=== PATIENT | male | born 1955 | race African-American/Black ===

== ENCOUNTER 2017-04-11 15:50 | Inpatient (IN) | payer MEDICARE, SELFPAY ==
[2017-04-11 16:49] LABS: #Eosinphils 0.1 thou/uL (0.0-0.7); #Lymphocytes 0.9 thou/uL (1.20-3.40); #Monocytes 0.6 thou/uL (0.11-0.59); #Neutrophils 5.4 thou/uL (1.40-6.50); %Basophils 0.4 % (0.0-1.0); %Eosinophils 0.8 % (0.0-10.0); %Monocytes 7.9 % (0.0-10.0); %Neutrophils 77.9 % (42.0-75.0); Hemoglobin 11.1 g/dL (14.0-18.0); Mean Corpuscular HGB CONC 31.6 g/dL (32.0-36.0); Mean Corpuscular Hemoglobin 31.2 pg (27.0-31.0); Mean Corpuscular Volume 98.8 fl (80.0-94.0); Mean Platelet Volume 7.2 fL (7.4-10.4); Platelet Count 226 thou/uL (130-400); RBC Distribution Width 18.4 % (11.5-14.5); Red Blood Cell (RBC) Count 3.56 mill/uL (4.70-6.10); White Blood Cell (WBC) Count 6.9 thou/uL (4.8-10.8)
--- NOTE | 2017-04-11 17:01 | RAD ---
PORTABLE AP CHEST X-RAY 04/11/17 HISTORY: Weakness for one day. Patient missed last three dialysis appointments. FINDINGS: There is a right internal jugular vein hemodialysis catheter noted in place with tip overlying the lo wer mediastinum probably in the region of the right atrium. A cardiac silhouette and bronchovascular markings are accentuated by the shallow depth of inspiration and portable technique. The cardiac silh ouette is probably enlarged. Pulmonary vasculature is at upper normal and again magnified by projecti on. No pleural effusion is appreciated. Osseous structures appear intact. Vascular calcifications see n in the thoracic aorta. IMPRESSION: 1. Tunneled right internal jugular vein hemodialysis catheter in place. The tip overlies the med iastinum and exact location is difficult to determine but overlie the right atrium. 2. Accentuation of the cardiac silhouette and bronchovascular markings due to a shallow depth of inspiration and portable technique. 3. Patchy density left lung base probably due to superimposition of structures and atelectasis d ue to depth of inspiration. Followup chest x-ray may be helpful to ensure this does not represent inf iltrate. POS: TORRIE
[2017-04-11 17:10] LABS: ALT (SGPT) 18 U/L (8-55); AST (SGOT) 24 U/L (5-34); Alkaline Phosphatase 58 U/L (40-150); Anion Gap 22 mmol/L (10-20); BUN (Urea Nitrogen) 107 mg/dL (8.4-25.7); Bilirubin, Total 0.6 mg/dL (0.2-1.2); CK (CPK) 392 U/L (30-200); Calc. Creatinine Clearance 0 mL/min (70-130); Calcium 10.3 mg/dL (7.8-10.44); Carbon Dioxide 22 mmol/L (23-31); Chloride 102 mmol/L (98-107); Estimated GFR-MDRD 3; Globulin 3.4 g/dL (2.4-3.5); Lipase 64 U/L (8-78); Magnesium 2.8 mg/dL (1.6-2.6); Protein, Total 7.4 g/dL (5.8-8.1); Sodium 138 mmol/L (136-145)
[2017-04-11 17:15] LABS: Glucose 51 mg/dL (80-115); Potassium 7.7 mmol/L (3.5-5.1)
[2017-04-11] MEDS ORDERED: Calcium Chloride 1 GM/10 ML Abboject SYRINGE ONE (17:32)
[2017-04-11] MEDS ORDERED: Insulin Regular 300 UNITS/3 ML VIAL ONE (17:32)
[2017-04-11] MEDS ORDERED: Sodium Bicarbonate 2.5 MEQ/5 ML VIAL ONE (17:32)
[2017-04-11] MEDS ORDERED: Dextrose 50% Abboject 50 ML SYRINGE ONE (17:34)
[2017-04-11] MEDS ORDERED: Sodium Bicarb 50 MEQ/50 ML Abboject 8.4% SYRINGE ONE (17:42)
[2017-04-11] MEDS ORDERED: Albuterol Sulfate 2.5 mg/3 ml Neb ONE (17:57)
[2017-04-11 18:00] LABS: CKMB 22.7 ng/mL (0-6.6)
[2017-04-11 19:08] LABS: Hep B Surf Ag Non-Reactive S/CO (NonReactive)
[2017-04-11 19:09] LABS: HBSAg Index 0.13 S/CO (0-0.99)
[2017-04-11 19:12] LABS: HBSAB Concentration 183.39 mIU/mL; Hep B Surf AB Reactive (NonReactive)
[2017-04-11] MEDS ORDERED: cloNIDine 0.1 MG TAB PO PRN (19:35)
[2017-04-11] MEDS ORDERED: Dextrose 50% Abboject 50 ML SYRINGE SLOW IVP PRN (19:36)
[2017-04-11] MEDS ORDERED: Nitroglycerin 0.4 MG TAB (25 Tab Bottle) PO PRN (19:36)
[2017-04-11] MEDS ORDERED: Dextrose 5% in Water 1,000 ML IV PRN (19:36)
[2017-04-11] MEDS ORDERED: Insulin Regular 300 UNITS/3 ML VIAL SC PRN ×2 (19:36)
[2017-04-11] MEDS ORDERED: Ondansetron ODT 4 MG TAB PO PRN (19:39)
[2017-04-11] MEDS ORDERED: Senokot 8.6 MG TAB PO PRN (19:39)
[2017-04-11] MEDS ORDERED: Ondansetron HCl/PF 4 MG/2 ML Vial IVP PRN (19:39)
[2017-04-11] MEDS ORDERED: hydrALAZINE 20 MG/ML VIAL SLOW IVP PRN (19:40)
[2017-04-11] MEDS ORDERED: Acetaminophen 325 MG TAB PO PRN (19:53)
[2017-04-11 20:01] LABS: Potassium 7.3 mmol/L (3.5-5.1)
--- NOTE | 2017-04-11 20:04 | HP ---
DATE OF ADMISSION: 04/11/2017 PRIMARY CARE PHYSICIAN: HELEN. PRIMARY CERTIFIED ADAPTED PHYSICAL EDUCATOR: Dr. Brooke. CHIEF COMPLAINT: Generalized weakness. The patient is a transfer from [facility]. HISTORY OF PRESENT ILLNESS: The patient is a 61-year-old male with diabetes mellitus, type 2; end-st age renal disease, on hemodialysis Thursday, , and Thursday; obesity and reactive airway disea se; who presented to [facility] with generalized weakness along with chills. His workup at [facility] was consistent with severe hyperkalemia with potassium of 8.6 with BUN 99, creatinine 18. 25. His chest x-ray showed possible fluid overload. He was transferred to this facility for [facility] admission per Dr. Brooke. He received calcium chloride, insulin D50, sodium bicarbonate, Kayexalate a nd nebulizer treatment in the emergency room. He is currently on noninvasive positive pressure venti lation. His potassium at this facility was 7.7. At this time, not much information is available fro m the patient due to somnolence as well as use of noninvasive positive pressure ventilation. PAST MEDICAL HISTORY: Obtained from ER record. 1. Diabetes mellitus, type 2. 2. End-stage renal disease, on hemodialysis Thursday, , and Thursday. 3. Hyperlipidemia. 4. Hypertension. 5. Obesity. 6. Reactive airway disease. 7. Restless leg syndrome. PAST SURGICAL HISTORY: 1. Dialysis access. The patient currently has a tunneled catheter. 2. Cholecystectomy. 3. Tonsillectomy. ALLERGIES: No known drug allergies. CURRENT HOME MEDICATIONS: Cannot be obtained from the patient due to current cognitive status. SOCIAL HISTORY: The patient currently lives at home. Per ER record, he is a former smoker. FAMILY HISTORY: Cannot be obtained from the patient due to current cognitive status. REVIEW OF SYSTEMS: Cannot be obtained from the patient due to the same reason. PHYSICAL EXAMINATION: VITAL SIGNS: At [facility] showed temperature 98.2, respirations of 18, pulse rate of 74, blood pressure 160/83. GENERAL: A 61-year-old male, obese, somnolent, on noninvasive positive pressure ventilation. HEENT: Head atraumatic, normocephalic. Sclerae are anicteric. NECK: Neck veins distended. No carotid bruit. LUNGS: Showed bibasilar rales with scattered rhonchi. No wheezing. Lungs were symmetrical. The abran hopper is currently on BiPAP. HEART: S1, S2 present. Regular rate and rhythm, 2/6 systolic murmur over the mitral area. No heave s or pulsation. ABDOMEN: Soft, obese, bowel sounds present. EXTREMITIES: 3+ edema in bilateral lower extremities. No calf tenderness. SKIN: Warm and dry. LYMPH NODES: No palpable lymph nodes in the neck. PERIPHERAL VASCULAR: Radial pulses palpable bilaterally. MUSCULOSKELETAL: No joint swelling or tenderness. NEUROLOGIC: The patient is somnolent. Detailed neurological examination cannot be obtained. PSYCHIATRY: As discussed above. The patient is easily arousable. LABORATORY FINDINGS: As discussed above. Chest x-ray by my review as discussed above. Hemoglobin w as 10.9 with hematocrit 34.5. Sodium was 138, potassium 8.6, bicarbonate was 18. Chloride was 100. EKG by my review showed nonspecific ST-T wave changes in the inferior lead. IMPRESSION: 1. Life-threatening hyperkalemia secondary to missed hemodialysis. The patient has missed 3 hemodia lysis sessions per ER report. 2. Metabolic acidosis secondary to the same reason. 3. End-stage renal disease, on hemodialysis Thursday, , and Thursday. 4. Generalized weakness with somnolence, probably secondary to #1. 5. Diabetes mellitus, type 2. 6. Chronic anemia secondary to renal insufficiency. 7. Elevated troponin. His troponin was 0.11 with CK-MB 22.7. 8. Acute hypoxic respiratory failure secondary to volume overload. 9. Hyperlipidemia. 10. History of reactive airway disease. PLAN: The patient will be monitored in the intermediate care unit. We will continue noninvasive pos itive pressure ventilation. Nephrology has been consulted for emergent hemodialysis. We will trend troponins. We will confirm home medications and start accordingly. Insulin sliding scale. Repeat l abs in a.m. Nitropatch for now. Plan of care was discussed with the patient. No family at the [facility].
[2017-04-11 20:12] LABS: Troponin I 0.104 ng/mL (< 0.028)
[2017-04-11] MEDS: Famotidine/PF 20 mg/2ml Vial SLOW IVP SCH (21:08)
[2017-04-11] MEDS: Heparin 5,000 UNITS/ML VIAL SC SCH (21:08)
[2017-04-11] MEDS: Docusate 100 MG CAP PO SCH (21:09)
[2017-04-12] MEDS: Nitroglycerin 2% Ointment 1 INCH/1 GM Packet TOP SCH ×5 (00:57→23:53)
[2017-04-12 04:52] LABS: #Lymphocytes 0.5 thou/uL (1.20-3.40); #Monocytes 0.5 thou/uL (0.11-0.59); #Neutrophils 2.7 thou/uL (1.40-6.50); %Basophils 0.9 % (0.0-1.0); %Eosinophils 1.2 % (0.0-10.0); Hemoglobin 9.6 g/dL (14.0-18.0); Mean Corpuscular HGB CONC 31.9 g/dL (32.0-36.0); Mean Corpuscular Hemoglobin 31.5 pg (27.0-31.0); Mean Corpuscular Volume 98.8 fl (80.0-94.0); Platelet Count 195 thou/uL (130-400); RBC Distribution Width 18.2 % (11.5-14.5); Red Blood Cell (RBC) Count 3.05 mill/uL (4.70-6.10); White Blood Cell (WBC) Count 3.8 thou/uL (4.8-10.8)
[2017-04-12 05:13] LABS: Anion Gap 14 mmol/L (10-20); BUN (Urea Nitrogen) 40 mg/dL (8.4-25.7); Calc. Creatinine Clearance 12 mL/min (70-130); Calcium 9.2 mg/dL (7.8-10.44); Carbon Dioxide 30 mmol/L (23-31); Chloride 98 mmol/L (98-107); Estimated GFR-MDRD 6; Glucose 97 mg/dL (80-115); Potassium 4.6 mmol/L (3.5-5.1); Sodium 137 mmol/L (136-145)
[2017-04-12 05:15] LABS: Troponin I 0.114 ng/mL (< 0.028)
[2017-04-12 07:12] VITALS: BMI 28.9
--- NOTE | 2017-04-12 08:14 | RAD ---
RADIOGRAPH CHEST 1 VIEW: Date: 04/12/17. Time: 5:24 a.m. HISTORY: A 61-year-old male with fluid volume overload and respiratory distress. COMPARISON: 04/11/17, 4:29 p.m. FINDINGS: Lungs are hypoinflated again, making this a limited study. There is pulmonary venous engorgement whi ch appears slightly improved, probably due to positional differences. Right IJ double lumen dialysis catheter deep in the heart. Cardiomegaly. No alexandra pulmonary alveolar edema or consolidation visua lized, although much of the lower lobes are obscured by the hypoinflation of the lungs. No pneumotho rax. Probable no significant interval change. IMPRESSION: 1. No definite interval change. 2. Right internal jugular dialysis catheter distal tip at midline, exact location uncertain. 3. Cardiomegaly and pulmonary vascular engorgement. SHRUTHI [] POS: TORRIE
[2017-04-12] MEDS: Docusate 100 MG CAP PO SCH ×2 (08:17→21:21)
[2017-04-12] MEDS: Aspirin 325 MG TAB PO SCH (08:17)
[2017-04-12] MEDS: Heparin 5,000 UNITS/ML VIAL SC SCH ×3 (08:17→21:22)
[2017-04-12] MEDS: Sevelamer Carbonate 800 MG TAB PO SCH ×2 (12:29→16:27)
--- NOTE | 2017-04-12 14:16 | PDOC.PN ---
- Subjective Encounter Start Date: 04/12/17 Encounter Start Time: 14:14 Subjective: feels much better,back to baseline -: no chest pain/SOB/chills/cough - Objective Resuscitation Status: Resuscitation Status FULL:Full Resuscitation Vital Signs & Weight: Vital Signs (12 hours) Temp Pulse Resp BP Pulse Ox 04/12/17 12:09 99.5 F 78 18 121/64 99 04/12/17 11:42 78 16 04/12/17 08:00 100 F H 81 14 96 04/12/17 07:54 94 16 04/12/17 07:42 100.0 F H 81 14 124/57 L 96 04/12/17 07:35 95 04/12/17 06:10 98.9 F 78 16 124/55 L 97 04/12/17 03:50 99.2 F 83 18 135/64 96 04/12/17 02:37 88 15 97 Weight Weight 213 lb 8 oz I&O: 04/11/17 04/12/17 04/13/17 06:59 06:59 06:59 Intake Total 360 Output Total 4000 Balance -3640 Result Diagrams: 04/12/17 04:22 04/12/17 04:22 Additional Labs: Accuchecks 04/12/17 04/12/17 04/12/17 11:45 05:42 02:29 POC Glucose 78 90 112 H 04/12/17 04/11/17 04/11/17 01:47 21:17 20:33 POC Glucose 69 L 92 67 L 04/11/17 04/11/17 18:32 17:51 POC Glucose 157 H 55 L* Radiology Reviewed by me: Yes (CXR-no PNA.mild pulm edema) Phys Exam - Physical Examination Constitutional: NAD HEENT: PERRLA, moist MMs, sclera anicteric, oral pharynx no lesions Neck: no nodes, no JVD, supple, full ROM Respiratory: no wheezing, no rales, no rhonchi, clear to auscultation bilateral Cardiovascular: RRR, no significant murmur, no rub, gallop Musculoskeletal: no edema, pulses present Neurological: non-focal, normal sensation, moves all 4 limbs Psychiatric: normal affect, A&O x 3 Skin: no rash Dx/Plan (1) Acute respiratory failure Code(s): J96.00 - ACUTE RESPIRATORY FAILURE, UNSP W HYPOXIA OR HYPERCAPNIA Status: Acute Qualifiers: Respiratory failure complication: hypoxia Qualified Code(s): J96.01 - Acute respiratory failure with hypoxia (2) Volume overload Code(s): E87.70 - FLUID OVERLOAD, UNSPECIFIED Status: Acute Comment: d/t missed HD (3) Acute kidney injury superimposed on chronic kidney disease Code(s): N17.9 - ACUTE KIDNEY FAILURE, UNSPECIFIED; N18.9 - CHRONIC KIDNEY DISEASE, UNSPECIFIED Status: Acute (4) Hyperkalemia Code(s): E87.5 - HYPERKALEMIA Status: Resolved (5) Fever Code(s): R50.9 - FEVER, UNSPECIFIED Status: Acute (6) ESRD (end stage renal disease) on dialysis Code(s): N18.6 - END STAGE RENAL DISEASE; Z99.2 - DEPENDENCE ON RENAL DIALYSIS Status: Acute (7) Troponin I above reference range Code(s): R74.8 - ABNORMAL LEVELS OF OTHER SERUM ENZYMES Status: Acute Comment: Likley chronic due to CKD or demand ischemia (8) HTN (hypertension) Code(s): I10 - ESSENTIAL (PRIMARY) HYPERTENSION Status: Chronic (9) HLD (hyperlipidemia) Code(s): E78.5 - HYPERLIPIDEMIA, UNSPECIFIED Status: Chronic (10) DM2 (diabetes mellitus, type 2) Status: Chronic (11) Anemia in chronic kidney disease Code(s): N18.9 - CHRONIC KIDNEY DISEASE, UNSPECIFIED; D63.1 - ANEMIA IN CHRONIC KIDNEY DISEASE Status: Chronic Qualifiers: Chronic kidney disease stage: on chronic dialysis Qualified Code(s): N18.6 - End stage renal disease; D63.1 - Anemia in chronic kidney disease; D63.1 - Anemia in chronic kidney disease; Z99.2 - Dependence on renal dialysis; Z99.2 - Dependence on renal dialysis; Z99.2 - Dependence on renal dialysis; Z99.2 - Dependence on renal dialysis - Plan PT/OT, out of bed/ambulate, DVT proph w/SCDs Off of [place] post HD & fluid removal.Potassium normalized.monitor -: Ok to transfer to tele. -: fever w unknown sourse.will check Blood Cx & line Cx.avoid ABx for now -: restart home meds & cont supportive care -: appreciate nephrology input. * .ECHO pending.cont ASA Review of Systems - Review of Systems Constitutional: weakness, malaise. negative: fever, chills, sweats, other ENT: negative: Ear Pain, Ear Discharge, Nose Pain, Nose Discharge, Nose Congestion, Mouth Pain, Mouth Swelling, Throat Pain, Throat Swelling, Other Respiratory: negative: Cough, Dry, Shortness of Breath, Hemoptysis, SOB with Excertion, Pleuritic Pain, Sputum, Wheezing Cardiovascular: negative: chest pain, palpitations, orthopnea, paroxysmal nocturnal dyspnea, edema, light headedness, other Gastrointestinal: negative: Nausea, Vomiting, Abdominal Pain, Diarrhea, Constipation, Melena, Hematochezia, Other Genitourinary: negative: Dysuria, Frequency, Incontinence, Hematuria, Retention , Other Musculoskeletal: negative: Neck Pain, Shoulder Pain, Arm Pain, Back Pain, Hand Pain, Leg Pain, Foot Pain, Other Skin: negative: Rash, Lesions, Diaz, Bruising, Other Neurological: negative: Weakness, Numbness, Incoordination, Change in Speech, Confusion, Seizures, Other - Medications/Allergies Allergies/Adverse Reactions: Allergies Allergy/AdvReac Type Severity Reaction Status Date / Time No Known Drug Allergies Allergy Verified 04/11/17 20:15 Medications: Current Medications Albuterol/Ipratropium (Duoneb) 3 ml NEB [id number] [facility] Last Admin: 04/12/17 11:42 Dose: 3 ml Albuterol/Ipratropium (Duoneb) 3 ml NEB [id number] PRN PRN Reason: SOB &/or Wheezing Aspirin (Aspirin) 325 mg PO DAILY [facility] Last Admin: 04/12/17 08:17 Dose: 325 mg Clonidine (Catapres) 0.1 mg PO Q4H PRN PRN Reason: Systolic BP > 180 Dextrose/Water (Dextrose 50%) 25 gm SLOW IVP PRN PRN PRN Reason: Hypoglycemia Docusate Sodium (Colace) 100 mg PO BID [facility] Last Admin: 04/12/17 08:17 Dose: Not Given Epoetin Graham (Procrit) 7,500 units SC Q7D [facility] Famotidine (Pepcid) 20 mg SLOW IVP QPM [facility] Last Admin: 04/11/17 21:08 Dose: 20 mg Glucagon (Glucagon) 1 mg IM PRN PRN PRN Reason: Hypoglycemia Heparin Sodium (Porcine) (Heparin) 5,000 units SC TID [facility] Last Admin: 04/12/17 08:17 Dose: 5,000 units Hydralazine HCl (Apresoline) 10 mg SLOW IVP Q4H PRN PRN Reason: SBP Greater Than 180 Dextrose/Water (D5w) 1,000 mls @ 0 mls/hr IV .Q0M PRN; As Directed PRN Reason: Hypoglycemia Insulin Human Regular (Humulin R) 0 units SC .MILD SLIDING SCALE PRN PRN Reason: Mild Correctional Scale Insulin Human Regular (Humulin R) 0 units SC .BEDTIME SLIDING SC PRN PRN Reason: Bedtime Correctional Scale Nitroglycerin (Nitrostat) 0.4 mg PO Q5MIN PRN PRN Reason: Chest Pain Nitroglycerin (Nitro-Bid 2% Ointment) 0.5 inch TOP Q6HR [facility] Last Admin: 04/12/17 12:27 Dose: 0.5 inch Ondansetron HCl (Zofran Odt) 4 mg PO Q6H PRN PRN Reason: Nausea/Vomiting Ondansetron HCl (Zofran) 4 mg IVP Q6H PRN PRN Reason: Nausea/Vomiting Senna (Senokot) 2 tab PO HSPRN PRN PRN Reason: Constipation Sevelamer Carbonate (Renvela) 1,600 mg PO TID-[facility] Last Admin: 04/12/17 12:29 Dose: 1,600 mg Sodium Chloride (Flush - Normal Saline) 10 ml IVF Q12HR [facility] Last Admin: 04/12/17 08:17 Dose: 10 ml Sodium Chloride (Flush - Normal Saline) 10 ml IVF PRN PRN PRN Reason: Saline Flush
--- NOTE | 2017-04-12 14:28 | CON ---
DATE OF CONSULTATION: 04/12/2017 HISTORY OF PRESENT ILLNESS: Mr. Monge is a 61-year-old black male with known history of ESRD, hyper tension, COPD, type 2 diabetes mellitus, and admitted for severe hyperkalemia. The report was he had a potassium greater than 8. He was also in CHF. Please note, this patient has missed dialysis for 1 week. This is due to transportation problems. We were consulted for emergency dialysis yesterday. He underwent 4-hour hemodialysis. We did use a 1-0 potassium bath in the first 2 hours. With emergent dialysis, his potassium is much improved from 8.6 to most recent value of 4.0. REVIEW OF SYSTEMS: Positive for generalized weakness. Positive for mild shortness of breath. No na usea, no vomiting, no syncopal episode, no diarrhea. Appetite fair. Energy level is fair. No gross hematuria, no dysuria, no urinary frequency, no medications, no melena, no hematemesis, no headache, no diplopia, no syncopal episode, no fever or chills. MEDICATIONS: Aspirin 325 mg every day, Catapres 0.1 mg q.4 hours p.r.n., Pepcid 20 mg IV p.r.n., fam otidine 20 mg IV daily, Humulin R sliding scale, Zofran p.r.n. PAST MEDICAL HISTORY: 1. History of ESRD secondary to a presumed diabetic nephropathy. 2. Longstanding hypertension. 3. Type 2 diabetes mellitus. 4. COPD. 5. Restless leg syndrome. PAST SURGICAL HISTORY: 1. Status post PD catheter placement with subsequent removal secondary to peritonitis. 2. Status post cholecystectomy. 3. Status post tonsillectomy. 4. Status post cuffed dialysis, catheter placement. ALLERGIES: None. TRAUMA: None. IMMUNIZATIONS: Up-to-date. HOSPITALIZATIONS: Please see past medical history. SOCIAL HISTORY: The patient is . 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 Status post blood transfusion. Education: Some college courses. No IV abbe g abuse. Smoked for 5 years, 1 pack a day. Alcohol rarely. Sedentary lifestyle. FAMILY HISTORY: No family history of ESRD. PHYSICAL EXAMINATION: VITAL SIGNS: Blood pressure is 124/57 with a heart rate of 81, respiratory rate 14, pulse ox 96%, te mperature 100. GENERAL EXAM: Awake, alert, comfortable, not in distress. SKIN: Adequate turgor. HEENT: He has slightly pale conjunctivae, anicteric sclerae. NECK: No neck mass, no carotid bruits, no JVD. CHEST: No deformities. LUNGS: Clear breath sounds, no wheezing, no crackles. HEART: Normal sinus rhythm. No murmur, no gallops, or rubs. ABDOMEN: Globular, soft, nontender, no masses. EXTREMITIES: Positive for edema, no deformities. NEUROLOGICAL EXTREMITIES: Moving all extremities. No tremors, no asterixis, no ataxia. LABORATORY DATA: Laboratories of 04/12/2017, white count 3.8, hemoglobin 9.6, sodium 137, potassium 4.6, chloride 98, carbon dioxide 30, BUN 40, creatinine 8.68, troponin I 0.114. Chest x-ray shows CH F. ASSESSMENT AND PLAN: 1. Hyperkalemia, resolved with emergent hemodialysis. No indication for dialysis today. 2. End-stage renal disease. We will place this patient on his regular Thursday, , and ay dialysis regimen. We would be also consulting Dr. iSngh/Dr. Beckett for PD catheter placement. 3. Congestive heart failure, clinically improved with dialysis. Continue fluid removal with dialysi s. 4. Anemia. Resume Epogen 7500 units subcutaneously every week. Overall, prognosis remains guarded.
[2017-04-12] MEDS: Epoetin (ESRD) 20,000 UNITS/ML SC SCH (16:29)
[2017-04-12] MEDS: Famotidine/PF 20 mg/2ml Vial SLOW IVP SCH (21:21)
--- NOTE | 2017-04-12 22:43 | CON ---
DATE OF CONSULTATION: 04/12/2017 SERVICE: Pulmonary Medicine. REASON FOR CONSULTATION: [facility] patient. HISTORY OF PRESENT ILLNESS: The patient is a 61-year-old -[place] male with past medical history significant for end-stage renal disease. He was in his usual state of health when he started missing dialysis, because his car broke down. He does not have the money to fix it. He called [employer] and [employer] for rides to his dialysis, but apparently they did not service him. As such, he ended up missing several dialysis sessions. He became increasingly short of breath. Apparently, he developed some confusion and he was brought to the emergency department. He has no recollection of those events. When he arrived here, he required noninvasive ventilation, and he was completely obtunded. He underwent dialysis last night and had a significant improvement in his mentation as well as shortness of breath. He has essentially returned to his usual state of health and has no specific complaints. There were no events overnight. PAST MEDICAL HISTORY: 1. End-stage renal disease, unfortunately without good access to transportation for dialysis. 2. Type 2 diabetes mellitus. 3. Hypertension. 4. Dyslipidemia. 5. Restless legs syndrome. 6. Obesity. PAST SURGICAL HISTORY: 1. Dialysis access procedures, multiple. 2. Cholecystectomy. 3. Tonsillectomy. ALLERGIES: No known drug allergies. MEDICATIONS: List of inpatient medications were reviewed. No specific updates were made. FAMILY HISTORY: Noncontributory. SOCIAL HISTORY: Negative for alcohol, tobacco, or illicit drug use. He has a [id number] history of smoking, but quit over 10 years ago. He has no exposure to chemicals, dust asbestos, or tuberculosis. REVIEW OF SYSTEMS: General, head, ears, eyes, nose, throat, cardiovascular, respiratory, GI, , musculoskeletal, neurologic, and skin is negative except as mentioned in the HPI. PHYSICAL EXAMINATION: VITAL SIGNS: Afebrile with a T-max of 100.0, pulse 78, blood pressure 121/64, respirations 18, saturation 99% on room air. GENERAL: The patient is awake, alert, in no apparent distress. LUNGS: Excellent air entry without prolonged expiratory phase, wheezing, rhonchi, or crackles. HEART: Normal rate, regular. ABDOMEN: Soft, nontender, nondistended. Bowel sounds are positive. MUSCULOSKELETAL: No cyanosis or clubbing. No pitting in the bilateral lower extremities. NEUROLOGIC: Grossly nonfocal. LABORATORY DATA: WBC 3.8, hemoglobin 9.6, platelets 195,000. Creatinine was 17.9, but is now 8.68. BUN 40, down from 107. Basic metabolic profile is, otherwise, unremarkable. Troponin 0.114. Hepatitis B surface antibody is reactive. IMAGING: Chest x-ray demonstrates findings consistent with pulmonary vascular congestion. Low lung volumes accentuate interstitial markings. There is a right-sided vascular catheter, which terminates in decent position. ASSESSMENT: 1. Acute hypoxic respiratory failure, resolved. 2. End-stage renal disease. 3. Medical noncompliance/inability to transport to and from dialysis. 4. Non-ST elevation myocardial, secondary to demand. PLAN: The patient is currently stable for transition out of the IMCU to the medical unit. I will put a case management consultation in to see if they have any tricks at getting this patient to and from dialysis. Pulmonary Critical Care will continue to follow if he remains here, though when he goes to the floor, he will have no further requirements for my service and I will sign off. 70 minutes have been devoted to this patient in various activities. I personally reviewed all imaging studies and laboratory data noted within this document. For greater than fifty percent of this time, I was interacting with the patient at the bedside or coordinating care with the care team. For the remainder of the time I was immediately available to the patient in the hospital unit. JAS
[2017-04-13] MEDS: Nitroglycerin 2% Ointment 1 INCH/1 GM Packet TOP SCH ×4 (05:07→23:52)
[2017-04-13 05:40] LABS: #Eosinphils 0.1 thou/uL (0.0-0.7); #Lymphocytes 1.2 thou/uL (1.20-3.40); #Monocytes 0.7 thou/uL (0.11-0.59); %Basophils 0.2 % (0.0-1.0); %Eosinophils 2.1 % (0.0-10.0); %Lymphocytes 20.3 % (21.0-51.0); %Monocytes 11.3 % (0.0-10.0); %Neutrophils 66.2 % (42.0-75.0); Hemoglobin 9.9 g/dL (14.0-18.0); Mean Corpuscular HGB CONC 31.5 g/dL (32.0-36.0); Mean Corpuscular Hemoglobin 30.6 pg (27.0-31.0); Mean Corpuscular Volume 97.3 fl (80.0-94.0); Mean Platelet Volume 7.1 fL (7.4-10.4); Platelet Count 212 thou/uL (130-400); RBC Distribution Width 18.2 % (11.5-14.5); Red Blood Cell (RBC) Count 3.24 mill/uL (4.70-6.10); White Blood Cell (WBC) Count 6.1 thou/uL (4.8-10.8)
[2017-04-13 05:53] LABS: Anion Gap 18 mmol/L (10-20); BUN (Urea Nitrogen) 52 mg/dL (8.4-25.7); Calc. Creatinine Clearance 10 mL/min (70-130); Calcium 9.3 mg/dL (7.8-10.44); Carbon Dioxide 25 mmol/L (23-31); Chloride 94 mmol/L (98-107); Estimated GFR-MDRD 5; Glucose 100 mg/dL (80-115); Potassium 5.2 mmol/L (3.5-5.1); Sodium 132 mmol/L (136-145)
[2017-04-13 08:52] LABS: Base Excess-Venous -6.4 mmol/L (-30.0-30.0); Bicarbonate (HCO3v) 23.8 mmol/L (1.0-85.0); CO2 Tension (PvCO2) 72.2 mmHg (41.0-51.0); pH (Venous) 7.125 (7.35-7.45); vO2 Saturation-calc 76.8 % (0.0-100.0)
[2017-04-13 08:57] LABS: Calcium, Ionized 1.18 mmol/L (1.12-1.32)
[2017-04-13] MEDS: Aspirin 325 MG TAB PO SCH (09:06)
[2017-04-13] MEDS: Docusate 100 MG CAP PO SCH ×2 (09:06→21:56)
[2017-04-13] MEDS: Heparin 5,000 UNITS/ML VIAL SC SCH (09:06)
--- NOTE | 2017-04-13 09:13 | PRG ---
DATE OF SERVICE: 04/13/2017 SUBJECTIVE: Mr. Monge is a 61-year-old black male who was admitted for severe hyperkalemia and CHF. He underwent emergent hemodialysis. Potassium was much improved as of yesterday. A surgical consu lt has been done for AV fistula placement with him and placement of a PD catheter. He has been unabl e to go to [place] due to transportation problems. He also missed dialysis for 1 week due to transpor tation problem. I feel that it would be to the best interest of the patient to resume back peritonea l dialysis. No other complaints today, he feels better. PHYSICAL EXAMINATION: VITAL SIGNS: Blood pressure is 154/80, heart rate 92, respiratory rate 18, temperature 99.2, pulse o x 94%. GENERAL: Noted to be awake, alert, comfortable, not in distress. SKIN: Adequate turgor. HEENT: He has pinkish conjunctivae, anicteric sclerae. NECK: No neck mass, no carotid bruits, no JVD. CHEST: No deformities. LUNGS: Clear breath sounds. No wheezing, no crackles. HEART: Normal sinus rhythm. No murmur, no gallops, no rubs. ABDOMEN: Globular, soft, nontender. EXTREMITIES: No edema, no deformities. MEDICATIONS: 04/13/2017 - Reviewed. LABORATORY: 04/13/2017 - White count 6.1, hemoglobin 9.9. Sodium 132, potassium 5.2, chloride 94, c arbon dioxide 25, BUN 52, creatinine 10.54, calcium 9.3. ASSESSMENT AND PLAN: 1. Severe hyperkalemia, resolved with emergent hemodialysis. 2. End-stage renal disease. We will resume back Thursday, , and Thursday hemodialysis regime n. Fluid removal only as tolerated. 3. Anemia, on Epogen - weekly dosing. 4. Congestive heart failure, clinically improved. Case discussed with Dr. Singh. The plan is to p lace a PD catheter and to place a backup AV fistula. I agree with current management. We will check base met and CBC in a.m.
[2017-04-13] MEDS: Sevelamer Carbonate 800 MG TAB PO SCH ×3 (09:55→18:41)
[2017-04-13] MEDS ORDERED: Gabapentin 300 MG CAP PO SCH (10:30)
[2017-04-13] MEDS ORDERED: CEFAZOLIN/Water 2 GM/20 ML SYRINGE SLOW IVP SCH (10:30)
[2017-04-13] MEDS ORDERED: Amlodipine 5 MG TAB PO SCH (10:30)
--- NOTE | 2017-04-13 12:00 | HP ---
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 He feels m uch better now that he has had several dialysis sessions. Dr. Rubén Brooke has asked me to see him regarding placement of peritoneal dialysis. Patient approximately 3 years ago had a hemodialysis catheter placed and the peritoneal dialysis cath eter placed. He was undergoing peritoneal dialysis, but developed an infection and had to have his p eritoneal dialysis catheter removed and for the past several months has been using a right IJ cuffed tunneled dialysis catheter placed in [place] at [facility]. Patient had a peritoneal dialysis cath eter for about two years, undergoing peritoneal dialysis. He had a place to an open incision in his upper abdomen in [place]. He has developed an incisional hernia from that. Patient has had a left Ci salazar fistula placed at the [facility] for more than two or three years ago. It never worked for roland lysis. He had a revised once at the wrist level and then a third time at the wrist level with appare ntly placement of a segmental prosthetic graft and that never worked. [facility] a right antecubital IV that upon my consultation request. Orders were submitted to avoid a ll of these above the wrist and this was immediately removed and they are making an attempt to place IVs in his hand. Ultrasound vein mapping both arms has been requested and pending. ALLERGIES: None. TOBACCO: None. ALCOHOL: Rarely. SOCIAL HISTORY: Patient lives alone, single. HOME MEDICATIONS: Hydralazine 25 b.i.d., glipizide 10 mg daily, amlodipine 10 mg daily, folic acid d aily, gabapentin 300 mg every 2 days, calcitriol 0.5 mcg daily. PAST SURGICAL HISTORY: Left wrist Juan Carlos fistula revised twice for a total of 3 operations, the last operation placing a prosthetic graft segment in the distal forearm and this fistula never worked for dialysis. Open peritoneal dialysis catheter placement in [place] with a supraumbilical midline incis ion resulting incisional hernia. Subsequent catheter removed, now on hemodialysis via right IJ michelle ter present for 3 months. Laparoscopic cholecystectomy in the past. Patient has had a chemical card iac stress test in [place]. In preparation for his renal transplant, he reports this cardiac stress test to be normal with normal cardiac function. He has not had a colonoscopy, but that is on his age nda in preparation for his renal transplant. PAST MEDICAL HISTORY: Diabetes mellitus type 2. He uses insulin occasionally. Pending his sliding scale insulin. End-stage renal disease on hemodialysis Thursday, , and Thursday in [place]. Hyperlipidemia, hypertension, obesity, reactive airway disease, restless leg syndrome. REVIEW OF SYSTEMS: Ten point otherwise noncontributory. PHYSICAL EXAMINATION: VITAL SIGNS: 6 feet, 227 pounds, 30 BMI, 92, 16, 154/80. HEENT: Unremarkable. LUNGS: Clear to auscultation. CARDIAC: Regular rate and rhythm without murmur or gallop. ABDOMEN: Soft, scars from left lower quadrant previous peritoneal dialysis catheter presence and rem oval. Incisional hernia, supraumbilical vertical scar from PD catheter placement in [place]. EXTREMITIES: Left wrist distal forearm. Palpable prosthetic graft thrombosed, no thrill, or bruit, bandage right antecubital area indicative of recent IV access, recently removed just prior to my visi t. Palpable radial pulses. LABORATORY DATA: White count 6, hemoglobin 9.9. ASSESSMENT AND PLAN: 1. End-stage renal disease in need of dialysis access. He has been on peritoneal dialysis previousl y, would like to return to that. We will plan Thursday afternoon. Laparoscopic mesh repair of incisi onal hernia, laparoscopic peritoneal dialysis catheter placement and placement of left or right arm p rimary fistula site depending on vein mapping. I have educated the patient that he should not allow anybody place an IV above his hand. He should s ave his arms for dialysis access. Even if he has a functioning fistula in one arm, he should save th e other arm and not allow IV access or blood draws in antecubital area. Understanding the fistula wi ll not last forever and that he may need to access the contralateral arm. 2. Incisional hernia. Plan repair using mesh, open versus laparoscopic repair considered. Consider ing his small defect about 3 cm, I believe that we can close this laparoscopically and place mesh and this will be less invasive to him. He should avoid lifting more than 25 to 30 pounds for [address]. 3. Diabetes mellitus. 4. Hypertension. 5. History of normal chemical cardiac stress test recently. 6. Due for colonoscopy. He is arranged as an outpatient.
--- NOTE | 2017-04-13 13:34 | ULT ---
UPPER EXTREMITY VENOUS MAPPING FOR DIALYSIS ACCESS: Date: 04/13/17 HISTORY: Patient has a right-sided subclavian central venous catheter. End-stage renal disease. COMPARISON: None. TECHNIQUE: Jacobo scale, color flow, Doppler imaging and spectral waveform analysis performed of the left and righ t upper extremity venous system. FINDINGS: RIGHT UPPER EXTREMITY BRACHIAL ARTERY: 5.3 mm RADIAL ARTERY: 2.4 mm ULNAR ARTERY: 2.4 mm CEPHALIC VEIN Proximal Humerus: 4.2 mm Clot in mid and distal humerus, antecubital fossa, and proximal forearm. Mid Forearm: 2.2 mm Distal Forearm: 2,1 mm BASILIC VEIN Proximal Humerus: 7.0 mm Mid Humerus: 6.2 mm Distal Humerus: 5.9 mm Antecubital Fossa: 6.3 mm Proximal Forearm: 2.8 mm Mid Forearm: 1.2 mm Distal Forearm: 0.7 mm There is echogenic focus in the right internal jugular vein suggesting a chronic clot. LEFT UPPER EXTREMITY BRACHIAL ARTERY: 4.6 mm RADIAL ARTERY: 2.4 mm ULNAR ARTERY: 2.6 mm CEPHALIC VEIN Proximal Humerus: 3.1 mm Mid Humerus: 2.9 mm Distal Humerus: 3.2 mm Antecubital Fossa: 3.8 mm Proximal Forearm: 1.7 mm Mid Forearm: 1.8 mm Distal Forearm: 1.6 mm BASILIC VEIN Proximal Humerus: 2.0 mm Mid Humerus: 2.4 mm Distal Humerus: 3.1 mm Antecubital Fossa: 1.5 mm Proximal Forearm: 0.6 mm Mid Forearm: 1.3 mm Distal Forearm: 0.6 mm IMPRESSION: Clot involving the right upper extremity and right internal jugular vein. Echogenic material in the r ight internal jugular vein suggests a chronic thrombus. POS: [facility]
--- NOTE | 2017-04-13 14:53 | PRG ---
DATE OF SERVICE: 04/13/2017 SERVICE: Pulmonary Medicine. INTERVAL HISTORY: The patient is doing great from cardiovascular and respiratory standpoint. He is breathing comfortably. He no longer has any confusion. He has been weaned down to room air and he h as no specific complaints. PHYSICAL EXAMINATION: VITAL SIGNS: Afebrile, pulse 94, blood pressure 162/82, respirations 16, saturation 93% on room air. GENERAL: The patient is awake, alert, no apparent distress. LUNGS: Excellent air entry. There is no prolonged expiratory phase or wheezing. HEART: Normal rate, regular. ABDOMEN: Soft, nontender, nondistended. Bowel sounds positive. MUSCULOSKELETAL: No cyanosis or clubbing. There is trace pitting in the bilateral lower extremities . NEUROLOGIC: Grossly nonfocal. LABORATORY DATA: WBC 6.1, hemoglobin 9.9, platelets 212,000. Creatinine 10.54, BUN 52 and trending upward. Potassium 5.2, sodium 132. Hepatitis B antigen is positive. Respiratory virus panel is unr emarkable. ASSESSMENT: 1. Acute hypoxic respiratory failure, resolved. 2. End-stage renal disease. 3. Medical noncompliance/inability to transport to and from dialysis. 4. Non-ST elevation myocardial infarction secondary to demand. 5. Hepatitis B. DISCUSSION AND PLAN: The patient is doing fantastic from a respiratory standpoint. He has no furthe r requirements for inpatient Pulmonary or Critical Care opinion. I will sign off at this time. Plea se call if any additional questions or concerns.
--- NOTE | 2017-04-13 20:20 | PDOC.PN ---
- Subjective Encounter Start Date: 04/13/17 Encounter Start Time: 11:30 Patient seen and examined. No new complaints. No overnight events - Objective Resuscitation Status: Resuscitation Status FULL:Full Resuscitation MAR Reviewed: Yes Vital Signs & Weight: Vital Signs (12 hours) Pulse Pulse Pulse Resp BP BP Pulse Ox 04/13/17 19:03 74 16 94 L 04/13/17 12:02 82 92 162/82 H 178/82 H 04/13/17 11:14 94 16 92 L Pulse Ox Pulse Ox 04/13/17 19:03 04/13/17 12:02 95 93 L 04/13/17 11:14 Weight Weight 227 lb 8 oz I&O: 04/12/17 04/13/17 04/14/17 06:59 06:59 06:59 Intake Total 360 Output Total 4000 0 Balance -3640 0 Result Diagrams: 04/14/17 04:24 04/14/17 14:18 Additional Labs: Accuchecks 04/13/17 04/13/17 04/12/17 18:03 11:50 21:00 POC Glucose 123 H 168 H 203 H EKG Reviewed by me: Yes (Tele SR) Phys Exam - Physical Examination Constitutional: NAD Respiratory: no wheezing, no rhonchi Cardiovascular: RRR, no rub Gastrointestinal: soft, non-tender, positive bowel sounds Musculoskeletal: edema present (improving) Dx/Plan - Plan DVT proph w/SCDs IMPRESSION: 1. Life-threatening hyperkalemia secondary to missed hemodialysis with Volume overload 2. Metabolic acidosis 3. End-stage renal disease, on hemodialysis Thursday, , and Thursday. 4. Generalized weakness with somnolence, probably secondary to #1. 5. Diabetes mellitus, type 2. 6. Chronic anemia secondary to renal insufficiency. 7. Elevated troponin due to demand ischemia/volume overload 8. Acute hypoxic respiratory failure secondary to volume overload. 9. Hyperlipidemia. 10. History of reactive airway disease. PLAN: * Dialysis per Nephro * Change diet to Renal * Resume Amlodipine * DC SQ Heparin - Patient ambulating * Cont sliding scale * Counselled on compliance with dialysis * Surg following for PD catheter/HD access Review of Systems - Review of Systems Respiratory: negative: Cough, Dry, Shortness of Breath, Hemoptysis, SOB with Excertion, Pleuritic Pain, Sputum, Wheezing Cardiovascular: negative: chest pain, palpitations, orthopnea, paroxysmal nocturnal dyspnea, edema, light headedness Gastrointestinal: negative: Nausea, Vomiting, Abdominal Pain, Diarrhea, Constipation, Melena, Hematochezia - Medications/Allergies Allergies/Adverse Reactions: Allergies Allergy/AdvReac Type Severity Reaction Status Date / Time No Known Drug Allergies Allergy Verified 04/11/17 20:15 Medications: Current Medications Albuterol/Ipratropium (Duoneb) 3 ml NEB [id number] [facility] Last Admin: 04/13/17 19:03 Dose: 3 ml Albuterol/Ipratropium (Duoneb) 3 ml NEB [id number] PRN PRN Reason: SOB &/or Wheezing Amlodipine Besylate (Norvasc) 5 mg PO DAILY [facility] Aspirin (Aspirin) 325 mg PO DAILY [facility] Last Admin: 04/13/17 09:06 Dose: 325 mg Calcitriol (Rocaltrol) 0.5 mcg PO DAILY [facility] Cefazolin Sodium (Ancef) 2 gm SLOW IVP WILLCALL [facility] Clonidine (Catapres) 0.1 mg PO Q4H PRN PRN Reason: Systolic BP > 180 Dextrose/Water (Dextrose 50%) 25 gm SLOW IVP PRN PRN PRN Reason: Hypoglycemia Docusate Sodium (Colace) 100 mg PO BID [facility] Last Admin: 04/13/17 09:06 Dose: Not Given Epoetin Graham (Procrit) 7,500 units SC Q7D [facility] Last Admin: 04/12/17 16:29 Dose: 7,500 units Gabapentin (Neurontin) 300 mg PO [facility] Glucagon (Glucagon) 1 mg IM PRN PRN PRN Reason: Hypoglycemia Hydralazine HCl (Apresoline) 10 mg SLOW IVP Q4H PRN PRN Reason: SBP Greater Than 180 Dextrose/Water (D5w) 1,000 mls @ 0 mls/hr IV .Q0M PRN; As Directed PRN Reason: Hypoglycemia Insulin Human Regular (Humulin R) 0 units SC .MILD SLIDING SCALE PRN PRN Reason: Mild Correctional Scale Insulin Human Regular (Humulin R) 0 units SC .BEDTIME SLIDING SC PRN PRN Reason: Bedtime Correctional Scale Nitroglycerin (Nitrostat) 0.4 mg PO Q5MIN PRN PRN Reason: Chest Pain Nitroglycerin (Nitro-Bid 2% Ointment) 0.5 inch TOP Q6HR [facility] Last Admin: 04/13/17 18:42 Dose: Not Given Ondansetron HCl (Zofran Odt) 4 mg PO Q6H PRN PRN Reason: Nausea/Vomiting Ondansetron HCl (Zofran) 4 mg IVP Q6H PRN PRN Reason: Nausea/Vomiting Senna (Senokot) 2 tab PO HSPRN PRN PRN Reason: Constipation Sevelamer Carbonate (Renvela) 1,600 mg PO TID-WM [facility] Last Admin: 04/13/17 18:41 Dose: 1,600 mg Sodium Chloride (Flush - Normal Saline) 10 ml IVF Q12HR [facility] Last Admin: 04/13/17 09:50 Dose: 10 ml Sodium Chloride (Flush - Normal Saline) 10 ml IVF PRN PRN PRN Reason: Saline Flush Vitamin B Complex/Vit C/Folic Acid (Nephro-Florence Tablet) 1 tab PO DAILY [facility]
[2017-04-14 04:40] LABS: #Eosinphils 0.2 thou/uL (0.0-0.7); #Lymphocytes 0.8 thou/uL (1.20-3.40); #Monocytes 0.5 thou/uL (0.11-0.59); #Neutrophils 2.7 thou/uL (1.40-6.50); %Basophils 0.9 % (0.0-1.0); %Eosinophils 5.1 % (0.0-10.0); %Lymphocytes 18.1 % (21.0-51.0); %Monocytes 11.3 % (0.0-10.0); %Neutrophils 64.7 % (42.0-75.0); Hemoglobin 9.6 g/dL (14.0-18.0); Mean Corpuscular HGB CONC 32.2 g/dL (32.0-36.0); Mean Corpuscular Hemoglobin 31.1 pg (27.0-31.0); Mean Corpuscular Volume 96.7 fl (80.0-94.0); Mean Platelet Volume 6.9 fL (7.4-10.4); Platelet Count 210 thou/uL (130-400); RBC Distribution Width 17.6 % (11.5-14.5); Red Blood Cell (RBC) Count 3.08 mill/uL (4.70-6.10); White Blood Cell (WBC) Count 4.2 thou/uL (4.8-10.8)
[2017-04-14 05:09] LABS: Anion Gap 19 mmol/L (10-20); BUN (Urea Nitrogen) 58 mg/dL (8.4-25.7); Calc. Creatinine Clearance 9 mL/min (70-130); Calcium 9.1 mg/dL (7.8-10.44); Carbon Dioxide 24 mmol/L (23-31); Chloride 93 mmol/L (98-107); Estimated GFR-MDRD 4; Glucose 96 mg/dL (80-115); Potassium 5.5 mmol/L (3.5-5.1); Sodium 130 mmol/L (136-145)
[2017-04-14] MEDS: Nitroglycerin 2% Ointment 1 INCH/1 GM Packet TOP SCH (05:52)
--- NOTE | 2017-04-14 08:45 | PRG ---
DATE OF SERVICE: 04/14/2017. SUBJECTIVE: Mr. Monge is a 61-year-old black male with ESRD and currently undergoing hemodialysis. I am at the bedside supervising his dialysis. He was admitted for CHF and severe hyperkalemia due t o a missed dialysis of 1 week. I have consulted Surgery, Dr. Singh, for placement of PD catheter as well as AV fistula. He prefers to go back to his PD regimen. Please note that in the past, his PD catheter was removed due to peritonitis that was refractory with antibiotics. No new complaints toda y, no chest pain or shortness of breath. PHYSICAL EXAMINATION: VITAL SIGNS: Blood pressure 161/84, heart rate 77, respiratory rate 14, temperature 98.2, pulse ox 9 4%. GENERAL: Noted to be awake, alert, comfortable, not in distress. SKIN: Adequate turgor. HEENT: Slightly pale conjunctivae, anicteric sclerae. NECK: No neck mass, no carotid bruits. No JVD. CHEST: No deformities. LUNGS: Clear breath sounds, no wheezing, no crackles. HEART: Normal sinus rhythm. No murmur, no gallops, no rubs. ABDOMEN: Globular, soft, nontender, no masses. EXTREMITIES: Positive for edema, but no deformities. MEDICATIONS: 04/14/2017 - Reviewed. LABORATORY: 04/14/2017 - White count 4.2, hemoglobin 9.6, hematocrit 29.8, platelet count 210,000. ASSESSMENT AND PLAN: 1. End-stage renal disease, stable. Continue current 3 times a week hemodialysis. Again, fluid rem oval as tolerated. Attempting between 3 and 4 liters of fluid removal. The patient is scheduled for PD catheter placement as well as AV fistula. AV fistula is for backup dialysis access. 2. Hyperkalemia, resolved. 3. Congestive heart failure, resolved with dialysis. Recheck base met and CBC in a.m.
[2017-04-14] MEDS ORDERED: Amlodipine 5 MG TAB PO SCH (09:00)
[2017-04-14] MEDS ORDERED: Heparin 10,000 UNITS/ 10 ML VIAL ONE ×3 (09:00→14:11)
[2017-04-14] MEDS: Sevelamer Carbonate 800 MG TAB PO SCH ×3 (09:25→19:59)
[2017-04-14] MEDS: Aspirin 81 mg Enteric Coated Tablet PO SCH (10:29)
[2017-04-14] MEDS: Folic Acid/Vit B Comp W-C PO SCH (10:30)
[2017-04-14] MEDS: Docusate 100 MG CAP PO SCH ×2 (10:30→21:32)
[2017-04-14] MEDS: Calcitriol 0.25 MCG CAP PO SCH (10:30)
[2017-04-14] MEDS: Amlodipine 5 MG TAB PO SCH ×2 (12:47→21:32)
[2017-04-14] MEDS ORDERED: Heparin 5,000 UNITS/ML VIAL ONE (13:53)
[2017-04-14] MEDS ORDERED: Bupivacaine HCl 0.5%/Epinephrine 1:200,000/PF 30 ml Vial ONE (13:53)
[2017-04-14] MEDS ORDERED: Heparin 10,000 UNITS/1 ML VIAL ONE (13:55)
[2017-04-14] MEDS ORDERED: Protamine Sulfate 50 MG/5 ML VIAL ONE (13:55)
[2017-04-14] MEDS ORDERED: Glycopyrrolate 0.2 MG/ML 5 ML SYRINGE ONE (14:01)
[2017-04-14] MEDS ORDERED: Lidocaine 1% PF 5 ML VIAL ONE (14:01)
[2017-04-14] MEDS ORDERED: Ondansetron HCl/PF 4 MG/2 ML Vial ONE ×2 (14:01→14:20)
[2017-04-14] MEDS ORDERED: PROPOFOL 200 MG/20 ML VIAL ONE (14:01)
[2017-04-14] MEDS ORDERED: Naloxone HCl 0.4 mg/ml Vial ONE ×2 (14:01→19:41)
[2017-04-14] MEDS ORDERED: Fentanyl 250 MCG/5 ML VIAL ONE (14:20)
[2017-04-14] MEDS ORDERED: Famotidine/PF 20 mg/2ml Vial ONE (14:20)
[2017-04-14] MEDS ORDERED: CEFAZOLIN/Water 2 GM/20 ML SYRINGE ONE (14:27)
[2017-04-14] MEDS ORDERED: Bupivacaine/Epinephrine 0.25% 30 ML VIAL ONE (14:28)
[2017-04-14 14:45] LABS: Anion Gap 10 mmol/L (10-20); Carbon Dioxide 31 mmol/L (23-31); Chloride 96 mmol/L (98-107); Potassium 4.3 mmol/L (3.5-5.1); Sodium 133 mmol/L (136-145)
--- NOTE | 2017-04-14 15:56 | PDOC.PN ---
- Subjective Encounter Start Date: 04/14/17 Encounter Start Time: 10:00 Patient seen and examined during dialysis. No new complaints. No overnight events - Objective Resuscitation Status: Resuscitation Status FULL:Full Resuscitation MAR Reviewed: Yes Vital Signs & Weight: Weight Weight 227 lb 8 oz I&O: 04/13/17 04/14/17 04/15/17 06:59 06:59 06:59 Output Total 0 Balance 0 Result Diagrams: 04/15/17 04:30 04/15/17 04:30 Additional Labs: Accuchecks 04/14/17 04/14/17 04/14/17 10:16 04:10 00:11 POC Glucose 91 100 157 H 04/13/17 04/13/17 20:18 18:03 POC Glucose 207 H 123 H EKG Reviewed by me: Yes (Tele SR) Phys Exam - Physical Examination Constitutional: NAD Respiratory: no wheezing, no rhonchi Cardiovascular: RRR, no rub Gastrointestinal: soft, non-tender, positive bowel sounds Musculoskeletal: no edema Neurological: moves all 4 limbs Dx/Plan - Plan DVT proph w/SCDs IMPRESSION: 1. Life-threatening hyperkalemia secondary to missed hemodialysis with Volume overload. improving 2. Metabolic acidosis. improving 3. End-stage renal disease, on hemodialysis Thursday, , and Thursday. 4. Generalized weakness with somnolence, probably secondary to #1. improving 5. Diabetes mellitus, type 2. on sliding scale 6. Chronic anemia secondary to renal insufficiency. 7. Elevated troponin due to demand ischemia (Pt did not have NSTEMI) 8. Acute hypoxic respiratory failure secondary to volume overload/Acute on Chronic diastolic heart failure 9. Hyperlipidemia. 10. History of reactive airway disease. PLAN: * PD catheter/HD access today * Dialysis per Nephro * DC NTG patch * Add Imdur * Cont current meds as below * Cont insulin sliding scale Review of Systems - Review of Systems Respiratory: negative: Cough, Dry, Shortness of Breath, Hemoptysis, SOB with Excertion, Pleuritic Pain, Sputum, Wheezing Cardiovascular: negative: chest pain, palpitations, orthopnea, paroxysmal nocturnal dyspnea, edema, light headedness Gastrointestinal: negative: Nausea, Vomiting, Abdominal Pain, Diarrhea, Constipation, Melena, Hematochezia - Medications/Allergies Allergies/Adverse Reactions: Allergies Allergy/AdvReac Type Severity Reaction Status Date / Time No Known Drug Allergies Allergy Verified 04/11/17 20:15 Medications: Current Medications Albuterol/Ipratropium (Duoneb) 3 ml NEB [id number] [facility] Last Admin: 04/14/17 13:48 Dose: Not Given Albuterol/Ipratropium (Duoneb) 3 ml NEB [id number] PRN PRN Reason: SOB &/or Wheezing Amlodipine Besylate (Norvasc) 5 mg PO BID [facility] Last Admin: 04/14/17 12:47 Dose: Not Given Aspirin (Ecotrin) 81 mg PO DAILY [facility] Last Admin: 04/14/17 10:29 Dose: Not Given Calcitriol (Rocaltrol) 0.5 mcg PO DAILY [facility] Last Admin: 04/14/17 10:30 Dose: Not Given Cefazolin Sodium (Ancef) 2 gm SLOW IVP WILLCALL [facility] Clonidine (Catapres) 0.1 mg PO Q4H PRN PRN Reason: Systolic BP > 180 Dextrose/Water (Dextrose 50%) 25 gm SLOW IVP PRN PRN PRN Reason: Hypoglycemia Docusate Sodium (Colace) 100 mg PO BID [facility] Last Admin: 04/14/17 10:30 Dose: Not Given Epoetin Graham (Procrit) 7,500 units SC Q7D [facility] Last Admin: 04/12/17 16:29 Dose: 7,500 units Gabapentin (Neurontin) 300 mg PO MWF [facility] Glucagon (Glucagon) 1 mg IM PRN PRN PRN Reason: Hypoglycemia Hydralazine HCl (Apresoline) 10 mg SLOW IVP Q4H PRN PRN Reason: SBP Greater Than 180 Dextrose/Water (D5w) 1,000 mls @ 0 mls/hr IV .Q0M PRN; As Directed PRN Reason: Hypoglycemia Insulin Human Regular (Humulin R) 0 units SC .MILD SLIDING SCALE PRN PRN Reason: Mild Correctional Scale Insulin Human Regular (Humulin R) 0 units SC .BEDTIME SLIDING SC PRN PRN Reason: Bedtime Correctional Scale Nitroglycerin (Nitrostat) 0.4 mg PO Q5MIN PRN PRN Reason: Chest Pain Ondansetron HCl (Zofran Odt) 4 mg PO Q6H PRN PRN Reason: Nausea/Vomiting Ondansetron HCl (Zofran) 4 mg IVP Q6H PRN PRN Reason: Nausea/Vomiting Senna (Senokot) 2 tab PO HSPRN PRN PRN Reason: Constipation Sevelamer Carbonate (Renvela) 1,600 mg PO TID-WM [facility] Last Admin: 04/14/17 12:47 Dose: Not Given Sodium Chloride (Flush - Normal Saline) 10 ml IVF Q12HR [facility] Last Admin: 04/14/17 10:30 Dose: Not Given Sodium Chloride (Flush - Normal Saline) 10 ml IVF PRN PRN PRN Reason: Saline Flush Vitamin B Complex/Vit C/Folic Acid (Nephro-Florence Tablet) 1 tab PO DAILY [facility] Last Admin: 04/14/17 10:30 Dose: Not Given
[2017-04-14] MEDS ORDERED: Ondansetron HCl/PF 4 MG/2 ML Vial IVP PRN (16:52)
[2017-04-14] MEDS ORDERED: Promethazine HCl 25 MG/ML VIAL SLOW IVP PRN (16:52)
[2017-04-14] MEDS ORDERED: Promethazine HCl 25 MG/ML VIAL IM PRN (16:52)
--- NOTE | 2017-04-14 18:47 | RAD ---
CHEST ONE VIEW 04/14/17 HISTORY: Central line. COMPARISON: Chest one view 04/12/17. FINDINGS: The left internal jugular central venous catheter is in place. Tip at the inferior SVC. Dialysis cath eter is similar. Lungs are hypoinflated. Mild volume overload. Marked cardiomegaly. Left basilar air space opacity. IMPRESSION: New left internal jugular central venous catheter tip at the cavoatrial junction. POS: [facility]
[2017-04-14] MEDS ORDERED: Acetaminophen 500 MG TAB PO PRN (20:46)
[2017-04-14] MEDS: traMADol HCl 50 MG TAB PO PRN (23:47)
[2017-04-15] MEDS: traMADol HCl 50 MG TAB PO PRN ×3 (02:10→20:37)
[2017-04-15 04:42] LABS: #Lymphocytes 0.4 thou/uL (1.20-3.40); #Monocytes 0.4 thou/uL (0.11-0.59); #Neutrophils 7.9 thou/uL (1.40-6.50); %Basophils 0.2 % (0.0-1.0); %Eosinophils 0.1 % (0.0-10.0); %Lymphocytes 4.8 % (21.0-51.0); %Monocytes 4.7 % (0.0-10.0); %Neutrophils 90.2 % (42.0-75.0); Hemoglobin 10.1 g/dL (14.0-18.0); Mean Corpuscular HGB CONC 31.8 g/dL (32.0-36.0); Mean Corpuscular Hemoglobin 31.4 pg (27.0-31.0); Mean Corpuscular Volume 98.5 fl (80.0-94.0); Mean Platelet Volume 6.9 fL (7.4-10.4); Platelet Count 220 thou/uL (130-400); RBC Distribution Width 17.5 % (11.5-14.5); Red Blood Cell (RBC) Count 3.23 mill/uL (4.70-6.10); White Blood Cell (WBC) Count 8.8 thou/uL (4.8-10.8)
[2017-04-15 04:53] LABS: Anion Gap 14 mmol/L (10-20); BUN (Urea Nitrogen) 24 mg/dL (8.4-25.7); Calc. Creatinine Clearance 15 mL/min (70-130); Calcium 8.8 mg/dL (7.8-10.44); Carbon Dioxide 29 mmol/L (23-31); Chloride 96 mmol/L (98-107); Estimated GFR-MDRD 8; Glucose 113 mg/dL (80-115); Potassium 6.2 mmol/L (3.5-5.1); Sodium 133 mmol/L (136-145)
--- NOTE | 2017-04-15 06:39 | OP ---
DATE OF PROCEDURE: 04/14/2017 PREOPERATIVE DIAGNOSES: New IV access. New left arm fistula, thrombosed iatrogenic right antecubita l vein, and cephalic vein secondary to nursing IV access (emergency room in [place] and left in place this hospitalization). PROCEDURE: Left IJ central line triple lumen, ultrasound used. SURGEON: Dr. Guero Singh. ANESTHESIA: General. PROCEDURE IN DETAIL: Determination of his operation, patient did not have an IV access, a small IV i n his right thumb had infiltrated and was not functional. He has a new fistula in his left arm and t here has been previous iatrogenic thrombosis antecubital vein, cephalic vein, burning bridges for fut ure dialysis access in the right upper arm as noted above. PROCEDURE: Left IJ central line triple lumen. SURGEON: Dr. Guero Singh. ANESTHESIA: General. Ultrasound guidance used. PROCEDURE IN DETAIL: At the patient's bedside in the operating room under general anesthesia, neck a nd chest were prepped with ChloraPrep, draped in routine fashion. Ultrasound guidance was used to ca nnulate the left internal jugular vein with trocar catheter and J-wire threaded. Trocar catheter rem julius. Skin incised and enlarged sharply. Seldinger technique used to place triple lumen catheter se curing it with 3-0 silk suture and Biopatch sterile dressing applied. Each port aspirated blood and flushed with saline solution. Patient tolerated the procedure well.
--- NOTE | 2017-04-15 06:57 | OP ---
DATE OF OPERATION: 04/14/2017 PREOPERATIVE DIAGNOSES: End-stage renal disease, hemodialysis catheter dependent. Thrombosed left s eminal fistula revised x3 with a segmented graft. Iatrogenic thrombosis, right antecubital vein, cep halic vein secondary to antecubital IV placed in [place] and left in place. This hospitalization terrell ires peritoneal dialysis, incisional hernia from prior peritoneal dialysis catheter placement, Muslim . PROCEDURE: Laparoscopic [address] mesh repair of supraumbilical incisional herni a, 3 cm in diameter with primary fascial closure. Laparoscopic omentopexy, laparoscopic peritoneal d ialysis catheter, double cuffed pigtail. Left arm primary AV fistula, perforating branch antecubital vein to the proximal radial artery outflow basilic and cephalic vein calibrated to 4 mm coronary dil ator without obstruction. Retrograde antecubital vein preserved. Note, basilic vein outflow left intact due to the fact the patient will be doing peritoneal dialysis and he has adequate maturation time. SURGEON: Guero Singh M.D. ANESTHESIA: General. Local 0.5% Marcaine with epinephrine 30 mL, mixed with 2% Xylocaine 10 mL, 0.2 5% Marcaine with epinephrine 30 mL. PROCEDURE IN DETAIL: The patient taken to the operating room where under general anesthesia, abdomen was clipped of hair as well as the right arm as well as the left arm and both were prepared with chl oraprep, draped in routine fashion. Bilateral subcostal far lateral incision made pneumoperitoneum t o 15 mmHg obtained with the Veress needle placing it with a 5 port laparoscope inserted. There was a n incisional hernia just above the umbilicus from the patient's previous open peritoneal dialysis cat heter placement in Muslim. A 11 mm port placed in the left lateral, far lateral mid abdominal area u nder laparoscopic visualization. The hernia sac and the incisional hernia defect was taken down with the LigaSure. Fascia approximated with 2 interrupted sutures of 0 Ethibond suture placed transabdom inal. Once this was closed by a decrease in pneumoperitoneum to 9 mmHg. Ventralight 11 cm round mes h was then placed fastening with tackers, placing it tightly. Transabdominal wall fixation sutures u sing the GraNee needle and 0 Ethibond suture used to place and sutured in four quadrants. Once this was accomplished, attention was then turned to the peritoneal dialysis catheter. A left periumbilica l incision made and an 8 mm port placed and directed caudally and the rectus sheath visualized laparo scopically staying clear of the mesh penetrating the abdominal wall dependently and placing a double cuffed pigtail peritoneal dialysis catheter in the abdominal cavity, placing the internal cuff in the rectus sheath and removing the port. The catheter was held in place with a laparoscopic grasper as a Juliet dissector was placed through a planned exit site and more dependent left lower quadrant and directed up to the counter incision, grasping the catheter and pulling it through its new tunnel bill wendie an external cuff beneath the skin exit site. Catheter pulled partly and then flushed with hepari nized saline solution 1000 units heparin per mL 10 mLs and the catheter capped. All omentopexy then undertaken with 0 Ethibond suture tacking it to the upper abdominal wall and laparoscopic visualizati on. Abdominal cavity irrigated, good hemostasis noted. Peritoneal dialysis catheter had a good lie, and the incisional hernia was well covered with mesh. Abdominal cavity irrigated and irrigant evacu ated. Good hemostasis noted. All pneumoperitoneum evacuated, all instruments removed, and all skin incisions approximated with interrupted subdermal 4-0 Monocryl and DermaGlue applied and sterile dres sing placed around the peritoneal dialysis catheter. At this point, the left upper extremity was tended to, and an incision was made longitudinally in the proximal volar forearm below the antecubital fossa, and carried down the skin and subcutaneous tissu e, identifying a large antecubital vein. It was dissected free. It was dissected free up to the cep halic vein, which was large in the upper arm. There was a bifurcation towards the medial arm towards the basilic vein and off this more medial basilic vein branch was a perforating branch was very larg e and was dissected free down to the deep fascia, dividing branch between 4-0 silk ties and clips. T he vein was divided, spatulated over a branch point and interrogated with coronary dilators, passing coronary dilators from 1.5 to 4 mm coronary dilator out the cephalic vein outflow. The cephalic vein with outflow was larger. The vein was spatulated and a proximal artery dissected free. The patient had been given 6000 units heparin intravenously. After adequate circulation time, the proximal noris ry was clamped proximally and distally vascular clamps. Longitudinal arteriotomy made sharply for a 2.5 cm anastomosis and end perforating branch antecubital vein to the side proximal artery anastomosi s created with continuous suture of 6-0 Prolene. After completing anastomosis, vascular clamps were released and there was excellent flow in the fistula interrogated by Doppler and cephalic vein outflo w. Then, decision was then at that point whether I should occlude the basilic vein outflow, but as t he patient would be do peritoneal dialysis for some time. Decision was made to leave the basilic vei n outflow intact. Good hemostasis noted. Patient given protamine 50 mg intravenous by Anesthesia. Surgicel placed about the wound. About the anastomosis, subcutaneous tissues approximately 3-0 Monoc ryl, skin with subdermal 4-0 Monocryl and DermaGlue applied. The patient tolerated the procedure lata travis
[2017-04-15] MEDS ORDERED: Vancomycin HCl 1 GM in Premix Bag 1 BAG IVPB SCH ×2 (07:45→08:00)
[2017-04-15] MEDS ORDERED: Vancomycin HCl 500 MG in Sodium Chloride 0.9% 100 ML IVPB SCH (08:00)
[2017-04-15] MEDS ORDERED: HOLD VANCOMYCIN FOR LEVEL >20 FS SCH (08:00)
[2017-04-15] MEDS ORDERED: Vancomycin HCl 750 MG in Sodium Chloride 0.9% 250 ML 250 ML IVPB SCH (08:00)
[2017-04-15] MEDS ORDERED: Vancomycin HCl 1.25 GM in Sodium Chloride 0.9% 250 ML 250 ML IVPB SCH (08:00)
[2017-04-15] MEDS: Sevelamer Carbonate 800 MG TAB PO SCH ×3 (08:04→17:51)
[2017-04-15] MEDS: Amlodipine 5 MG TAB PO SCH ×2 (08:05→20:38)
[2017-04-15] MEDS: Aspirin 81 mg Enteric Coated Tablet PO SCH (08:05)
[2017-04-15] MEDS: Docusate 100 MG CAP PO SCH ×2 (08:05→20:38)
[2017-04-15] MEDS: Folic Acid/Vit B Comp W-C PO SCH (08:05)
[2017-04-15] MEDS: Calcitriol 0.25 MCG CAP PO SCH (08:05)
[2017-04-15] MEDS: Gabapentin 300 MG CAP PO SCH (08:06)
[2017-04-15] MEDS ORDERED: Activase 2 MG VIAL CATH SCH (08:45)
--- NOTE | 2017-04-15 08:49 | PRG ---
DATE OF SERVICE: 04/15/2017 SUBJECTIVE: Mr. Mogne is a 61-year-old black male with ESRD and being followed by the [facility] for his maintenance hemodialysis. He underwent surgery yesterday. A new left arm, left central tay e lumen was placed yesterday. In addition, he had a code green yesterday. He is currently undergoin g dialysis today. Please note that with yesterday's surgery a PD catheter was said to have been plac ed and he had an AV fistula placed also. He is currently being dialyzed today - extra - due to the potassium 6.2. However, some difficulty wi th the current dialysis catheter. There is a decreased blood flow. My plan is to place at least 1 h our and to do at least a 2-hour hemodialysis using 1-0 potassium bath. We will then place him on his regular hemodialysis in a.m. PHYSICAL EXAMINATION: VITAL SIGNS: Blood pressure is 150/69, heart rate 80, respiratory rate 18, temperature 98.4, pulse o x 100%. GENERAL: Noted to be awake, alert, comfortable, not in distress. SKIN: Adequate turgor. HEENT: He has pinkish conjunctivae, anicteric sclerae. NECK: No neck mass, no carotid bruits, no JVD. CHEST: No deformities. LUNGS: Clear breath sounds. No wheezing, no crackles. HEART: Normal sinus rhythm. No murmur, no gallops or rubs. ABDOMEN: Globular, soft, nontender, no masses. EXTREMITIES: No edema, no deformities. Please note he has a PD catheter. MEDICATIONS: 04/15/2017 - Reviewed. LABORATORY: 04/15/2017 - White count 8.8, hemoglobin 10.1. Sodium 133, potassium 6.2, chloride 96, carbon dioxide 29, BUN 24, creatinine 7.34, glucose 113, calcium 8.8. ASSESSMENT AND PLAN: 1. End-stage renal disease, stable. Undergoing 2 hour hemodialysis. We will apply Activase due to the decreased blood flow with his dialysis catheter. We are using 1-0 potassium bath for his hyperka lemia: 2. Positive blood culture x1, gram positive cocci done 04/14/2017. The second culture was negative. My plan is to repeat another blood culture x2 with this patient and depending what the finding is, we will empirically treat with IV antibiotics. It is possible that 1 positive culture may have been a contaminant. Overall, I agree with current management.
[2017-04-15] MEDS ORDERED: Heparin 10,000 UNITS/ 10 ML VIAL ONE (10:00)
--- NOTE | 2017-04-15 10:02 | PQF ---
DATE: 04-15-17 ATTN: DR. NILDA MILLER Please exercise your independent, professional judgment in responding to the clarification form. Clinical indicators are provided on the bottom of this form for your review Please check appropriate box(s): HEART FAILURE: A. TYPE: [ ] Systolic / HFrEF [ ] Diastolic / HFpEF [ ] Combined Systolic / Diastolic B. ACUITY [ ] Acute [ ] Acute on Chronic [ ] Chronic [ ] Other diagnosis [ ] Unable to determine In addition, please specify: Present on Admission (POA): [ ] Yes [ ] No [ ] Unable to determine For continuity of documentation, please document condition throughout progress notes and discharge summary. Thank You. CLINICAL INDICATORS - SIGNS / SYMPTOMS / LABS ER DIAGNOSIS: HYPERKALEMIA, ELEVATED TROPONIN, FLUID OVERLOAD, RESPIRATORY FAILURE H&P: LIFE-THREATENING HYPERKALEMIA 2/2 TO MISSED HD, ACUTE HYPOXIA RESPIRATORY FAILURE 2/2 TO VOLUME OVERLOAD CONSULT NOTE DR. COLON 04-12-17: THE REPORT WAS HE HAD A POTASSIUM GREATER THAN 8. HE WAS ALSO IN CHF. CONGESTIVE HEART FAILURE, CLINICALLY IMPROVED WITH DIALYSIS. CONTINUE FLUID REMOVAL WITH DIALYSIS. PN 04-14-17: LIFE-THREATENING HYPERKALEMIA 2/2 TO MISSED HD WITH VOLUME OVERLOAD. BNP: 04-11-17: 715.5 RISKS: H&P: SEVERE HYPERKALEMIA, HYPERLIPIDEMIA, HTN, FORMER SMOKER, ESRD TREATMENTS: CARDIAC MONITORING RESPIRATORY ASSESSMENT BIPAP, O2 USE (This form is maintained as a part of the permanent medical record) 2014 [employer] All Rights Reserved [email or web address] Office: [phone] JAS
--- NOTE | 2017-04-15 10:20 | PQF ---
DATE: 04-15-17 ATTN: DR. NILDA MILLER Please exercise your independent, professional judgment in responding to the clarification form. Clinical indicators are provided on the bottom of this form for your review Please check appropriate box(s): [ ] NSTEMI [ ] AMI Type II [ ] Demand Ischemia [ ] Other diagnosis [ ] Unable to determine In addition, please specify: Present on Admission (POA): [ ] Yes [ ] No [ ] Unable to determine CLINICAL INDICATORS - SIGNS / SYMPTOMS / LABS ER DIAGNOSIS: HYPERKALEMIA, ELEVATED TROPONIN, FLUID OVERLOAD, RESPIRATORY FAILURE PN DR. STONE 04-12-17: TROPONIN I ABOVE REFERENCE RANGE LIKELY CHRONIC DUE TO CKD OR DEMAND ISCHEMIA CONSULT NOTE DR. GARCIA 04-12-17: NON-ST ELEVATION MYOCARDIAL, SECONDARY TO DEMAND. TROPONIN: 04-11-17: 0.110, 3-18: 0.104, 3-18: 0.114 RISKS: H&P: DM 2, OBESITY, SEVERE HYPERKALEMIA, HYPERLIPIDEMIA, HTN, FORMER SMOKER, ESRD TREATMENTS:RESPIRATORY ASSESSMENT: BIPAP USE, O2 USE This form is maintained as a part of the permanent medical record) 2014 [employer] All Rights Reserved [email or web address] Office: [phone] [facility] MEDICAL CENTERNicolette
[2017-04-15] MEDS ORDERED: Vancomycin HCl 1.5 GM in Sodium Chloride 0.9% 250 ML 300 ML IVPB SCH (12:00)
--- NOTE | 2017-04-15 19:12 | PRG ---
DATE OF SERVICE: 04/15/2017 SUBJECTIVE: Mr. Monge is doing well today. OBJECTIVE: ABDOMEN: Soft and nontender. LUNGS: Clear to auscultation. EXTREMITIES: He has a good thrill and bruit over his left arm fistula site. Surgical wound looks go od. GENITOURINARY: Peritoneal dialysis catheter dressing intact in the left lower quadrant abdomen. ASSESSMENT AND PLAN: The patient is doing well status post laparoscopic incisional hernia repair, pl acement of peritoneal dialysis catheter and placement of left arm fistula. We would recommend utiliz e his left arm, exercise it and use it unrestricted. Patient should leave his left lower quadrant dr grissom over his peritoneal dialysis catheter intact and see the peritoneal dialysis nurse in 4-7 days to change the dressing, flush the catheter and change the attachments. The patient can start doing peritoneal dialysis in 3-4 weeks. He should follow up in my office in 2-3 weeks. Patient can be dis charged home at that time from my standpoint. The patient has outflow in his left arm fistula cephal ic and basilic vein, outflow is intact, noting that he would be doing peritoneal dialysis and this wo uld have plenty of time to mature.
--- NOTE | 2017-04-15 20:41 | PDOC.PN ---
- Subjective Encounter Start Date: 04/15/17 Encounter Start Time: 14:30 Patient seen and examined. No new complaints. Overnight events noted - Objective Resuscitation Status: Resuscitation Status FULL:Full Resuscitation MAR Reviewed: Yes Vital Signs & Weight: Vital Signs (12 hours) Temp Pulse Resp BP BP Pulse Ox 04/15/17 20:38 83 124/59 L 04/15/17 19:48 99.0 F 83 14 98 04/15/17 19:47 99.0 F 83 14 135/64 98 04/15/17 18:19 77 16 100 04/15/17 15:13 98.2 F 79 20 116/60 100 04/15/17 14:43 77 14 Weight Weight 228 lb 4.8 oz I&O: 04/14/17 04/15/17 04/16/17 06:59 06:59 06:59 Intake Total 420 1210 Output Total 5 3000 Balance 415 -3700 Result Diagrams: 04/16/17 05:31 04/16/17 05:31 Additional Labs: Accuchecks 04/15/17 04/15/17 04/15/17 20:19 17:03 12:42 POC Glucose 130 H 112 H 109 04/15/17 04/15/17 04/14/17 04:03 00:23 21:20 POC Glucose 124 H 123 H 109 04/14/17 19:44 POC Glucose 101 EKG Reviewed by me: Yes (Tele SR) Phys Exam - Physical Examination Constitutional: NAD Respiratory: no wheezing, no rhonchi Cardiovascular: RRR, no rub Gastrointestinal: soft, non-tender, positive bowel sounds Musculoskeletal: no edema Neurological: moves all 4 limbs Dx/Plan - Plan DVT proph w/SCDs IMPRESSION: 1. Life-threatening hyperkalemia secondary to missed hemodialysis with Volume overload. improving 2. Metabolic acidosis. improving 3. End-stage renal disease, on hemodialysis Thursday, , and Thursday. 4. Generalized weakness with somnolence, probably secondary to #1. improving 5. s/p Code green 6. Chronic anemia secondary to renal insufficiency. 7. Elevated troponin due to demand ischemia (Pt did not have NSTEMI) 8. Acute hypoxic respiratory failure secondary to volume overload/Acute on Chronic diastolic heart failure 9. 1/2 Blood culture positive for CN Staph - porbably contamination. 10. History of reactive airway disease/Diabetes mellitus, type 2. on sliding scale / SASHA on CPAP/Hyperlipidemia. PLAN: * s/p PD catheter * Dialysis per Nephro * Cont Imdur * Cont current meds as below * Cont insulin sliding scale * Add CPAP * Start Vancomycin * s/p Dialysis today * Repeat Blood culture per Nephrology Review of Systems - Review of Systems Respiratory: negative: Cough, Dry, Shortness of Breath, Hemoptysis, SOB with Excertion, Pleuritic Pain, Sputum, Wheezing Cardiovascular: negative: chest pain, palpitations, orthopnea, paroxysmal nocturnal dyspnea, edema, light headedness - Medications/Allergies Allergies/Adverse Reactions: Allergies Allergy/AdvReac Type Severity Reaction Status Date / Time No Known Drug Allergies Allergy Verified 04/11/17 20:15 Medications: Current Medications Acetaminophen (Tylenol) 1,000 mg PO Q6H PRN PRN Reason: Moderate to Severe Pain (6-10) Albuterol/Ipratropium (Duoneb) 3 ml NEB V1DS-FR COUNTS INCLUDE 234 BEDS AT THE [facility] Last Admin: 04/15/17 18:19 Dose: 3 ml Albuterol/Ipratropium (Duoneb) 3 ml NEB [id number] PRN PRN Reason: SOB &/or Wheezing Amlodipine Besylate (Norvasc) 5 mg PO BID COUNTS INCLUDE 234 BEDS AT THE [facility] Last Admin: 04/15/17 20:38 Dose: 5 mg Aspirin (Ecotrin) 81 mg PO DAILY COUNTS INCLUDE 234 BEDS AT THE [facility] Last Admin: 04/15/17 08:05 Dose: Not Given Calcitriol (Rocaltrol) 0.5 mcg PO DAILY COUNTS INCLUDE 234 BEDS AT THE [facility] Last Admin: 04/15/17 08:05 Dose: Not Given Clonidine (Catapres) 0.1 mg PO Q4H PRN PRN Reason: Systolic BP > 180 Dextrose/Water (Dextrose 50%) 25 gm SLOW IVP PRN PRN PRN Reason: Hypoglycemia Docusate Sodium (Colace) 100 mg PO BID COUNTS INCLUDE 234 BEDS AT THE [facility] Last Admin: 04/15/17 20:38 Dose: 100 mg Epoetin Graham (Procrit) 7,500 units SC Q7D COUNTS INCLUDE 234 BEDS AT THE [facility] Last Admin: 04/12/17 16:29 Dose: 7,500 units Gabapentin (Neurontin) 300 mg PO MWF COUNTS INCLUDE 234 BEDS AT THE [facility] Last Admin: 04/15/17 08:06 Dose: Not Given Glucagon (Glucagon) 1 mg IM PRN PRN PRN Reason: Hypoglycemia Hydralazine HCl (Apresoline) 10 mg SLOW IVP Q4H PRN PRN Reason: SBP Greater Than 180 Dextrose/Water (D5w) 1,000 mls @ 0 mls/hr IV .Q0M PRN; As Directed PRN Reason: Hypoglycemia Vancomycin HCl 1.25 gm/ Sodium (Chloride) 250 mls @ 166.667 mls/hr IVPB WILLCALL COUNTS INCLUDE 234 BEDS AT THE [facility] Vancomycin HCl 1 gm/ Device 200 mls @ 200 mls/hr IVPB WILLCALL RAYMOND Vancomycin HCl 750 mg/ Sodium (Chloride) 250 mls @ 250 mls/hr IVPB WILLCALL RAYMOND Vancomycin HCl 500 mg/ Sodium (Chloride) 100 mls @ 100 mls/hr IVPB WILLCALL RAYMOND Vancomycin HCl 1.5 gm/ Sodium (Chloride) 300 mls @ 200 mls/hr IVPB 1200 RAYMOND Stop: 04/15/17 21:00 Last Admin: 04/15/17 12:28 Dose: 300 mls Insulin Human Regular (Humulin R) 0 units SC .MILD SLIDING SCALE PRN PRN Reason: Mild Correctional Scale Insulin Human Regular (Humulin R) 0 units SC .BEDTIME SLIDING SC PRN PRN Reason: Bedtime Correctional Scale Miscellaneous Medication (Pharmacy To Dose) 0 each IVPB ASDIR PRN PRN Reason: Pharmacy to Dose VANCOMYCIN Nitroglycerin (Nitrostat) 0.4 mg PO Q5MIN PRN PRN Reason: Chest Pain Hold Vancomycin For (Level >20) 0 each FS .AT DIALYSIS COUNTS INCLUDE 234 BEDS AT THE [facility] Ondansetron HCl (Zofran Odt) 4 mg PO Q6H PRN PRN Reason: Nausea/Vomiting Ondansetron HCl (Zofran) 4 mg IVP Q6H PRN PRN Reason: Nausea/Vomiting Last Admin: 04/15/17 06:21 Dose: 4 mg Senna (Senokot) 2 tab PO HSPRN PRN PRN Reason: Constipation Sevelamer Carbonate (Renvela) 1,600 mg PO [facility]ID-[facility] Last Admin: 04/15/17 17:51 Dose: 1,600 mg Sodium Chloride (Flush - Normal Saline) 10 ml IVF Q12HR COUNTS INCLUDE 234 BEDS AT THE [facility] Last Admin: 04/15/17 20:38 Dose: 10 ml Sodium Chloride (Flush - Normal Saline) 10 ml IVF PRN PRN PRN Reason: Saline Flush Tramadol HCl (Ultram) 50 mg PO Q6H PRN PRN Reason: Pain 1ST LINE Last Admin: 04/15/17 02:10 Dose: 50 mg Tramadol HCl (Ultram) 100 mg PO Q6H PRN PRN Reason: Pain 2ND LINE Last Admin: 04/15/17 20:37 Dose: 100 mg Vitamin B Complex/Vit C/Folic Acid (Nephro-[place] Tablet) 1 tab PO DAILY COUNTS INCLUDE 234 BEDS AT THE [facility] Last Admin: 04/15/17 08:05 Dose: Not Given
[2017-04-16] MEDS: traMADol HCl 50 MG TAB PO PRN (03:41)
[2017-04-16 05:38] LABS: #Eosinphils 0.1 thou/uL (0.0-0.7); #Lymphocytes 0.7 thou/uL (1.20-3.40); #Monocytes 0.7 thou/uL (0.11-0.59); #Neutrophils 5.4 thou/uL (1.40-6.50); %Basophils 0.4 % (0.0-1.0); %Eosinophils 1.1 % (0.0-10.0); %Lymphocytes 10.3 % (21.0-51.0); %Monocytes 10.1 % (0.0-10.0); %Neutrophils 78.2 % (42.0-75.0); Hemoglobin 9.2 g/dL (14.0-18.0); Mean Corpuscular HGB CONC 31.1 g/dL (32.0-36.0); Mean Corpuscular Hemoglobin 30.8 pg (27.0-31.0); Mean Corpuscular Volume 99.1 fl (80.0-94.0); Mean Platelet Volume 6.8 fL (7.4-10.4); Platelet Count 237 thou/uL (130-400); RBC Distribution Width 17.5 % (11.5-14.5); Red Blood Cell (RBC) Count 2.97 mill/uL (4.70-6.10); White Blood Cell (WBC) Count 6.9 thou/uL (4.8-10.8)
[2017-04-16 05:53] LABS: Anion Gap 14 mmol/L (10-20); BUN (Urea Nitrogen) 27 mg/dL (8.4-25.7); Calc. Creatinine Clearance 15 mL/min (70-130); Calcium 9.2 mg/dL (7.8-10.44); Carbon Dioxide 30 mmol/L (23-31); Chloride 95 mmol/L (98-107); Estimated GFR-MDRD 8; Glucose 132 mg/dL (80-115); Sodium 134 mmol/L (136-145)
[2017-04-16 07:43] LABS: Vancomycin, Trough 13.5 ug/mL
[2017-04-16] MEDS ORDERED: Heparin 10,000 UNITS/ 10 ML VIAL ONE (08:00)
--- NOTE | 2017-04-16 08:33 | PRG ---
DATE OF SERVICE: 04/16/2017 RENAL MEDICINE SUBJECTIVE: Mr. Monge is a 61-year-old black male with ESRD and currently undergoing dialysis. I a m at the bedside supervising his hemodialysis. In the interim, he had a PD catheter and AV fistula p laced. He is doing well. Please note he was mildly hyperkalemic yesterday and for that reason under went a 2 hour hemodialysis. He had also a problem with hemodialysis catheter and Activase was placed . Currently, blood flow is much improved. I also repeated his blood culture yesterday due to findin g of 02/10 positive for coag negative staphylococcus. Currently, the blood culture done on 04/15/2017 showed no growth to date. He has no other complaints. He is feeling better. OBJECTIVE: VITAL SIGNS: Blood pressure is 122/58, heart rate 87, respiratory rate 16, temperature 98.7, pulse o x 95%. GENERAL: Noted to be awake, comfortable, not in distress. SKIN: Adequate turgor. HEENT: He has slightly pale conjunctivae, anicteric sclerae. NECK: No neck mass, no carotid bruits, no JVD. CHEST: No deformities. LUNGS: Clear breath sounds. No wheezing, no crackles. HEART: Normal sinus rhythm. No murmurs, no gallops or rubs. ABDOMEN: Globular, soft, nontender, no masses. Positive for PD catheter. EXTREMITIES: Trace edema. He has also a left AV fistula. MEDICATIONS: Medications of 04/16/2017 reviewed. LABORATORY DATA: Laboratories of 04/16/3017; white count 6.9, hemoglobin 9.2, hematocrit 29.4, sodiu m 134, potassium 5, chloride 95, carbon dioxide 30, BUN 27, creatinine 7.25, calcium 9.2. ASSESSMENT AND PLAN: 1. End-stage renal disease, stable. Tolerating current hemodialysis regimen. Continue Thursday, Thu, and Thursday dialysis. Fluid removal as tolerated. 2. Hyperkalemia - resolved with dialysis yesterday. Continue current 4-hour dialysis today. Fiordaliza loyd, using a 2-0 potassium bath. 3. Mild anemia - continuing weekly Epogen. Agree with current management.
[2017-04-16] MEDS: Sevelamer Carbonate 800 MG TAB PO SCH ×3 (09:14→16:49)
[2017-04-16] MEDS: Amlodipine 5 MG TAB PO SCH ×2 (12:03→20:32)
[2017-04-16] MEDS: Folic Acid/Vit B Comp W-C PO SCH (12:04)
[2017-04-16] MEDS: Aspirin 81 mg Enteric Coated Tablet PO SCH (12:04)
[2017-04-16] MEDS: Calcitriol 0.25 MCG CAP PO SCH (12:04)
[2017-04-16] MEDS: Docusate 100 MG CAP PO SCH ×2 (12:04→20:33)
--- NOTE | 2017-04-16 22:06 | PDOC.PN ---
- Subjective Encounter Start Date: 04/16/17 Encounter Start Time: 13:00 Patient seen and examined. No new complaints. No overnight events. s/p dialysis today - Objective Resuscitation Status: Resuscitation Status FULL:Full Resuscitation MAR Reviewed: Yes Vital Signs & Weight: Vital Signs (12 hours) Temp Pulse Resp BP BP BP Pulse Ox 04/16/17 21:41 82 16 97 04/16/17 20:32 94 133/70 04/16/17 20:30 99.2 F 94 16 133/70 92 L 04/16/17 19:06 80 16 98 04/16/17 15:25 98.6 F 89 16 130/66 92 L 04/16/17 14:07 79 16 99 04/16/17 12:03 87 147/67 H 04/16/17 12:00 98.6 F 79 16 147/69 H 99 Weight Weight 226 lb 12.8 oz I&O: 04/15/17 04/16/17 04/17/17 06:59 06:59 06:59 Intake Total 420 1830 550 Output Total 5 3000 3000 Balance 672 -9880 -7638 Result Diagrams: 04/16/17 05:31 04/17/17 05:45 Additional Labs: Accuchecks 04/16/17 04/16/17 04/16/17 20:33 16:45 12:05 POC Glucose 132 H 203 H 116 H 04/16/17 04/15/17 03:49 23:19 POC Glucose 127 H 181 H EKG Reviewed by me: Yes (Tele SR) Phys Exam - Physical Examination Constitutional: NAD Respiratory: no wheezing, no rhonchi Cardiovascular: RRR, no rub Gastrointestinal: soft, non-tender, positive bowel sounds Musculoskeletal: no edema Neurological: moves all 4 limbs Dx/Plan - Plan DVT proph w/SCDs IMPRESSION: 1. Life-threatening hyperkalemia secondary to missed hemodialysis with Volume overload. improving 2. Metabolic acidosis. improving 3. End-stage renal disease, on hemodialysis Thursday, , and Thursday. 4. Generalized weakness with somnolence, probably secondary to #1. improving 5. s/p Code green 6. Chronic anemia secondary to renal insufficiency. 7. Elevated troponin due to demand ischemia (Pt did not have NSTEMI) 8. Acute hypoxic respiratory failure secondary to volume overload/Acute on Chronic diastolic heart failure 9. 1/2 Blood culture positive for CN Staph - porbably contamination. 10. History of reactive airway disease/Diabetes mellitus, type 2. on sliding scale / SASHA on CPAP/Hyperlipidemia. PLAN: * s/p PD catheter * Dialysis per Nephro * Cont Imdur/insulin sliding scale * Cont current meds as below * Cont renal diet * Add CPAP * Repeat blood cultures negative * DC planning in 24 hr if ok with consultants * . Review of Systems - Review of Systems Respiratory: negative: Cough, Dry, Shortness of Breath, Hemoptysis, SOB with Excertion, Pleuritic Pain, Sputum, Wheezing Cardiovascular: negative: chest pain, palpitations, orthopnea, paroxysmal nocturnal dyspnea, edema, light headedness - Medications/Allergies Allergies/Adverse Reactions: Allergies Allergy/AdvReac Type Severity Reaction Status Date / Time No Known Drug Allergies Allergy Verified 04/11/17 20:15 Medications: Current Medications Acetaminophen (Tylenol) 1,000 mg PO Q6H PRN PRN Reason: Moderate to Severe Pain (6-10) Albuterol/Ipratropium (Duoneb) 3 ml NEB [id number] [facility] Last Admin: 04/16/17 21:41 Dose: 3 ml Albuterol/Ipratropium (Duoneb) 3 ml NEB [id number] PRN PRN Reason: SOB &/or Wheezing Amlodipine Besylate (Norvasc) 5 mg PO BID [facility] Last Admin: 04/16/17 20:32 Dose: 5 mg Aspirin (Ecotrin) 81 mg PO DAILY [facility] Last Admin: 04/16/17 12:04 Dose: 81 mg Calcitriol (Rocaltrol) 0.5 mcg PO DAILY [facility] Last Admin: 04/16/17 12:04 Dose: 0.5 mcg Clonidine (Catapres) 0.1 mg PO Q4H PRN PRN Reason: Systolic BP > 180 Dextrose/Water (Dextrose 50%) 25 gm SLOW IVP PRN PRN PRN Reason: Hypoglycemia Docusate Sodium (Colace) 100 mg PO BID [facility] Last Admin: 04/16/17 20:33 Dose: Not Given Epoetin Graham (Procrit) 7,500 units SC Q7D [facility] Last Admin: 04/12/17 16:29 Dose: 7,500 units Gabapentin (Neurontin) 300 mg PO MWF [facility] Last Admin: 04/15/17 08:06 Dose: Not Given Glucagon (Glucagon) 1 mg IM PRN PRN PRN Reason: Hypoglycemia Hydralazine HCl (Apresoline) 10 mg SLOW IVP Q4H PRN PRN Reason: SBP Greater Than 180 Dextrose/Water (D5w) 1,000 mls @ 0 mls/hr IV .Q0M PRN; As Directed PRN Reason: Hypoglycemia Vancomycin HCl 1.25 gm/ Sodium (Chloride) 250 mls @ 166.667 mls/hr IVPB WILLCALL [facility] Vancomycin HCl 1 gm/ Device 200 mls @ 200 mls/hr [facility] Vancomycin HCl 750 mg/ Sodium (Chloride) 250 mls @ 250 mls/hr IVPB WILLCALL [facility] Last Admin: 04/16/17 10:13 Dose: 250 mls Vancomycin HCl 500 mg/ Sodium (Chloride) 100 mls @ 100 mls/hr IVPB [facility] Insulin Human Regular (Humulin R) 0 units SC .MILD SLIDING SCALE PRN PRN Reason: Mild Correctional Scale Insulin Human Regular (Humulin R) 0 units SC .BEDTIME SLIDING SC PRN PRN Reason: Bedtime Correctional Scale Miscellaneous Medication (Pharmacy To Dose) 0 each IVPB ASDIR PRN PRN Reason: Pharmacy to Dose VANCOMYCIN Nitroglycerin (Nitrostat) 0.4 mg PO Q5MIN PRN PRN Reason: Chest Pain Hold Vancomycin For (Level >20) 0 each FS .AT DIALYSIS [facility] Ondansetron HCl (Zofran Odt) 4 mg PO Q6H PRN PRN Reason: Nausea/Vomiting Ondansetron HCl (Zofran) 4 mg IVP Q6H PRN PRN Reason: Nausea/Vomiting Last Admin: 04/15/17 06:21 Dose: 4 mg Senna (Senokot) 2 tab PO HSPRN PRN PRN Reason: Constipation Sevelamer Carbonate (Renvela) 1,600 mg PO TID-[facility] Last Admin: 04/16/17 16:49 Dose: 1,600 mg Sodium Chloride (Flush - Normal Saline) 10 ml IVF Q12HR [facility] Last Admin: 04/16/17 20:34 Dose: 10 ml Sodium Chloride (Flush - Normal Saline) 10 ml IVF PRN PRN PRN Reason: Saline Flush Tramadol HCl (Ultram) 50 mg PO Q6H PRN PRN Reason: Pain 1ST LINE Last Admin: 04/15/17 02:10 Dose: 50 mg Tramadol HCl (Ultram) 100 mg PO Q6H PRN PRN Reason: Pain 2ND LINE Last Admin: 04/16/17 03:41 Dose: 100 mg Vitamin B Complex/Vit C/Folic Acid (Nephro-[place] Tablet) 1 tab PO DAILY [facility] Last Admin: 04/16/17 12:04 Dose: 1 tab
[2017-04-17] MEDS: traMADol HCl 50 MG TAB PO PRN (00:33)
[2017-04-17 06:10] LABS: Anion Gap 12 mmol/L (10-20); BUN (Urea Nitrogen) 22 mg/dL (8.4-25.7); Calc. Creatinine Clearance 18 mL/min (70-130); Calcium 9.5 mg/dL (7.8-10.44); Carbon Dioxide 29 mmol/L (23-31); Chloride 98 mmol/L (98-107); Estimated GFR-MDRD 9; Glucose 138 mg/dL (80-115); Potassium 4.2 mmol/L (3.5-5.1); Sodium 135 mmol/L (136-145)
[2017-04-17] MEDS: Aspirin 81 mg Enteric Coated Tablet PO SCH (07:51)
[2017-04-17] MEDS: Calcitriol 0.25 MCG CAP PO SCH (07:51)
[2017-04-17] MEDS: Sevelamer Carbonate 800 MG TAB PO SCH ×3 (07:51→17:15)
[2017-04-17] MEDS: Amlodipine 5 MG TAB PO SCH ×2 (07:52→20:19)
[2017-04-17] MEDS: Gabapentin 300 MG CAP PO SCH (07:52)
[2017-04-17] MEDS: Folic Acid/Vit B Comp W-C PO SCH (07:52)
[2017-04-17] MEDS: Docusate 100 MG CAP PO SCH ×2 (07:54→20:19)
--- NOTE | 2017-04-17 11:27 | PDOC.PN ---
- Subjective Encounter Start Date: 04/17/17 Encounter Start Time: 10:00 no acute night events or new complaints - Objective Resuscitation Status: Resuscitation Status FULL:Full Resuscitation Vital Signs & Weight: Vital Signs (12 hours) Temp Pulse Resp BP BP Pulse Ox 04/17/17 10:53 98.3 F 88 16 139/74 89 L 04/17/17 08:30 90 L 04/17/17 08:29 89 20 90 L 04/17/17 08:00 99 F 89 16 90 L 04/17/17 07:52 89 04/17/17 07:00 99.0 F 89 16 148/76 H 90 L 04/17/17 03:30 99.4 F 88 16 123/65 91 L 04/17/17 02:05 85 18 96 04/17/17 00:00 99.5 F 89 16 139/71 92 L Weight Weight 206 lb 8 oz I&O: 04/16/17 04/17/17 04/18/17 06:59 06:59 06:59 Intake Total 1830 750 360 Output Total 3000 3000 Balance -1170 -2250 360 Result Diagrams: 04/16/17 05:31 04/17/17 05:45 Additional Labs: Accuchecks 04/17/17 04/17/17 04/17/17 10:54 05:34 00:33 POC Glucose 193 H 142 H 169 H 04/16/17 04/16/17 04/16/17 20:33 16:45 12:05 POC Glucose 132 H 203 H 116 H Phys Exam - Physical Examination Constitutional: NAD HEENT: PERRLA, moist MMs Neck: no nodes, supple Respiratory: no wheezing, no rales Cardiovascular: RRR, no rub Gastrointestinal: soft, non-tender, no distention Musculoskeletal: pulses present Neurological: non-focal Psychiatric: A&O x 3 Dx/Plan (1) Acute respiratory failure Code(s): J96.00 - ACUTE RESPIRATORY FAILURE, UNSP W HYPOXIA OR HYPERCAPNIA Status: Acute Qualifiers: Respiratory failure complication: hypoxia Qualified Code(s): J96.01 - Acute respiratory failure with hypoxia (2) ESRD (end stage renal disease) on dialysis Code(s): N18.6 - END STAGE RENAL DISEASE; Z99.2 - DEPENDENCE ON RENAL DIALYSIS Status: Acute (3) Troponin I above reference range Code(s): R74.8 - ABNORMAL LEVELS OF OTHER SERUM ENZYMES Status: Acute Comment: Likley chronic due to CKD or demand ischemia (4) Volume overload Code(s): E87.70 - FLUID OVERLOAD, UNSPECIFIED Status: Acute Comment: d/t missed HD (5) Anemia in chronic kidney disease Code(s): N18.9 - CHRONIC KIDNEY DISEASE, UNSPECIFIED; D63.1 - ANEMIA IN CHRONIC KIDNEY DISEASE Status: Chronic Qualifiers: Chronic kidney disease stage: on chronic dialysis Qualified Code(s): N18.6 - End stage renal disease; D63.1 - Anemia in chronic kidney disease; D63.1 - Anemia in chronic kidney disease; Z99.2 - Dependence on renal dialysis; Z99.2 - Dependence on renal dialysis; Z99.2 - Dependence on renal dialysis; Z99.2 - Dependence on renal dialysis (6) DM2 (diabetes mellitus, type 2) Status: Chronic (7) HTN (hypertension) Code(s): I10 - ESSENTIAL (PRIMARY) HYPERTENSION Status: Chronic (8) Hyperkalemia Code(s): E87.5 - HYPERKALEMIA Status: Resolved - Plan cont current plan of care, plan discussed w/ family, social media content specialist, respiratory therapy * . continue HD T/Th/Sat PD and AV placed . nephro following borderline hypoxic as O2 has been downtrending from when he intially came in chest xray continue to monitor closely
--- NOTE | 2017-04-17 15:01 | RAD ---
PORTABLE AP CHEST X-RAY: 04/17/2017 HISTORY: Hypoxia. COMPARISON: 04/14/2017 FINDINGS: A tunneled right internal jugular vein hemodialysis catheter is again noted in place, with the tip ov erlying the expected location of the right atrium. There is bibasilar atelectasis with mild elevatio n of the right hemidiaphragm, unchanged from prior exam. The left internal jugular vein central veno us catheter is again noted in place and is also unchanged in position. The cardiac silhouette is mag nified by projection. Perihilar interstitial densities do appear mildly improved, but there is sligh tly better depth of inspiration on the current exam. The pulmonary vasculature is borderline increas ed. No other interval change. IMPRESSION: Overall stable chest with bibasilar atelectasis. POS: TORRIE
[2017-04-17] MEDS: Zolpidem Tartrate 5 MG TAB PO PRN (22:31)
[2017-04-18] MEDS: Sevelamer Carbonate 800 MG TAB PO SCH ×3 (07:09→18:11)
--- NOTE | 2017-04-18 10:21 | PRG ---
DATE OF SERVICE: 04/18/2017 SUBJECTIVE: No new complaints today. He is currently undergoing hemodialysis and I am at the [facility] e supervising his dialysis. He denies any chest pain or shortness of breath. PHYSICAL EXAMINATION: VITAL SIGNS: Blood pressure 141/73, heart rate 91, respiratory rate 17, temperature 97.9, pulse ox 9 2%. GENERAL: Awake, alert, comfortable, not in overt distress. SKIN: Adequate turgor. HEENT: He has slightly pale conjunctivae, anicteric sclerae. NECK: No neck mass, no carotid bruits, no JVD. CHEST: No deformities. LUNGS: Clear breath sounds. HEART: Normal sinus rhythm. No murmurs, no gallops, no rubs. ABDOMEN: Globular, soft, nontender. Positive for PD catheter. EXTREMITIES: No edema. MEDICATIONS: Medications of 04/18/2017 reviewed. LABORATORY DATA: Laboratories of 04/16/2017; white count 6.9, hemoglobin 9.2. on 04/17/2017, sodium 135, potassium 4.2, chloride 98, carbon dioxide 29, BUN 22, creatinine 6.15, glucose 128, calcium 9. 5. On 04/18/2017, glucose 129. ASSESSMENT AND PLAN: 1. Hyperkalemia, resolved with dialysis. 2. Congestive heart failure, clinically resolved with fluid removal from dialysis. 3. End-stage renal disease, stable. Continue current 3 times a week hemodialysis. We are planning to dialyze today for 4 hours and then remove several liters of fluid as tolerated. 4. Anemia, on weekly Epogen. Overall, agree with current management.
[2017-04-18] MEDS ORDERED: Heparin 1,000 UNITS/ML VIAL ONE (11:11)
[2017-04-18] MEDS: Calcitriol 0.25 MCG CAP PO SCH (12:28)
[2017-04-18] MEDS: Folic Acid/Vit B Comp W-C PO SCH (12:29)
[2017-04-18] MEDS: Aspirin 81 mg Enteric Coated Tablet PO SCH (12:29)
[2017-04-18] MEDS: Amlodipine 5 MG TAB PO SCH ×2 (12:29→20:57)
[2017-04-18] MEDS: Docusate 100 MG CAP PO SCH ×2 (12:35→20:57)
[2017-04-18 13:59] LABS: Vancomycin, Random 10.5 ug/mL (See Comment)
--- NOTE | 2017-04-18 15:19 | EKG ---
Test Reason : Blood Pressure : / mmHG Vent. Rate : 074 BPM Atrial Rate : 074 BPM P-R Int : 192 ms QRS Dur : 102 ms QT Int : 366 ms P-R-T Axes : 051 -43 006 degrees QTc Int : 406 ms Normal sinus rhythm Left axis deviation Low voltage QRS Cannot rule out Anterior infarct , age undetermined T wave inversion III Abnormal ECG Confirmed by CHERI GONZALEZ ([id number]), subeditor JESUS DARDEN ([id number]) on 04/18/2017 3:18:47 PM Referred By: Confirmed By:CHERI GONZALEZ
--- NOTE | 2017-04-18 17:13 | PDOC.PN ---
- Subjective Encounter Start Date: 04/18/17 Encounter Start Time: 17:10 Subjective: f/u for hyperkalemia in context of ESRD and missed dialysis. s/p LUE -: AV fistula. Feels much better today. - Objective Resuscitation Status: Resuscitation Status FULL:Full Resuscitation MAR Reviewed: Yes Vital Signs & Weight: Vital Signs (12 hours) Temp Pulse Resp BP Pulse Ox 04/18/17 15:40 76 20 04/18/17 15:31 98.9 F 98 20 130/68 98 04/18/17 15:15 98.9 F 86 24 H 130/68 98 04/18/17 13:16 100 04/18/17 13:15 86 20 100 04/18/17 12:36 98.9 F 86 16 97 04/18/17 12:29 86 04/18/17 12:22 98.9 F 86 16 136/75 97 Weight Weight 198 lb 6.656 oz I&O: 04/17/17 04/18/17 04/19/17 06:59 06:59 07:59 Intake Total 750 1230 120 Output Total 3000 0 4000 Balance -2250 1230 -3880 Result Diagrams: 04/16/17 05:31 04/17/17 05:45 Additional Labs: Accuchecks 04/18/17 04/18/17 04/18/17 16:33 12:23 06:01 POC Glucose 206 H 116 H 129 H 04/17/17 04/17/17 20:19 16:44 POC Glucose 192 H 113 H Radiology Reviewed by me: Yes (PCXR - mild edema, bibasilar atelectasis, HD cath in place) EKG Reviewed by me: Yes (Tele - SR) Phys Exam - Physical Examination Constitutional: NAD HEENT: PERRLA, oral pharynx no lesions Neck: no JVD, supple diminished in bases Respiratory: no wheezing Cardiovascular: RRR Gastrointestinal: soft, non-tender, no distention, positive bowel sounds Musculoskeletal: no edema, pulses present Neurological: normal sensation, moves all 4 limbs Psychiatric: A&O x 3 Skin: normal turgor, cap refill <2 seconds Dx/Plan (1) Acute respiratory failure Code(s): J96.00 - ACUTE RESPIRATORY FAILURE, UNSP W HYPOXIA OR HYPERCAPNIA Status: Acute Qualifiers: Respiratory failure complication: hypoxia Qualified Code(s): J96.01 - Acute respiratory failure with hypoxia Comment: Improved with dialysis, continue pulmonary supportive measures, weaning off all O2 support (2) ESRD (end stage renal disease) on dialysis Code(s): N18.6 - END STAGE RENAL DISEASE; Z99.2 - DEPENDENCE ON RENAL DIALYSIS Status: Chronic Comment: HD per Renal service (3) Volume overload Code(s): E87.70 - FLUID OVERLOAD, UNSPECIFIED Status: Acute Comment: d/t missed HD, tolerating current maintenance dialysis (4) Anemia in chronic kidney disease Code(s): N18.9 - CHRONIC KIDNEY DISEASE, UNSPECIFIED; D63.1 - ANEMIA IN CHRONIC KIDNEY DISEASE Status: Chronic Qualifiers: Chronic kidney disease stage: on chronic dialysis Qualified Code(s): N18.6 - End stage renal disease; D63.1 - Anemia in chronic kidney disease; D63.1 - Anemia in chronic kidney disease; Z99.2 - Dependence on renal dialysis; Z99.2 - Dependence on renal dialysis; Z99.2 - Dependence on renal dialysis; Z99.2 - Dependence on renal dialysis Comment: Hemoglobin stable, no evidence of acute blood loss (5) DM2 (diabetes mellitus, type 2) Status: Chronic (6) HTN (hypertension) Code(s): I10 - ESSENTIAL (PRIMARY) HYPERTENSION Status: Chronic Comment: Stable, continue Norvasc 5mg BID (7) Hyperkalemia Code(s): E87.5 - HYPERKALEMIA Status: Resolved Comment: resolved - Plan PT/OT, social work case manager, DVT proph w/SCDs Stable overall -: OOB/ambulate -: HD per Renal service -: Continue ASA 81mg daily -: Continue Norvasc 5mg BID * Likely home in 24-48h
[2017-04-19] MEDS: Amlodipine 5 MG TAB PO SCH ×2 (08:40→20:56)
[2017-04-19] MEDS: Calcitriol 0.25 MCG CAP PO SCH (08:40)
[2017-04-19] MEDS: Folic Acid/Vit B Comp W-C PO SCH (08:41)
[2017-04-19] MEDS: Aspirin 81 mg Enteric Coated Tablet PO SCH (08:41)
[2017-04-19] MEDS: Docusate 100 MG CAP PO SCH ×2 (08:42→20:56)
[2017-04-19] MEDS: Epoetin (ESRD) 20,000 UNITS/ML SC SCH (11:33)
[2017-04-19] MEDS: Sevelamer Carbonate 800 MG TAB PO SCH ×3 (11:36→19:34)
--- NOTE | 2017-04-19 12:25 | PDOC.PN ---
- Subjective Encounter Start Date: 04/19/17 Encounter Start Time: 12:15 Subjective: f/u for acute vol overload and hyperkalemia with ESRD. Feels much -: better but very weak and difficult ambulating. Concerned about returning -: home and walking. - Objective Resuscitation Status: Resuscitation Status FULL:Full Resuscitation MAR Reviewed: Yes Vital Signs & Weight: Vital Signs (12 hours) Temp Pulse Resp BP BP Pulse Ox 04/19/17 12:17 84 14 95 04/19/17 11:30 98.6 F 90 16 141/68 H 93 L 04/19/17 08:40 96 148/64 H 04/19/17 07:40 98.7 F 96 16 148/64 H 90 L 04/19/17 06:26 82 14 95 04/19/17 04:00 98.7 F 86 16 157/75 H 95 04/19/17 03:23 88 14 95 04/19/17 00:23 98.8 F 87 18 139/63 93 L Weight Weight 198 lb 6.656 oz I&O: 04/18/17 04/19/17 04/20/17 05:59 06:59 06:59 Intake Total Output Total Balance Result Diagrams: 04/16/17 05:31 04/17/17 05:45 Additional Labs: Accuchecks 04/19/17 04/19/17 04/18/17 11:08 05:36 20:52 POC Glucose 149 H 156 H 172 H 04/18/17 04/18/17 16:33 12:23 POC Glucose 206 H 116 H EKG Reviewed by me: Yes (Tele - SR) Phys Exam - Physical Examination Constitutional: NAD HEENT: PERRLA, oral pharynx no lesions Neck: no JVD, supple Respiratory: no wheezing, clear to auscultation bilateral Cardiovascular: RRR Gastrointestinal: soft, non-tender, no distention, positive bowel sounds Musculoskeletal: no edema, pulses present Neurological: normal sensation, moves all 4 limbs Psychiatric: A&O x 3 Skin: normal turgor, cap refill <2 seconds Dx/Plan (1) Acute respiratory failure Code(s): J96.00 - ACUTE RESPIRATORY FAILURE, UNSP W HYPOXIA OR HYPERCAPNIA Status: Acute Qualifiers: Respiratory failure complication: hypoxia Qualified Code(s): J96.01 - Acute respiratory failure with hypoxia Comment: Improved with dialysis, continue pulmonary supportive measures, weaning off all O2 support (2) ESRD (end stage renal disease) on dialysis Code(s): N18.6 - END STAGE RENAL DISEASE; Z99.2 - DEPENDENCE ON RENAL DIALYSIS Status: Chronic Comment: HD per Renal service (3) Volume overload Code(s): E87.70 - FLUID OVERLOAD, UNSPECIFIED Status: Acute Comment: d/t missed HD, tolerating current maintenance dialysis (4) Anemia in chronic kidney disease Code(s): N18.9 - CHRONIC KIDNEY DISEASE, UNSPECIFIED; D63.1 - ANEMIA IN CHRONIC KIDNEY DISEASE Status: Chronic Qualifiers: Chronic kidney disease stage: on chronic dialysis Qualified Code(s): N18.6 - End stage renal disease; D63.1 - Anemia in chronic kidney disease; D63.1 - Anemia in chronic kidney disease; Z99.2 - Dependence on renal dialysis; Z99.2 - Dependence on renal dialysis; Z99.2 - Dependence on renal dialysis; Z99.2 - Dependence on renal dialysis Comment: Hemoglobin stable, no evidence of acute blood loss (5) DM2 (diabetes mellitus, type 2) Status: Chronic (6) HTN (hypertension) Code(s): I10 - ESSENTIAL (PRIMARY) HYPERTENSION Status: Chronic Comment: Stable, continue Norvasc 5mg BID (7) Hyperkalemia Code(s): E87.5 - HYPERKALEMIA Status: Resolved Comment: resolved (8) Generalized weakness Code(s): R53.1 - WEAKNESS Status: Acute Comment: PT evaluation for functional assessment, likely will need HH with PT or outpt PT rx on d/c - Plan continue antibiotics, PT/OT, clinical social worker, out of bed/ambulate, DVT proph w/ SCDs Stable overall -: PT evaluation today -: Continue Vancomycin sliding scale with HD -: Epo 7500u sc q7d -: Likely home 04/20/17 after HD * .
[2017-04-19] MEDS: traMADol HCl 50 MG TAB PO PRN (15:23)
[2017-04-19] MEDS: Zolpidem Tartrate 5 MG TAB PO PRN (23:25)
--- NOTE | 2017-04-20 08:55 | PRG ---
DATE OF SERVICE: 04/20/2017 RENAL MEDICINE SUBJECTIVE: Mr. Monge is a 61-year-old black male with ESRD. He was initially admitted for CHF wit h hyperkalemia. These issues are now resolved with emergent hemodialysis. He is tolerating his curr ent maintenance hemodialysis. He still has some lower leg weakness which is actually improving with physical therapy. Denies any chest pain or shortness of breath. PHYSICAL EXAMINATION: VITAL SIGNS: Blood pressure is 147/66, heart rate 82, respiratory rate 15, temperature 99.1, pulse o x 91% room air. GENERAL: Awake, supine, comfortable, not in distress. SKIN: Adequate turgor. HEENT: Slightly pale conjunctivae, anicteric sclerae. NECK: No neck mass, no carotid bruits, no JVD. CHEST: No deformities. LUNGS: Clear breath sounds. No wheezing, no crackles. HEART: Normal sinus rhythm. No murmurs, no gallops, no rubs. ABDOMEN: Globular, soft, nontender, no masses. Positive for PD catheter. EXTREMITIES: Trace edema. Positive for left AV fistula - positive for bruit. NEUROLOGIC: Awake, oriented to 3 spheres. Moving all extremities. No tremors and no asterixis. De creased motor on the lower extremities. MEDICATIONS: Medications of 04/20/2017 reviewed. LABORATORY DATA: Laboratories of 04/16/2017; white count 6.9, hemoglobin 9.2. On 04/20/2017, glucos e 122. On 04/17/2017; sodium 135, potassium 4.2, chloride 98, carbon dioxide 29, BUN 22, and creatin ine 6.15. ASSESSMENT AND PLAN: 1. End-stage renal disease, stable. Continuing Thursday, , and Thursday dialysis. No indica tion for any emergent hemodialysis. 2. Anemia, continuing weekly Epogen. 3. Congestive heart failure/hyperkalemia, resolved. Continue current dialysis regimen. 4. Lower leg weakness, undergoing physical therapy, clinically improving. Recheck basic metabolic p catarino and CBC in a.m.
[2017-04-20] MEDS: Calcitriol 0.25 MCG CAP PO SCH (10:12)
[2017-04-20] MEDS: Gabapentin 300 MG CAP PO SCH (10:12)
[2017-04-20] MEDS: Sevelamer Carbonate 800 MG TAB PO SCH ×3 (10:12→17:26)
[2017-04-20] MEDS: Amlodipine 5 MG TAB PO SCH ×2 (10:13→20:09)
[2017-04-20] MEDS: Docusate 100 MG CAP PO SCH ×2 (10:13→20:09)
[2017-04-20] MEDS: Aspirin 81 mg Enteric Coated Tablet PO SCH (10:13)
[2017-04-20] MEDS: Folic Acid/Vit B Comp W-C PO SCH (10:13)
[2017-04-20] MEDS: traMADol HCl 50 MG TAB PO PRN (23:24)
[2017-04-20] MEDS: Zolpidem Tartrate 5 MG TAB PO PRN (23:24)
[2017-04-21 05:31] LABS: #Eosinphils 0.3 thou/uL (0.0-0.7); #Monocytes 0.5 thou/uL (0.11-0.59); #Neutrophils 3.6 thou/uL (1.40-6.50); %Basophils 0.9 % (0.0-1.0); %Eosinophils 4.8 % (0.0-10.0); %Monocytes 9.4 % (0.0-10.0); Hemoglobin 9.9 g/dL (14.0-18.0); Mean Corpuscular HGB CONC 31.6 g/dL (32.0-36.0); Mean Corpuscular Hemoglobin 31.1 pg (27.0-31.0); Mean Corpuscular Volume 98.4 fl (80.0-94.0); Mean Platelet Volume 6.5 fL (7.4-10.4); Platelet Count 350 thou/uL (130-400); RBC Distribution Width 16.8 % (11.5-14.5); Red Blood Cell (RBC) Count 3.17 mill/uL (4.70-6.10); White Blood Cell (WBC) Count 5.3 thou/uL (4.8-10.8)
[2017-04-21 05:44] LABS: Anion Gap 15 mmol/L (10-20); BUN (Urea Nitrogen) 59 mg/dL (8.4-25.7); Calc. Creatinine Clearance 10 mL/min (70-130); Calcium 9.8 mg/dL (7.8-10.44); Carbon Dioxide 27 mmol/L (23-31); Chloride 94 mmol/L (98-107); Estimated GFR-MDRD 5; Glucose 112 mg/dL (80-115); Potassium 5.1 mmol/L (3.5-5.1); Sodium 131 mmol/L (136-145)
--- NOTE | 2017-04-21 07:19 | PDOC.PN ---
- Subjective Encounter Start Date: 04/20/17 Encounter Start Time: 08:00 Subjective: weak, unable to walk alone - Objective Resuscitation Status: Resuscitation Status FULL:Full Resuscitation MAR Reviewed: Yes Vital Signs & Weight: Vital Signs (12 hours) Temp Pulse Resp BP BP BP Pulse Ox 04/20/17 23:26 98.8 F 84 16 135/69 93 L 04/20/17 22:53 79 14 95 04/20/17 20:20 99.4 F 89 16 04/20/17 20:09 89 136/67 04/20/17 20:05 99.4 F 89 16 136/67 99 Weight Weight 198 lb 6.656 oz I&O: 04/20/17 04/21/17 04/22/17 06:59 06:59 06:59 Intake Total 1160 1420 Output Total 0 0 Balance 1160 1420 Result Diagrams: 04/21/17 04:53 04/21/17 04:53 Additional Labs: Accuchecks 04/21/17 04/20/17 04/20/17 05:38 20:01 16:19 POC Glucose 120 H 153 H 137 H 04/20/17 11:20 POC Glucose 186 H Phys Exam - Physical Examination Neck: no JVD Respiratory: clear to auscultation bilateral Cardiovascular: RRR, no significant murmur Gastrointestinal: soft, non-tender, positive bowel sounds Musculoskeletal: edema present Dx/Plan (1) Generalized weakness Code(s): R53.1 - WEAKNESS Status: Acute Comment: PT evaluation for functional assessment, likely will need HH with PT or outpt PT rx on d/c (2) Troponin I above reference range Code(s): R74.8 - ABNORMAL LEVELS OF OTHER SERUM ENZYMES Status: Acute Comment: Likley chronic due to CKD or demand ischemia (3) Volume overload Code(s): E87.70 - FLUID OVERLOAD, UNSPECIFIED Status: Acute Comment: d/t missed HD, tolerating current maintenance dialysis (4) Anemia in chronic kidney disease Code(s): N18.9 - CHRONIC KIDNEY DISEASE, UNSPECIFIED; D63.1 - ANEMIA IN CHRONIC KIDNEY DISEASE Status: Chronic Qualifiers: Chronic kidney disease stage: on chronic dialysis Qualified Code(s): N18.6 - End stage renal disease; D63.1 - Anemia in chronic kidney disease; D63.1 - Anemia in chronic kidney disease; Z99.2 - Dependence on renal dialysis; Z99.2 - Dependence on renal dialysis; Z99.2 - Dependence on renal dialysis; Z99.2 - Dependence on renal dialysis Comment: Hemoglobin stable, no evidence of acute blood loss (5) DM2 (diabetes mellitus, type 2) Status: Chronic Qualifiers: Diabetes mellitus complication status: with kidney complications Diabetes mellitus complication detail: with chronic kidney disease Chronic kidney disease stage: on chronic dialysis (6) ESRD (end stage renal disease) on dialysis Code(s): N18.6 - END STAGE RENAL DISEASE; Z99.2 - DEPENDENCE ON RENAL DIALYSIS Status: Chronic Comment: HD per Renal service (7) HLD (hyperlipidemia) Code(s): E78.5 - HYPERLIPIDEMIA, UNSPECIFIED Status: Chronic (8) HTN (hypertension) Code(s): I10 - ESSENTIAL (PRIMARY) HYPERTENSION Status: Chronic Comment: Stable, continue Norvasc 5mg BID - Plan cont HD per renal -: CM for rehab vs snf -: cont accu/ss -: on vanc for 1/2 blood C&S pos, discuss with renal * .
[2017-04-21 07:44] LABS: Vancomycin, Random 9.7 ug/mL (See Comment)
--- NOTE | 2017-04-21 08:57 | PRG ---
DATE OF SERVICE: 04/21/2017 SUBJECTIVE: Mr. Monge is a 61-year-old black male with ESRD and currently on maintenance hemodialy sis. PD catheter, AV fistula has been placed recently. He was initially admitted for volume overloa d and hyperkalemia. He is doing well. He is now going to rehabilitation for further physical therap y. I am currently at the dialysis unit supervising his dialysis. No other complaints. No chest estuardo n or shortness of breath. PHYSICAL EXAMINATION: VITAL SIGNS: Blood pressure 138/77, heart rate 84, respiratory rate 16, temperature 94.8, pulse ox 9 3%. GENERAL: Awake, alert, comfortable, not in distress. SKIN: Adequate turgor. HEENT: He has pinkish conjunctivae, anicteric sclerae. NECK: No neck mass, no carotid bruits, no JVD. CHEST: No deformities. LUNGS: Clear breath sounds, no wheezing, no crackles. HEART: Normal sinus rhythm. No murmur, no gallops or rubs. ABDOMEN: Globular, soft, nontender. No masses. EXTREMITIES: No edema, no deformities. MEDICATIONS: 04/21/2017 - Reviewed. LABORATORIES: 04/21/2017 - White count 5.3, hemoglobin 9.9. Sodium 131, potassium 5.1, chloride 94 , carbon dioxide 27, BUN 59, creatinine 10, glucose 112, calcium 9.8. ASSESSMENT AND PLAN: 1. End-stage renal disease, stable. Tolerating current hemodialysis, maxing out fluid removal as to lerated. 2. Anemia, on weekly Epogen. 3. Congestive heart failure. 4. Hyperkalemia, resolved. I agree with current management.
[2017-04-21] MEDS: Sevelamer Carbonate 800 MG TAB PO SCH ×2 (09:18→12:58)
--- NOTE | 2017-04-21 12:26 | DIS ---
PRIMARY CARE PROVIDER: [facility]. FINAL DIAGNOSES: Acute respiratory failure; generalized weakness; abnormal troponins; volume overloa d; anemia of chronic kidney disease; diabetes mellitus, type 2; with end-stage renal disease, on dial ysis; dyslipidemia; hypertension; hyperkalemia. DISCHARGE MEDICATIONS: Hydralazine 25 mg twice a day, glipizide 10 mg a day, amlodipine 10 mg a day, Nephro-[place] 1 a day, gabapentin 300 mg every 2 days, calcitriol 0.5 mcg daily, tramadol 100 mg q.6 h ours p.r.n. pain, Ambien 5 mg at bedtime p.r.n., vancomycin HCl 1 gram post-hemodialysis per Renal, Z ofran oral dissolving tablet 4 mg q.6 hours p.r.n., DuoNeb 3 mL q.4 hour p.r.n. by RT, Procrit 7500 u nits every 7 days, aspirin 81 mg a day, amlodipine 5 mg a day, sevelamer 1600 mg t.i.d. ALLERGIES: No known drug allergies. CODE STATUS: FULL. PENDING AT THE TIME OF DISCHARGE: Nothing. HOSPITAL COURSE: Patient admitted to the hospital 04/13/2017, discharged to rehabilitation 04/22/19. Patient was admitted to [facility] with generalized weakness. He was trans ferred from [place], potassium 8.6, BUN 99, creatinine 18.25. Chest x-ray revealed volume overload. He received positive pressure noninvasive ventilation. He was placed in IMCU. Dr. Brooke, his nephrol ogist, was consulted for emergent hemodialysis. It was found the patient had not gone to dialysis fo r a week. While in IMCU, Dr. Yayo Jones, exploration driller, was consulted. The patient tolerated BiPA P and was weaned to nasal cannula. Dr. Guero Singh was consulted. On 04/14/2017, procedure is la paroscopic [address] mesh repair of supraumbilical incisional hernia, 3 cm in roland meter with primary fascial closure, laparoscopic omentopexy, laparoscopic peritoneal dialysis cathete r, double-cuffed pigtail, left arm primary AV fistula, perforating branch antecubital vein to the pro ximal radial artery outflow basilic and cephalic vein, calibrated to 4 mm coronary dilator without ob struction. The patient improved steadily during his hospital stay. His hemoglobin was 9.2-10.1 last 3 days of his hospital stay. His creatinine came down to 10.0, BUN 59, sodium 131, potassium 5.1, C O2 of 27. His blood cultures 1/2 grew coagulase-negative staphylococci, which has been treated with IV vancomycin post-hemodialysis. I will leave it up to his dialysis doctor how long to continue this . Patient is being transferred to rehab unit for PT/OT, as he is severely physically deconditioned. Followup post rehabilitation will [facility] with [facility] [place]. He will be followed for 3 t imes weekly, hemodialysis on Thursday, , Thursday by Dr. Brooke.
[2017-04-21] MEDS: Calcitriol 0.25 MCG CAP PO SCH (12:51)
[2017-04-21] MEDS: Folic Acid/Vit B Comp W-C PO SCH (12:52)
[2017-04-21] MEDS: Aspirin 81 mg Enteric Coated Tablet PO SCH (12:52)
[2017-04-21] MEDS: Docusate 100 MG CAP PO SCH (12:52)
[2017-04-21] MEDS: Amlodipine 5 MG TAB PO SCH (12:53)
[2017-04-21 12:54] VITALS: BP 130/65
--- NOTE | 2017-04-21 13:00 | PRG ---
DATE OF SERVICE: 04/21/2017 Cong Monge is doing well after 04/14/2017 laparoscopic mesh repair of supraumbilical ventral her reji from placement of his peritoneal dialysis catheter in [place], laparoscopic omentopexy, laparoscop ic peritoneal dialysis catheter placement and left arm fistula. He is having pain as expected in his abdomen. He has a good thrill and bruit in his left arm fistula. His abdomen is soft and nontender . Surgical site looks good. Dressing on his PD site is intact. I have asked the dialysis nurses to contact the peritoneal dialysis nurse to change the patient's peritoneal dialysis dressings and flus h his catheter. The peritoneal dialysis nurse can change the connections and replace the dressing. The patient will need to have his dialysis catheter flushed every week and he should undergo training for care of his peritoneal dialysis catheter and flushing of his peritoneal dialysis catheter. I martini ve discussed this with the dialysis nurses and they will arrange for the peritoneal dialysis nurse to do that. The patient should follow up in my office in 2-3 weeks.
[2017-04-21 16:05] VITALS: TEMP 99.2
[2017-04-22] MEDS ORDERED: Heparin 10,000 UNITS/ 10 ML VIAL ONE (12:49)
== END 2017-04-21 15:15 | DRG 264 ==
LOC: ERS 15:50 → IMCU/EMU 17:32 → 2NO 04-12 17:12 → IMCU/EMU 04-14 20:32 → 2NO 04-18 17:04
PROVIDERS: ADMIT Internal Medicine; ATTEND Internal Medicine
PROC: 5A1D70Z Performance of Urinary Filtration, Intermittent, Less than 6 Hours Per Day (ICD-10-PCS; 2017-04-11)
PROC: 0WQF4ZZ Repair Abdominal Wall, Percutaneous Endoscopic Approach (ICD-10-PCS; principal; 2017-04-14)
PROC: 031C09F Bypass Left Radial Artery to Lower Arm Vein with Autologous Venous Tissue, Open Approach (ICD-10-PCS; 2017-04-14)
PROC: 0DQU4ZZ Repair Omentum, Percutaneous Endoscopic Approach (ICD-10-PCS; 2017-04-14)
PROC: 0WHG43Z Insertion of Infusion Device into Peritoneal Cavity, Percutaneous Endoscopic Approach (ICD-10-PCS; 2017-04-14)
PROC: 02HV33Z Insertion of Infusion Device into Superior Vena Cava, Percutaneous Approach (ICD-10-PCS; 2017-04-14)
PROC: 5A1D70Z Performance of Urinary Filtration, Intermittent, Less than 6 Hours Per Day (ICD-10-PCS; 2017-04-14)
PROC: 5A1D70Z Performance of Urinary Filtration, Intermittent, Less than 6 Hours Per Day (ICD-10-PCS; 2017-04-15)
PROC: 5A1D70Z Performance of Urinary Filtration, Intermittent, Less than 6 Hours Per Day (ICD-10-PCS; 2017-04-16)
PROC: 5A1D70Z Performance of Urinary Filtration, Intermittent, Less than 6 Hours Per Day (ICD-10-PCS; 2017-04-18)
PROC: 5A1D70Z Performance of Urinary Filtration, Intermittent, Less than 6 Hours Per Day (ICD-10-PCS; 2017-04-21)
DX: I13.2 Hypertensive heart and chronic kidney disease with heart failure and with stage 5 chronic kidney disease, or end stage renal disease (principal); J96.01 Acute respiratory failure with hypoxia; N18.6 End stage renal disease; I50.33 Acute on chronic diastolic (congestive) heart failure; E87.2 Acidosis; I24.8 Other forms of acute ischemic heart disease; E11.22 Type 2 diabetes mellitus with diabetic chronic kidney disease; E87.5 Hyperkalemia; D63.1 Anemia in chronic kidney disease; Z99.2 Dependence on renal dialysis; K43.2 Incisional hernia without obstruction or gangrene; E78.5 Hyperlipidemia, unspecified; E66.9 Obesity, unspecified; Z68.31 Body mass index [BMI] 31.0-31.9, adult; G25.81 Restless legs syndrome; Z87.891 Personal history of nicotine dependence; G47.33 Obstructive sleep apnea (adult) (pediatric); Z79.82 Long term (current) use of aspirin; Z79.4 Long term (current) use of insulin; Z79.899 Other long term (current) drug therapy
CPT/HCPCS: 36415; 36416; 71045; 80048; 80053; 80202; 82330; 82550; 82553; 82803; 83690; 83735; 83880; 84484; 85025; 86706; 86850; 86900; 86901; 87040; 87149; 87340; 87633; 90935; 93005; 93306; 93798; 93970; 94640; 94644; 94660; 94760; 96374; 96375; A4216; C1781; G0257; G0365; G8978-GP-CL; G8979-GP-CJ; J0670; J1644; J1815; J2001; J2310; J2405; J2704; J2720; J2997; J3010; J3370; J7050; J7611; J7620; Q4081; S0028

== ENCOUNTER 2017-06-07 22:01 | Inpatient (IN) | payer MEDICARE ==
[2017-06-07 23:02] LABS: #Eosinphils 0.1 thou/uL (0.0-0.7); #Lymphocytes 0.5 thou/uL (1.20-3.40); #Monocytes 0.6 thou/uL (0.11-0.59); #Neutrophils 9.8 thou/uL (1.40-6.50); %Basophils 0.4 % (0.0-1.0); %Eosinophils 0.7 % (0.0-10.0); %Lymphocytes 4.7 % (21.0-51.0); %Monocytes 5.4 % (0.0-10.0); %Neutrophils 88.8 % (42.0-75.0); Hemoglobin 11.5 g/dL (14.0-18.0); Mean Corpuscular HGB CONC 32.5 g/dL (32.0-36.0); Mean Corpuscular Volume 98.4 fl (80.0-94.0); Mean Platelet Volume 7.6 fL (7.4-10.4); Platelet Count 243 thou/uL (130-400); RBC Distribution Width 16.1 % (11.5-14.5); Red Blood Cell (RBC) Count 3.58 mill/uL (4.70-6.10); White Blood Cell (WBC) Count 11.1 thou/uL (4.8-10.8)
[2017-06-07 23:08] LABS: INR-International Normal Ratio 1.2; PTT 36.2 SEC (22.9-36.1); Prothrombin Time 14.9 SEC (12.0-14.7)
--- NOTE | 2017-06-07 23:12 | RAD ---
LEFT ELBOW TWO VIEWS: History: Fall, left elbow pain. FINDINGS/IMPRESSION: No acute fracture or dislocation is seen. There are surgical clips in the decubital fossa. POS: [facility]
--- NOTE | 2017-06-07 23:17 | RAD ---
PORTABLE CHEST ONE VIEW: Date: 06-07-17 Time: 10:09 p.m. History: Abdominal pain, hypoglycemia. FINDINGS/IMPRESSION: Right sided dialysis catheter remains in place. The heart is enlarged. No lobar consolidation, pneumo thoraces, or large effusions are seen. There is continued elevation of the right hemidiaphragm with a djacent atelectatic change. POS: [facility]
--- NOTE | 2017-06-07 23:18 | RAD ---
AP PELVIS: History: Fall, left hip pain. FINDINGS/IMPRESSION: No definite fracture or dislocation is identified. A dialysis catheter is seen in the pelvis. POS: [facility]
[2017-06-07 23:26] LABS: ALT (SGPT) 25 U/L (8-55); AST (SGOT) 47 U/L (5-34); Albumin 3.7 g/dL (3.4-4.8); Alkaline Phosphatase 64 U/L (40-150); Anion Gap 27 mmol/L (10-20); Bilirubin, Total 0.5 mg/dL (0.2-1.2); CK (CPK) 728 U/L (30-200); Calc. Creatinine Clearance 0 mL/min (70-130); Calcium 9.7 mg/dL (7.8-10.44); Carbon Dioxide 22 mmol/L (23-31); Chloride 94 mmol/L (98-107); Estimated GFR-MDRD 2; Globulin 3.4 g/dL (2.4-3.5); Lipase 36 U/L (8-78); Magnesium 2.8 mg/dL (1.6-2.6); Potassium 5.8 mmol/L (3.5-5.1); Protein, Total 7.1 g/dL (5.8-8.1); Sodium 137 mmol/L (136-145)
[2017-06-07 23:28] LABS: Troponin I 0.183 ng/mL (< 0.028)
[2017-06-07 23:28] LABS: Glucose 49 mg/dL (80-115)
[2017-06-07] MEDS ORDERED: Dextrose 50% Abboject 50 ML SYRINGE ONE (23:29)
--- NOTE | 2017-06-07 23:35 | CT ---
CT BRAIN WITHOUT CONTRAST: History: Altered mental status, left sided weakness, hyperglycemia. Patient on dialysis. FINDINGS: No comparison. No evidence of acute infarct, hemorrhage, midline shift or abnormal extraaxial fluid collections are seen. Ventricular size is appropriate and the basilar cisterns patent. The bony calvarium is intact. There is mucosal disease in the paranasal sinuses. IMPRESSION: No CT evidence of acute intracranial process. POS: [facility]
[2017-06-07 23:37] LABS: BUN (Urea Nitrogen) 121 mg/dL (8.4-25.7)
[2017-06-08] MEDS ORDERED: Dextrose 5% in Water 1,000 ML IV PRN (00:24)
[2017-06-08] MEDS: Gabapentin 300 MG CAP PO SCH (02:57)
[2017-06-08] MEDS: Dextrose 50% Abboject 50 ML SYRINGE SLOW IVP PRN ×4 (04:30→20:04)
--- NOTE | 2017-06-08 06:20 | HP ---
CHIEF COMPLAINT: Hypoglycemia and shortness of breath. HISTORY OF PRESENT ILLNESS: Patient is a very pleasant 62-year-old male with a history of diabetes a nd peritoneal dialysis who was transferred from [facility] after having a fall and generalize d weakness. Patient currently states that he fell about 24 hours ago and was on the floor and unable to get any help. The patient denies any head injury from the fall. When EMS arrived, the patient w as found to be hypoglycemic and there were some concerns of some orthopedic injuries; however, the abran hopper underwent a CT head in the ER which was negative and had an x-ray of the left elbow which was n egative for any dislocation or acute fractures. Pelvic x-ray was negative for any acute fractures an d chest x-ray just indicated elevated right hemidiaphragm. Currently patient denies any shortness of breath; however, does complain of some mild chest pain upon palpation. PAST MEDICAL HISTORY: 1. End-stage renal disease. 2. Hypertension. 3. Multiple falls. 4. Diabetes type 2. 5. Anemia. 6. Hyperlipidemia. 7. History of obesity. 8. History of pulmonary disease. 9. Chronic kidney disease on dialysis. PAST SURGICAL HISTORY: Patient has an AV fistula which is not working. He has a tunneled catheter a nd currently has a peritoneal catheter for dialysis, history of cholecystectomy. SOCIAL HISTORY: He drinks socially. Denies any smoking or drug use. ALLERGIES: He has no known allergies. CURRENT MEDICATIONS: He takes vitamin D3 daily, clonidine 0.3 mg daily, NovoLog unknown dose daily, Levemir 10 units daily, Renvela 800 mg 1 tab 3 times a day. FAMILY HISTORY: No history of any heart disease. He does have a history of hypertension in his moth er's side. PHYSICAL EXAMINATION: VITAL SIGNS: Afebrile at 98.3, respirations of 16, pulse of 83, blood pressure 143/97. He is 99% on 3 liters. GENERAL: Patient is awake, alert, easily arousable; however, appears very sleepy. HEENT: Normocephalic, atraumatic. NECK: No lymphadenopathy noted. Mucous membranes are little bit on the pulp drier side. CARDIOVASCULAR: S1, S2 present. No murmurs, rubs or gallops. LUNGS: Clear to auscultation. No rhonchi or wheezes noted are yet. ABDOMEN: Obese. Bowel sounds are present x2. He does have a PD catheter. Also on the right chest wall, he does have a tunneled catheter. EXTREMITIES: Lower extremity mild edema. Pedal pulses are present x2. LABORATORY DATA: As the following; WBCs of 11.1, hemoglobin of 11.5, hematocrit of 35.2, and platele ts of 243. His chemistry; sodium of 137, potassium of 5.8, bicarbonate of 22, BUN of 121, creatinine of 20.31. His sugar was 49. Mild elevated troponin, CK of 728, magnesium of 2.8. ASSESSMENT AND PLAN: The patient is a 62-year-old male who presents to the hospital after a fall. 1. Mechanical fall. Patient denies any head injury. So far, all scans are negative. We will consu lt PT for further evaluation. 2. Hyperglycemia. We will continue to monitor. Patient received D50 x2 in the ER. We will hold pa tient's insulin. We will continue to do Accu-Cheks every q.2 hours. 3. End-stage renal disease on dialysis. The patient missed his PD dialysis yesterday. Nephrology h as been consulted and patient is going to be dialyzed tonight. 4. Mildly elevated CK. This most likely is from his fall. We will continue to monitor. We will co ntinue to trend. 5. The patient also has mildly elevated troponins which could be secondary to his fall. We will con tinue to trend patient's troponins. Patient has had an echocardiogram this year which indicates an E F of 69%-65% and no significant valvular abnormalities are noted. 5. Deep venous thrombosis prophylaxis. We will put patient on subcu heparin.
[2017-06-08 06:46] LABS: #Eosinphils 0.1 thou/uL (0.0-0.7); #Lymphocytes 0.3 thou/uL (1.20-3.40); #Monocytes 0.5 thou/uL (0.11-0.59); #Neutrophils 7.8 thou/uL (1.40-6.50); %Eosinophils 0.9 % (0.0-10.0); %Lymphocytes 3.6 % (21.0-51.0); %Monocytes 5.6 % (0.0-10.0); %Neutrophils 89.9 % (42.0-75.0); Hemoglobin 11.1 g/dL (14.0-18.0); Mean Corpuscular HGB CONC 33.1 g/dL (32.0-36.0); Mean Corpuscular Hemoglobin 32.7 pg (27.0-31.0); Mean Corpuscular Volume 98.9 fl (80.0-94.0); Mean Platelet Volume 7.5 fL (7.4-10.4); Platelet Count 230 thou/uL (130-400); RBC Distribution Width 16.2 % (11.5-14.5); Red Blood Cell (RBC) Count 3.39 mill/uL (4.70-6.10); White Blood Cell (WBC) Count 8.7 thou/uL (4.8-10.8)
[2017-06-08 07:11] LABS: Anion Gap 17 mmol/L (10-20); BUN (Urea Nitrogen) 60 mg/dL (8.4-25.7); CK (CPK) 565 U/L (30-200); Calc. Creatinine Clearance 9 mL/min (70-130); Carbon Dioxide 27 mmol/L (23-31); Chloride 97 mmol/L (98-107); Estimated GFR-MDRD 5; Glucose 75 mg/dL (80-115); Potassium 4.6 mmol/L (3.5-5.1); Sodium 136 mmol/L (136-145)
[2017-06-08 07:21] LABS: CKMB 34.2 ng/mL (0-6.6)
[2017-06-08 07:52] LABS: pH, Arterial 7.15 (7.35-7.45)
[2017-06-08 07:53] LABS: Actual Bicarbonate (HCO3a) 33.4 mEq/L (22-26); Base Excess (BEa) 2.4 mEq/L (0 (+/-) 2.5); CO2 Tension 98.1 mmHg (35.0-45.0); Hematocrit-ABG 38.3 % (42.0-52.0); Hemoglobin (Hb) 10.9 g/dL (14.0-18.0); O2 Tension (PaO2) 70.4 mmHg (80.0-100.0)
[2017-06-08 07:54] LABS: ALV-art Gradient 92.175 (0-20); Calcium, Ionized 1.2 mmol/L (1.12-1.30); Puncture Site RBA
[2017-06-08] MEDS ORDERED: Dextrose 50% Abboject 50 ML SYRINGE ONE (08:07)
[2017-06-08 08:31] LABS: Actual Bicarbonate (HCO3a) 32.7 mEq/L (22-26); Base Excess (BEa) 2.6 mEq/L (0 (+/-) 2.5); CO2 Tension 88.3 mmHg (35.0-45.0); Hematocrit-ABG 37.6 % (42.0-52.0); Hemoglobin (Hb) 10.4 g/dL (14.0-18.0); O2 Tension (PaO2) 39.5 mmHg (80.0-100.0); pH, Arterial 7.19 (7.35-7.45)
[2017-06-08 08:32] LABS: Calcium, Ionized 1.2 mmol/L (1.12-1.30); Puncture Site RBA
[2017-06-08 08:33] LABS: ALV-art Gradient 27.125 (0-20)
[2017-06-08] MEDS ORDERED: Dextrose 50% Abboject 50 ML SYRINGE SLOW IVP SCH (08:45)
[2017-06-08] MEDS: Sevelamer Carbonate 800 MG TAB PO SCH ×3 (08:47→17:07)
[2017-06-08 09:05] LABS: Actual Bicarbonate (HCO3a) 28.9 mEq/L (22-26); Base Excess (BEa) 0.8 mEq/L (0 (+/-) 2.5); Calcium, Ionized 1.2 mmol/L (1.12-1.30); Hematocrit-ABG 37.6 % (42.0-52.0); Hemoglobin (Hb) 10.7 g/dL (14.0-18.0); O2 Tension (PaO2) 61.1 mmHg (80.0-100.0); Puncture Site RRA; pH, Arterial 7.27 (7.35-7.45)
[2017-06-08 09:54] LABS: Base Excess-Venous -4.1 mmol/L (0 (+/- 2.5)); Bicarbonate (HCO3v) 26.1 mmol/L (1.0-85.0); CO2 Tension (PvCO2) 74.3 mmHg (41.0-51.0); Calcium, Ionized 1.07 mmol/L (1.12-1.32); Hemoglobin - Calc 12.4 g/dL (12.0-18.0); Potassium 5.2 mmol/L (3.4-4.7); T. Carbon Dioxide 28.4 mmol/L (1.0-85.0); pH (Venous) 7.154 (7.35-7.45); vO2 Saturation-calc 85.1 % (94-98)
[2017-06-08] MEDS: Heparin 5,000 UNITS/ML VIAL SC SCH ×3 (09:58→22:11)
--- NOTE | 2017-06-08 10:16 | PRG ---
DATE OF SERVICE: 06/08/2017 SUBJECTIVE: Mr. Monge is a 62-year-old black male, who was admitted due to shortness of breath. Th e issue is whether he may be in CHF. He was not able to do his peritoneal dialysis for the last 24 h ours. Emergent hemodialysis was done last night. Pulmonary has evaluated this patient. He is noted to be still acidemic. He is currently on BiPAP. We were consulted for his maintenance dialysis. I have decided to place him on hemodialysis for the moment. REVIEW OF SYSTEMS: Not obtainable since the patient is obtunded. MEDICATIONS: Ecotrin 81 mg q. day, DuoNeb q.4, calcitriol 0.5 mcg daily, Neurontin 300 mg q.2 days, heparin 5000 units subcu t.i.d., Humalog sliding scale, and Renvela 800 mg 2 tabs t.i.d. with meals. PAST MEDICAL HISTORY: 1. ESRD, currently on peritoneal dialysis. 2. History of congestive heart failure. 3. Longstanding hypertension. 4. Type 2 diabetes mellitus. 5. COPD. 6. Restless leg syndrome. PAST SURGICAL HISTORY: 1. Status post PD catheter placement. 2. Status post cholecystectomy. 3. Status post cuffed dialysis catheter. 4. Status post tonsillectomy. 5. Status post AV fistula placement. ALLERGIES: None. TRAUMA: None. IMMUNIZATIONS: Up to date. HOSPITALIZATION: Please see past medical history. SOCIAL HISTORY: The patient lives in [place]. He lives alone. He is . Status post blood t ransfusion. Education: Some college courses. 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 He is a vet michael smoked for 5 years 1 pack a day. Alcohol rarely. FAMILY HISTORY: No family history of ESRD. PHYSICAL EXAMINATION: VITAL SIGNS: Blood pressure is 117/70, heart rate 93, respiratory rate 20, pulse ox 93%, and tempera ture 98.3. LABORATORY DATA: On 06/08/2017, white count 8.7, hemoglobin 11.1. Sodium 136, potassium 4.6, chlori de 97, carbon dioxide 27, BUN 60, creatinine 12. Troponin I 0.160. TSH 2.5. Chest x-ray - No overt CHF. ASSESSMENT AND PLAN: 1. Acute respiratory failure - most likely from a possible chronic obstructive pulmonary disease exa cerbation. He did receive emergent hemodialysis last night for fluid removal. 2. End-stage renal disease. We will continue current 3 times a week hemodialysis regimen with this patient, we will hold off peritoneal dialysis. I feel that this patient could not do PD at home due to his multiple medical problems. 3. Acute respiratory failure - currently on BiPAP. Pulmonary is following. He may have an intrinsi c lung problem from his chronic obstructive pulmonary disease. Overall, prognosis remains guarded.
[2017-06-08] MEDS ORDERED: Dextrose 10% in Water 1,000 ML IV SCH (10:30)
[2017-06-08] MEDS ORDERED: Heparin 10,000 UNITS/ 10 ML VIAL ONE (11:11)
[2017-06-08 12:18] LABS: Glucose Accucheck Confirmation 83 mg/dl (80-115)
--- NOTE | 2017-06-08 12:50 | CON ---
DATE OF CONSULTATION: 06/08/2017 HISTORY OF PRESENT ILLNESS: This is a 62-year-old morbidly obese gentleman who apparently was recent ly discharged from the hospital who was admitted to the MICU with uncontrolled blood sugar. He appar ently has a history that is obtained from the chart is that the patient has generalized weakness. He fell and he was unable to get up. No head injury. He was found to be hypoglycemic. Blood sugars were low. He was given D50. Nephrol jairo was consulted and underwent hemodialysis last night on an emergent basis. He has been having pro gressive mental status climate change analyst the course of the last several hours and blood gases show severe r espiratory acidosis and I was called to see the patient on an emergent basis. On arrival, he is lethargic, but he is arousable. His blood sugar was 74. Another amp of D50 was gi mao. He was transferred to the ICU on noninvasive ventilation. He is unable to give any history at this time, because of his mental status change. He apparently wa s not having any difficulty breathing in admission. PAST MEDICAL HISTORY: Pertinent for end-stage renal disease, port for hepato and hemodialysis access , diabetes, anemia, lipidemia, obesity, chronic renal failure. SOCIAL HISTORY: Apparently, no history of alcohol or tobacco abuse. PAST SURGICAL HISTORY: Access PD, cholecystectomy, tonsillectomy, right subclavian. MEDICATIONS: List of medicines from home includes, hydralazine 25 twice a day, glipizide 10 twice a day, Renvela 3 times a day, gabapentin 300, aspirin, Norvasc 10 a day. ALLERGIES: None. PHYSICAL EXAMINATION: GENERAL: Lethargic, arousable, on BiPAP. VITAL SIGNS: Sats are 95%, blood pressure 117/76, pulse 93, respiration rate 16. CHEST: Reveals decreased breath sounds, minimal rhonchi. CARDIAC: Normal S1, S2, no gallops. ABDOMEN: Soft, without any masses. LABORATORY DATA AND X-RAY FINDINGS: X-ray shows marked bilateral elevated diaphragm, probably from o besity and peritoneal dialysis. There are no acute infiltrates. White count is 8.7, H&H is 11 and 3 5, platelet count 230, pO2 70, PCO2 78,on a neb treatment 2 liters nasal O2. BUN and creatinine are 60 and 12. CK-MB , CK is 565. His EKG shows a possible anterior infarct, age undetermined. IMPRESSION: 1. [id number] respiratory failure, marked respiratory acidosis. 2. Renal failure. 3. Uncontrolled diabetes. 4. Hypoglycemia. 5. Morbid obesity. PLAN: Await family's input to continue on his ventilation. If his blood gases improved, he c ould be intubated. In the meantime, supportive care, IV fluids D5, Renal to follow. Deep venous thrombosis prophylaxis, proton pump inhibitors. Forty-five minutes critical care time.
[2017-06-08 13:53] VITALS: BMI 28.9
[2017-06-08] MEDS ORDERED: Sterile Water 10 ML ONE (14:31)
[2017-06-08] MEDS: Aspirin 81 mg Enteric Coated Tablet PO SCH (14:47)
[2017-06-08] MEDS: Calcitriol 0.25 MCG CAP PO SCH (14:48)
[2017-06-08 14:54] LABS: Glucose Accucheck Confirmation 38 mg/dl (80-115)
[2017-06-08 16:06] LABS: Actual Bicarbonate (HCO3a) 28.3 mEq/L (22-26); Base Excess (BEa) 0.1 mEq/L (0 (+/-) 2.5); CO2 Tension 65.6 mmHg (35.0-45.0); Hematocrit-ABG 37.6 % (42.0-52.0); Hemoglobin (Hb) 10.6 g/dL (14.0-18.0); pH, Arterial 7.25 (7.35-7.45)
[2017-06-08 16:07] LABS: Calcium, Ionized 1.1 mmol/L (1.12-1.30); Puncture Site RBA
[2017-06-08] MEDS ORDERED: DEXTROSE IV SCH ×2 (16:15→16:30)
[2017-06-08] MEDS ORDERED: STERILE WATER IV SCH ×2 (16:15→16:30)
[2017-06-08] MEDS ORDERED: WATER IV SCH ×2 (16:15→16:30)
[2017-06-08] MEDS ORDERED: Morphine 4 MG/ML VIAL SLOW IVP PRN (16:57)
[2017-06-08] MEDS ORDERED: Midazolam HCl 2 mg/2 ml Vial SLOW IVP PRN (16:58)
[2017-06-08 17:35] LABS: Actual Bicarbonate (HCO3a) 27.1 mEq/L (22-26); Base Excess (BEa) 0.2 mEq/L (0 (+/-) 2.5); CO2 Tension 55.2 mmHg (35.0-45.0); Hematocrit-ABG 35.4 % (42.0-52.0); Hemoglobin (Hb) 10.2 g/dL (14.0-18.0); O2 Tension (PaO2) 83.7 mmHg (80.0-100.0); pH, Arterial 7.31 (7.35-7.45)
[2017-06-08 17:36] LABS: Calcium, Ionized 1.1 mmol/L (1.12-1.30); Puncture Site RBA
--- NOTE | 2017-06-08 22:33 | PDOC.PN ---
- Subjective Encounter Start Date: 06/08/17 Encounter Start Time: 15:00 -: non-verbal Patient seen and examined for acute resp failure. On BiPAP. Events noted - Objective MAR Reviewed: Yes Vital Signs & Weight: Vital Signs (12 hours) Temp Pulse Resp BP Pulse Ox 06/08/17 22:14 85 127/61 06/08/17 22:00 20 06/08/17 20:00 99.4 F 91 20 100 06/08/17 19:40 24 H 06/08/17 19:00 99.4 F 06/08/17 18:43 82 124/66 06/08/17 18:00 20 06/08/17 17:00 20 06/08/17 16:45 92 139/63 06/08/17 16:00 98.5 F 21 H 06/08/17 14:23 84 06/08/17 14:00 22 H 06/08/17 12:00 21 H 06/08/17 11:00 98.4 F Weight Weight 213 lb 6.519 oz Most Recent Monitor Data Heart Rate from ECG 85 NIBP 127/61 NIBP BP-Mean 74 Respiration from ECG 23 SpO2 100 I&O: 06/07/17 06/08/17 06/09/17 06:59 06:59 06:59 Intake Total 475 Output Total 100 Balance 375 Result Diagrams: 06/09/17 00:58 06/08/17 06:36 Additional Labs: Accuchecks 06/08/17 06/08/17 06/08/17 22:15 20:58 20:00 POC Glucose 89 95 48 L* 06/08/17 06/08/17 06/08/17 18:03 16:58 16:00 POC Glucose 62 L 54 L* 77 06/08/17 06/08/17 06/08/17 14:58 14:22 12:15 POC Glucose 108 40 L* 73 06/08/17 06/08/17 06/08/17 11:34 10:05 08:11 POC Glucose 76 48 L* 82 06/08/17 06/08/17 06/08/17 07:45 06:43 05:55 POC Glucose 74 77 71 06/08/17 06/08/17 06/08/17 04:46 04:26 02:49 POC Glucose 136 H 54 L* 82 06/08/17 06/08/17 01:01 00:08 POC Glucose 82 130 H EKG Reviewed by me: Yes (Tele SR) Phys Exam - Physical Examination Pt in mild-mod resp distress, on NIPPV Respiratory: wheezing present Cardiovascular: RRR, no rub Gastrointestinal: soft, non-tender, positive bowel sounds Musculoskeletal: edema present Neurological: non-focal, moves all 4 limbs Psychiatric: A&O x 3 Dx/Plan - Plan DVT proph w/SCDs IMPRESSION: 1. Acute hypoxic/hypercapnic resp failure / Toxic Metabolic Encephalopathy/ Hypoglycemia 2. ESRD on dialysis with hyperkalemia 3. SASHA on CPAP 4. HLD 5. Other issues per H&P PLAN: * Cont NIPPV/Nebs/Atbx * Transferred to CCU for close monitoring * Cont dialysis * AM labs Review of Systems - Medications/Allergies Allergies/Adverse Reactions: Allergies Allergy/AdvReac Type Severity Reaction Status Date / Time No Known Drug Allergies Allergy Verified 06/08/17 01:09 Medications: Current Medications Acetaminophen (Tylenol) 650 mg PO Q4H PRN PRN Reason: Headache/Fever or Pain Albuterol/Ipratropium (Duoneb) 3 ml NEB [id number] [facility] Last Admin: 06/08/17 22:13 Dose: 3 ml Aspirin (Ecotrin) 81 mg PO DAILY [facility] Last Admin: 06/08/17 14:47 Dose: Not Given Calcitriol (Rocaltrol) 0.5 mcg PO DAILY [facility] Last Admin: 06/08/17 14:48 Dose: Not Given Dextrose/Water (Dextrose 50%) 25 gm SLOW IVP PRN PRN PRN Reason: Hypoglycemia Last Admin: 06/08/17 20:04 Dose: 25 gm Gabapentin (Neurontin) 300 mg PO Q2DAYS [facility] Last Admin: 06/08/17 02:57 Dose: Not Given Glucagon (Glucagon) 1 mg IM PRN PRN PRN Reason: Hypoglycemia Last Admin: 06/08/17 14:36 Dose: 1 mg Heparin Sodium (Porcine) (Heparin) 5,000 units SC TID [facility] Last Admin: 06/08/17 22:11 Dose: 5,000 units Dextrose/Water (D5w) 1,000 mls @ 0 mls/hr IV .Q0M PRN; As Directed PRN Reason: Hypoglycemia Last Admin: 06/08/17 06:15 Dose: 1,000 mls Sterile Water 714.3 ml/ (Dextrose/Water) 1,000 mls @ 30 mls/hr IV INF [facility] Insulin Human Lispro (Humalog) 0 units SC .MILD SLIDING SCALE PRN PRN Reason: Mild Correctional Scale Midazolam HCl (Versed) 2 mg SLOW IVP Q4HR PRN PRN Reason: Agitation Last Admin: 06/08/17 17:05 Dose: 2 mg Morphine Sulfate (Morphine) 4 mg SLOW IVP Q4H PRN PRN Reason: Dyspnea Last Admin: 06/08/17 17:05 Dose: 4 mg Sevelamer Carbonate (Renvela) 1,600 mg PO TID-WM [facility] Last Admin: 06/08/17 17:07 Dose: Not Given
[2017-06-09] MEDS: Acetaminophen 325 MG TAB PO PRN ×3 (00:48→19:18)
[2017-06-09] MEDS ORDERED: Vancomycin HCl 1 GM in Premix Bag 1 BAG IVPB SCH ×2 (03:30→03:45)
[2017-06-09] MEDS ORDERED: HOLD VANCOMYCIN FOR LEVEL >20 FS SCH (03:45)
[2017-06-09] MEDS ORDERED: Vancomycin HCl 1.25 GM in Sodium Chloride 0.9% 250 ML 250 ML IVPB SCH (03:45)
[2017-06-09] MEDS ORDERED: Vancomycin HCl 500 MG in Sodium Chloride 0.9% 100 ML IVPB SCH (03:45)
[2017-06-09] MEDS: Piperacillin/Tazobactam 2.25 GM in Sodium Chloride 0.9% 100 ML IVPB SCH ×2 (03:59→17:17)
[2017-06-09 06:34] LABS: Actual Bicarbonate (HCO3a) 24.8 mEq/L (22-26); Base Excess (BEa) 0.7 mEq/L (0 (+/-) 2.5); CO2 Tension 37.5 mmHg (35.0-45.0); Calcium, Ionized 1.2 mmol/L (1.12-1.30); Hematocrit-ABG 33.8 % (42.0-52.0); Hemoglobin (Hb) 9.6 g/dL (14.0-18.0); O2 Tension (PaO2) 83.7 mmHg (80.0-100.0); pH, Arterial 7.44 (7.35-7.45)
[2017-06-09 06:35] LABS: ALV-art Gradient 152.625 (0-20); Puncture Site RBA
[2017-06-09 06:45] LABS: Hemoglobin 10.3 g/dL (14.0-18.0); Mean Corpuscular HGB CONC 32.6 g/dL (32.0-36.0); Mean Corpuscular Hemoglobin 31.9 pg (27.0-31.0); Mean Corpuscular Volume 97.8 fl (80.0-94.0); Mean Platelet Volume 7.9 fL (7.4-10.4); Platelet Count 220 thou/uL (130-400); RBC Distribution Width 16.2 % (11.5-14.5); Red Blood Cell (RBC) Count 3.23 mill/uL (4.70-6.10); White Blood Cell (WBC) Count 8.2 thou/uL (4.8-10.8)
[2017-06-09 06:59] LABS: Anion Gap 19 mmol/L (10-20); BUN (Urea Nitrogen) 78 mg/dL (8.4-25.7); Calc. Creatinine Clearance 8 mL/min (70-130); Carbon Dioxide 23 mmol/L (23-31); Chloride 96 mmol/L (98-107); Estimated GFR-MDRD 5; Glucose 70 mg/dL (80-115); Magnesium 2.2 mg/dL (1.6-2.6); Potassium 4.7 mmol/L (3.5-5.1); Sodium 133 mmol/L (136-145)
[2017-06-09] MEDS: Sevelamer Carbonate 800 MG TAB PO SCH ×3 (08:31→17:17)
[2017-06-09] MEDS: Calcitriol 0.25 MCG CAP PO SCH (08:31)
[2017-06-09] MEDS: Aspirin 81 mg Enteric Coated Tablet PO SCH (08:31)
[2017-06-09] MEDS: Heparin 5,000 UNITS/ML VIAL SC SCH ×3 (08:31→20:27)
[2017-06-09 09:03] LABS: Band 2 % (5-11); Lymphocytes 16 % (21-51); MDiff Complete? YES; Monocytes 9 % (0-10); Neutrophil 73 % (42-75); RBC Morphology Normal
--- NOTE | 2017-06-09 09:08 | RAD ---
CHEST 1 VIEW: Date: 06/09/17 HISTORY: Ventilated patient. COMPARISON: Chest 1 view dated 06/07/17. FINDINGS: Lungs are hypoinflated. Patient is intubated. Endotracheal tube tip above the laquita 2.1 cm. Enteric tube tip is at the gastric body. There is vascular crowding and lung hypoinflation. Blunting left lateral costophrenic sulcus. IMPRESSION: 1. Severe lung hypoinflation. 2. Adequate location of the endotracheal tube and enteric tubes. 3. Dialysis catheter tip in right atrium. POS: [facility]
--- NOTE | 2017-06-09 09:24 | PRG ---
DATE OF SERVICE: 06/08/2017 SUBJECTIVE: The patient has been seen at least 4 times today in the course of the last several hours. His repeat blood gas shows a pO2 of 86, pCO2 of 65, pH 7.25 at 4:00. I reassessed him using a noninvasive ventilation with a rate of 20, sats 90%. He is clearly not arousable. His blood sugars have been constantly fluctuating with the most recent low blood sugar in the 40s and 77. He was switched over to D20. It was felt that at this stage that his condition was precarious, metabolic encephalopathy, hypoglycemia, morbid obesity, getting fluids, probably will get fluid overloaded, would have more respiratory compromise. They felt he need to be intubated. A bite block was placed in. A 7.5 endotracheal tube was placed above the flexible bronchoscope without any sedation, bite block. The patient is edentulous. We had difficulty controlling his tongue, but we were able to pass the tube via the vocal cords above the laquita. The tube was secured. He was bagged. Bronchoscope was re- passed again to reassess both lungs. There were frothy secretions, but no endobronchial obstruction or blood was seen. The patient connected to volume cycle respirator. NG tube was placed. OBJECTIVE: GENERAL: He was intubated without any sedation. He remains in spite of intubation very lethargic. VITAL SIGNS: Pulse 88, blood pressure 130/63, sats are 100%, respiratory rate is set at 20. CHEST: Revealed rhonchi. CARDIAC: Normal S1, S2. No gallop. ABDOMEN: No masses. IMPRESSION: 1. Respiratory failure,\SASHA. 2. Hypoglycemia. 3. Chronic renal failure. PLAN: Continue vent support. NG tube has been placed. We are going to start nutrition, low-dosetube feedings for_ hypoglycemia. Overall, 30 minutes critical care time excluding the intubation. [facility]
--- NOTE | 2017-06-09 09:42 | PRG ---
DATE OF SERVICE: 06/09/2017 SUBJECTIVE: Mr. Monge is a 62-year-old black male with ESRD and being followed by the [facility] for his maintenance hemodialysis. He was admitted initially due to shortness of breath and hypogly cemia. The patient is currently undergoing dialysis. I am currently at the bedside supervising his dialysis . Events last night was noted and patient was hypoglycemic. He is currently on D20 water with improved hypoglycemia. PHYSICAL EXAMINATION: VITAL SIGNS: Blood pressure is noted at 125/59, heart rate 84, respiratory rate 20, temperature 100. 4, and pulse ox 100%. GENERAL: Sedated and intubated on ventilator support. SKIN: Adequate turgor. HEENT: He has pinkish conjunctivae, anicteric sclerae. NECK: No neck mass, no carotid bruits, no JVD. CHEST: No deformities. LUNGS: Decreased breath sounds. No wheezing. HEART: Normal sinus rhythm. No murmurs, no gallops, no rubs. ABDOMEN: Globular, soft, nontender, no masses. Positive for PD catheter. EXTREMITIES: No edema. MEDICATIONS: Medications of 06/09/2017 reviewed. LABORATORY DATA: Laboratories of 06/09/2017; white count 8.2, hemoglobin 10.3, hematocrit 31.6. Sod ium 133, potassium 4.7, chloride 96, carbon dioxide 23, BUN 78, creatinine 13.32, glucose 70, calcium 9, and magnesium is 2.2. IMAGING DATA: Chest x-ray of 06/09/2017 shows severe lung hypoinflation. ASSESSMENT AND PLAN: 1. Fever/sepsis syndrome - currently on empiric IV antibiotics. Continue supportive care. 2. Acute respiratory failure, Pulmonary is following. He has severe hypoinflation of his lungs. 3. End-stage renal disease. Continue current maintenance hemodialysis. I am currently dialyzing hi m for the next 4 hours. Fluid removal about 2 liters and only as tolerated. We will place him back on Thursday, , and Thursday hemodialysis regimen. Overall, prognosis remains guarded.
[2017-06-09] MEDS ORDERED: Sterile Water 10 ML VIAL IVP SCH (10:00)
[2017-06-09] MEDS ORDERED: Activase 2 MG VIAL CATH SCH (10:00)
--- NOTE | 2017-06-09 10:04 | PRG ---
DATE OF SERVICE: 06/09/2017 SERVICE: Pulmonary Medicine. INTERVAL HISTORY: The patient is doing fine from cardiovascular and respiratory standpoint. He denies any chest pain, nausea, vomiting, fevers or chills. He is a little somnolent this morning. He is not on any sedation. He is on mechanical ventilation. Put him on a CPAP trial and his breaths were anemic. He became more somnolent. As such, we increased support just a touch. He is currently on hemodialysis. He is requiring a D10 drip. PHYSICAL EXAMINATION: VITAL SIGNS: T-max 101.5, pulse 87, blood pressure 105/52, respirations 14, saturation 96% on room air. GENERAL: The patient is awake and alert. He is in no apparent distress and breathing comfortably at this time. HEART: Normal rate, regular. ABDOMEN: Soft, nontender, and nondistended. Bowel sounds are positive. MUSCULOSKELETAL: No cyanosis or clubbing. There is no pitting in the bilateral lower extremities. NEUROLOGIC: Grossly nonfocal. LABORATORY DATA AND IMAGING DATA: WBC 8.2, hemoglobin 10.3, platelets 220,000. INR 1.2. A pH 7.44, pCO2 37.5, and pO2 84. Creatinine 13.32, down from 20. BUN 78, improved from 121. Basic metabolic profile is otherwise unremarkable. Magnesium 2.2. Chest x-ray demonstrates lung hypoinflation. Endotracheal tube and enteric tube is in good position. Dialysis catheter terminates in the atrium. ASSESSMENT: 1. Respiratory failure secondary to metabolic encephalopathy. 2. Metabolic encephalopathy. 3. Severe sepsis. 4. End-stage renal disease. PLAN: We will stafford culture the patient because of the fever. Empiric antibiotics will be initiated. The low blood sugar may be an effect of medications or severe sepsis. We currently have nothing to truthfully direct our antibiotics, so we will provide him with cefepime and vancomycin. Pulmonary or Critical Care will continue to follow along for the time being. Critical care time: 30 minutes. MTDD
[2017-06-09] MEDS ORDERED: WATER IV SCH (10:45)
[2017-06-09] MEDS ORDERED: SODIUM CHLORIDE IV SCH (10:45)
[2017-06-09] MEDS ORDERED: DEXTROSE 70% IV SCH (10:45)
[2017-06-09] MEDS ORDERED: Dextrose 5% in Water 1,000 ML IV SCH (19:00)
--- NOTE | 2017-06-09 22:15 | PDOC.PN ---
- Objective Vital Signs & Weight: Vital Signs (12 hours) Temp Pulse Resp BP Pulse Ox 06/09/17 20:45 98.4 F 96 24 H 95 06/09/17 20:00 98.3 F 96 24 H 95 06/09/17 18:34 96 24 H 93 L 06/09/17 16:00 17 06/09/17 14:26 93 152/73 H 06/09/17 14:00 18 06/09/17 12:00 20 06/09/17 11:00 98.8 F 06/09/17 10:37 91 147/67 H Weight Admit Weight 216 lb Weight 213 lb 6.519 oz Most Recent Monitor Data Heart Rate from ECG 94 NIBP 136/67 NIBP BP-Mean 92 Respiration from ECG 19 SpO2 95 I&O: 06/08/17 06/09/17 06/10/17 06:59 06:59 06:59 Intake Total 1770 1044 Output Total 100 0 Balance 1670 1044 Result Diagrams: 06/09/17 00:58 06/09/17 00:58 Additional Labs: Accuchecks 06/09/17 06/09/17 06/09/17 20:34 18:20 16:19 POC Glucose 167 H 159 H 127 H 06/09/17 06/09/17 06/09/17 14:20 12:20 10:01 POC Glucose 118 H 111 H 113 H 06/09/17 06/09/17 06/09/17 08:45 06:10 04:10 POC Glucose 93 87 93 06/09/17 06/09/17 06/08/17 02:21 01:06 23:56 POC Glucose 73 80 79 06/08/17 06/08/17 22:15 14:08 POC Glucose 89 40 L* Dx/Plan - Plan * .
[2017-06-10] MEDS: Gabapentin 300 MG CAP PO SCH (00:20)
[2017-06-10] MEDS: Piperacillin/Tazobactam 2.25 GM in Sodium Chloride 0.9% 100 ML IVPB SCH ×2 (04:02→17:22)
[2017-06-10 05:38] LABS: #Basophils 0.1 thou/uL (0.0-0.2); #Eosinphils 0.3 thou/uL (0.0-0.7); #Lymphocytes 0.7 thou/uL (1.20-3.40); #Monocytes 0.8 thou/uL (0.11-0.59); #Neutrophils 6.5 thou/uL (1.40-6.50); %Basophils 0.7 % (0.0-1.0); %Eosinophils 3.4 % (0.0-10.0); %Lymphocytes 7.9 % (21.0-51.0); %Monocytes 9.1 % (0.0-10.0); %Neutrophils 78.9 % (42.0-75.0); Hemoglobin 10.6 g/dL (14.0-18.0); Mean Corpuscular HGB CONC 32.2 g/dL (32.0-36.0); Mean Corpuscular Hemoglobin 32.2 pg (27.0-31.0); Mean Corpuscular Volume 99.9 fl (80.0-94.0); Mean Platelet Volume 7.7 fL (7.4-10.4); Platelet Count 202 thou/uL (130-400); RBC Distribution Width 16.5 % (11.5-14.5); White Blood Cell (WBC) Count 8.2 thou/uL (4.8-10.8)
[2017-06-10 05:52] LABS: Anion Gap 15 mmol/L (10-20); BUN (Urea Nitrogen) 35 mg/dL (8.4-25.7); Calc. Creatinine Clearance 13 mL/min (70-130); Calcium 8.7 mg/dL (7.8-10.44); Carbon Dioxide 26 mmol/L (23-31); Chloride 96 mmol/L (98-107); Estimated GFR-MDRD 8; Glucose 191 mg/dL (80-115); Potassium 4.3 mmol/L (3.5-5.1); Sodium 133 mmol/L (136-145)
--- NOTE | 2017-06-10 08:52 | RAD ---
PORTABLE CHEST: HISTORY: Dyspnea. CCU followup. COMPARISON: 06/09/17. FINDINGS: Cardiomegaly. Poor inspiration. CP angles are obscured suggesting small effusions. Mild vascular e ngorgement. ET tube and NG tube have been removed. IMPRESSION: No acute interval change in the appearance of the chest. POS: SEBASTIAN
[2017-06-10] MEDS ORDERED: Epoetin (ESRD) 20,000 UNITS/ML SC SCH (09:00)
--- NOTE | 2017-06-10 09:12 | PRG ---
DATE OF SERVICE: 06/10/2017 SUBJECTIVE: Mr. Monge is a 62-year-old black male with ESRD and admitted for mental status change w ith acute respiratory failure. He was also felt to be septic. He is currently on IV antibiotics. Leobardo truong is currently extubated and doing better. He was also noted to be hypoglycemic yesterday. However, blood sugar is much improved. He also received his dialysis yesterday without any problem. The patient voices no new complaints. He denies any chest pain or shortness of breath. PHYSICAL EXAMINATION: VITAL SIGNS: Blood pressure 125/62, heart rate 92, respiratory rate 19, pulse ox 93%. GENERAL: Noted to be awake, sitting comfortable, not in distress. SKIN: Adequate turgor. HEENT: He has pinkish conjunctivae, anicteric sclerae. NECK: No neck mass, no carotid bruits, no JVD. CHEST: No deformities. LUNGS: Clear breath sounds. No wheezing, no crackles. HEART: Normal sinus rhythm. No murmur, no gallops, no rubs. ABDOMEN: Globular, soft, nontender, no masses. EXTREMITIES: No edema, no deformities. He does have a positive PD catheter. MEDICATIONS: 06/10/2017 - Reviewed. LABORATORY: 06/10/2017 - White count 8.2, hemoglobin 10.6, hematocrit 33. Sodium 133, potassium 4.3, chloride 96, carbon dioxide 26, BUN 35, creatinine 8.1, glucose 191, calci um 8.7. Vancomycin level 06/09/2017 - 20. 06/09/2017 - Blood cultures were suggestive of Viridian's strep. ASSESSMENT AND PLAN: 1. Anemia - We will continue current Epogen regimen. We will resume this today. 2. Sepsis syndrome - on IV antibiotics. 3. Acute respiratory failure, much improved. The patient is currently extubated. 4. Chronic obstructive pulmonary disease, stable. Tolerating current hemodialysis regimen. Continu e Thursday, , and Thursday dialysis regimen. I did discuss with the patient at length to consider a group home facility placement. I left my cell phone and his sons will call me.
[2017-06-10] MEDS: Aspirin 81 mg Enteric Coated Tablet PO SCH (09:24)
[2017-06-10] MEDS: Calcitriol 0.25 MCG CAP PO SCH (09:24)
[2017-06-10] MEDS: Sevelamer Carbonate 800 MG TAB PO SCH ×3 (09:25→17:22)
[2017-06-10] MEDS: Heparin 5,000 UNITS/ML VIAL SC SCH ×3 (09:25→20:50)
[2017-06-10] MEDS: HumaLOG 300 UNITS/3 ML VIAL SC PRN ×2 (11:50→17:23)
--- NOTE | 2017-06-10 14:40 | PQF ---
KEVEN MARTÍNEZ MALIK MD [id number] [id number] CLINICAL DOCUMENTATION IMPROVEMENT CLARIFICATION FORM: ICD-10 Updated PLEASE DO AN ADDENDUM TO THE PROGRESS NOTE WITH ANY DOCUMENTATION UPDATES OR ADDITIONS AND CARRY THROUGH TO DC SUMMARY. THANK YOU. DATE: 06-10-17 ATTN: DR. MILLER Please exercise your independent, professional judgment in responding to the clarification form. Clinical indicators are provided on the bottom of this form for your review Please check appropriate box(s): [ ] Traumatic Rhabdomyolysis [ ] Non-Traumatic Rhabdomyolysis [ ] Unable to determine [ ] Other For continuity of documentation, please document condition throughout progress notes and discharge summary. Thank You. CLINICAL INDICATORS - SIGNS / SYMPTOMS/ LABS are present in the medical record: Lab Results: 06-07 CREATINE KINASE 728 CK-MB 39.0 ER DX: ACUTE ON CHRONIC RENAL INSUFFICIENCY H&P: MILDLY ELEVATED CK - MOST LIKELY FROM FALL RISK FACTORS H&P: ON FLOOR X 24 HOURS AFTER FALL TREATMENT H&P: TREND CK LABS MAR: D5W IVF -30 TO 5-1 ZOSYN IV - / - THANK YOU, LANIE (This form is maintained as a part of the permanent medical record) 2014 [employer]. All Rights Reserved Lanie De La Rosa RN, BS [email or web address] Cell Dr Kaba following this patient MTDD
--- NOTE | 2017-06-10 14:47 | PQF ---
KEVEN MARTÍNEZ MALIK MD [id number] CCU-[id number] CLINICAL DOCUMENTATION IMPROVEMENT CLARIFICATION FORM: ICD-10 Updated PLEASE DO AN ADDENDUM TO THE PROGRESS NOTE WITH ANY DOCUMENTATION UPDATES OR ADDITIONS AND CARRY THROUGH TO DC SUMMARY. THANK YOU. DATE: 06-10-17 ATTN: DR. MILLER Please exercise your independent, professional judgment in responding to the clarification form. Clinical indicators are provided on the bottom of this form for your review Diagnosis: ACUTE RESPIRATORY FAILURE Present on Admission (POA): [ ] Yes [ ] No [ ] Unable to determine Coding guidelines require hospitals to identify whether a diagnosis was present on admission (POA) or not. To accurately assign the appropriate POA indicator, this information must be clearly documented within the medical record. CLINICAL INDICATORS - SIGNS / SYMPTOMS / LABS ER: O2 SAT 98 ON 3L NC - BREATH SOUNDS DIMINISHED BU LOBES/BLL LOBES ON FLOOR X 24 HOURS AFTER FALL 4-30 H&P: DENIES ANY SOB COLON CONSULT: ADMITTED D/T SOB; 4-30 LARIOS PN: RESPIRATORY FAILURE APPARENTLY WAS NOT HAVING TROUBLE BREATHING ON ADMISSION - UNABLE TO OBTAIN HX D/T MENTAL STATUS CHANGE RISK FACTORS: ER: ON FLOOR X 24 HOURS AFTER FALL H&P: COPD MULTIPLE FALLS TREATMENT: ER: O2 3LNC 4-30 @ 0805 BIPAP MASK ON VENT 4-30 @ 1645 OFF VENT 5-1 @ 1655 THANK YOU, LANIE (This form is maintained as a part of the permanent medical record) 2015 [employer], [employer]. All Rights Reserved Lanie De La Rosa RN, [email or web address] Cell Dr Kaba following this patient MTDD
--- NOTE | 2017-06-10 15:06 | PQF ---
KEVEN MARTÍNEZ MALIK MD [id number] CCU-[id number] CLINICAL DOCUMENTATION IMPROVEMENT CLARIFICATION FORM: ICD-10 Updated PLEASE DO AN ADDENDUM TO THE PROGRESS NOTE WITH ANY DOCUMENTATION UPDATES OR ADDITIONS AND CARRY THROUGH TO DC SUMMARY. THANK YOU. DATE: 06-10-17 ATTN: DR. MILLER Please exercise your independent, professional judgment in responding to the clarification form. Clinical indicators are provided on the bottom of this form for your review Please check appropriate box(es): [ ] Sepsis d/t [ ] SIRS due to non-infectious process (please specify etiology) [ ] with organ dysfunction [ ] without organ dysfunction [ ] Severe sepsis with acute organ dysfunction of: (Examples: respiratory failure, encephalopathy, acute kidney failure, other) [ ] Localized infection without sepsis [ ] Other diagnosis [ ] Unable to determine In addition, please specify: Present on Admission (POA): [ ] Yes [ ] No [ ] Unable to determine For continuity of documentation, please document condition throughout progress notes and discharge summary. Thank You. 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 All Rights Reserved Lanie De La Rosa RN, [email or web address] Cell Dr Kaba following this patient MTDD
--- NOTE | 2017-06-10 18:14 | PRG ---
DATE OF SERVICE: 06/10/2017 SERVICE: Pulmonary Medicine. INTERVAL HISTORY: The patient is doing fine from cardiovascular and respiratory standpoint. He annita es any chest pain, nausea, vomiting, fevers or chills. His breathing is comfortable. He is on room air. His saturations are fantastic. Otherwise, there has been no interval change to his condition. PHYSICAL EXAMINATION: VITAL SIGNS: Afebrile. His T-max yesterday was 101.5. He has not had a fever since. Pulse 68, blo od pressure 131/64, respirations 18, and saturation 98% on room air. GENERAL: The patient is awake, alert, no apparent distress. LUNGS: Excellent air entry without prolonged expiratory phase. Dependent crackles are minimal. No wheezing or rhonchi are appreciated. HEART: Normal rate, regular. ABDOMEN: Soft, nontender, and nondistended. Bowel sounds are positive. MUSCULOSKELETAL: No cyanosis or clubbing. There is no pitting in the bilateral lower extremities. NEUROLOGIC: Grossly nonfocal. LABORATORY DATA: WBC 8.2, hemoglobin 10.6 and stable, platelets 202,000. Neutrophil count is stabil izing. Creatinine 8.10 and BUN 35. Basic metabolic profile is otherwise unremarkable. One out of t wo blood cultures is growing Strep viridans. IMAGING: Chest x-ray demonstrates no acute interval change. Endotracheal tube and NG tube had subse quently been removed. Small effusions are likely present. Mild vascular engorgement is now evident. ASSESSMENT: 1. Respiratory failure secondary to metabolic encephalopathy, resolved. 2. Hypoglycemia, resolved. 3. Severe sepsis. 4. Bacteremia secondary to Streptococcus viridans. 5. End-stage renal disease. DISCUSSION AND PLAN: The patient has bacteremia secondary to strep. He will need 2 weeks of antibio tics. ID consultation will be placed. Hopefully, fluoroquinolone will be adequate. The patient is currently stable from a respiratory perspective. He can be transitioned to the telemetry unit, but I will continue to follow for the time being.
[2017-06-10] MEDS: Acetaminophen 325 MG TAB PO PRN (23:55)
[2017-06-11] MEDS: Piperacillin/Tazobactam 2.25 GM in Sodium Chloride 0.9% 100 ML IVPB SCH ×2 (04:57→16:27)
--- NOTE | 2017-06-11 06:45 | PDOC.PN ---
- Subjective Encounter Start Date: 06/10/17 Encounter Start Time: 09:45 Subjective: pt up in chair no compalins - Objective Vital Signs & Weight: Vital Signs (12 hours) Temp Pulse Resp BP Pulse Ox 06/11/17 04:00 99.8 F H 94 20 155/70 H 98 06/11/17 00:00 94 L 06/10/17 21:47 75 16 95 06/10/17 19:00 98.8 F 75 16 141/76 H 93 L Weight Admit Weight 216 lb Weight 213 lb 6.519 oz Most Recent Monitor Data Heart Rate from ECG 88 NIBP 131/64 NIBP BP-Mean 80 Respiration from ECG 19 SpO2 96 I&O: 06/09/17 06/10/17 06/11/17 06:59 06:59 06:59 Intake Total 1770 1784 480 Output Total 100 0 0 Balance 1670 1784 480 Result Diagrams: 06/10/17 04:33 06/10/17 04:33 Additional Labs: Accuchecks 06/11/17 06/10/17 06/10/17 05:59 20:56 15:31 POC Glucose 136 H 170 H 201 H 06/10/17 06/10/17 06/10/17 11:33 08:32 06:37 POC Glucose 241 H 189 H 177 H 06/10/17 04:04 POC Glucose 189 H Phys Exam - Physical Examination HEENT: PERRLA, moist MMs, sclera anicteric, TM's clear, oral pharynx no lesions , 2+ tonsils Neck: no nodes, no JVD, supple, full ROM Respiratory: no wheezing, no rales, no rhonchi, wheezing present, clear to auscultation bilateral Cardiovascular: RRR, no significant murmur, no rub, gallop, irregular Gastrointestinal: soft, non-tender, no distention, positive bowel sounds Dx/Plan - Plan 1. Acute hypoxic/hypercapnic resp failure / Toxic Metabolic Encephalopathy/ Hypoglycemia 2. ESRD on dialysis with hyperkalemia 3. SASHA on CPAP 4. HLD 5) fall PLAN: * pt up in chair doing well * blood cx one bottle viridans pt on zosyn and vanco now will deescalate. * dialysis per nephrology * ID consulted Review of Systems - Review of Systems Eyes: negative: Pain, Vision Change, Conjunctivae Inflammation, Eyelid Inflammation, Redness, Other ENT: negative: Ear Pain, Ear Discharge, Nose Pain, Nose Discharge, Nose Congestion, Mouth Pain, Mouth Swelling, Throat Pain, Throat Swelling, Other Respiratory: negative: Cough, Dry, Shortness of Breath, Hemoptysis, SOB with Excertion, Pleuritic Pain, Sputum, Wheezing Cardiovascular: negative: chest pain, palpitations, orthopnea, paroxysmal nocturnal dyspnea, edema, light headedness, other Gastrointestinal: negative: Nausea, Vomiting, Abdominal Pain, Diarrhea, Constipation, Melena, Hematochezia, Other - Medications/Allergies Allergies/Adverse Reactions: Allergies Allergy/AdvReac Type Severity Reaction Status Date / Time No Known Drug Allergies Allergy Verified 06/08/17 01:09 Medications: Current Medications Acetaminophen (Tylenol) 650 mg PO Q4H PRN PRN Reason: Headache/Fever or Pain Last Admin: 06/10/17 23:55 Dose: 650 mg Albuterol/Ipratropium (Duoneb) 3 ml NEB [id number] [facility] Last Admin: 06/11/17 01:45 Dose: Not Given Aspirin (Ecotrin) 81 mg PO DAILY [facility] Last Admin: 06/10/17 09:24 Dose: 81 mg Calcitriol (Rocaltrol) 0.5 mcg PO DAILY [facility] Last Admin: 06/10/17 09:24 Dose: 0.5 mcg Dextrose/Water (Dextrose 50%) 25 gm SLOW IVP PRN PRN PRN Reason: Hypoglycemia Last Admin: 06/08/17 20:04 Dose: 25 gm Epoetin Graham (Procrit) 7,500 units SC Q7D [facility] Last Admin: 06/10/17 16:03 Dose: 7,500 units Gabapentin (Neurontin) 300 mg PO Q2DAYS [facility] Last Admin: 06/10/17 00:20 Dose: 300 mg Glucagon (Glucagon) 1 mg IM PRN PRN PRN Reason: Hypoglycemia Last Admin: 06/08/17 14:36 Dose: 1 mg Heparin Sodium (Porcine) (Heparin) 5,000 units SC TID [facility] Last Admin: 06/10/17 20:50 Dose: 5,000 units Dextrose/Water (D5w) 1,000 mls @ 0 mls/hr IV .Q0M PRN; As Directed PRN Reason: Hypoglycemia Last Admin: 06/08/17 06:15 Dose: 1,000 mls Piperacillin Sod/Tazobactam (Sod 2.25 gm/ Sodium Chloride) 100 mls @ 200 mls/ hr IVPB 0400,1600 [facility] Last Admin: 06/11/17 04:57 Dose: 100 mls Vancomycin HCl 1.25 gm/ Sodium (Chloride) 250 mls @ 166.667 mls/hr IVPB [facility] Vancomycin HCl 1 gm/ Device 200 mls @ 200 mls/hr IVPB [facility] Vancomycin HCl 750 mg/ Sodium (Chloride) 250 mls @ 250 mls/hr IVPB [facility] Vancomycin HCl 500 mg/ Sodium (Chloride) 100 mls @ 100 mls/hr IVPB [facility] Insulin Human Lispro (Humalog) 0 units SC .MILD SLIDING SCALE PRN PRN Reason: Mild Correctional Scale Last Admin: 06/10/17 17:23 Dose: 3 unit/kg Hold Vancomycin For (Level >20) 0 each FS .AT DIALYSIS [facility] Sevelamer Carbonate (Renvela) 1,600 mg PO TID-[facility] Last Admin: 06/10/17 17:22 Dose: 1,600 mg Sodium Chloride (Flush - Normal Saline) 10 ml IVF PRN PRN PRN Reason: Saline Flush
[2017-06-11 07:31] LABS: Anion Gap 19 mmol/L (10-20); BUN (Urea Nitrogen) 49 mg/dL (8.4-25.7); Calc. Creatinine Clearance 11 mL/min (70-130); Calcium 8.8 mg/dL (7.8-10.44); Carbon Dioxide 20 mmol/L (23-31); Chloride 96 mmol/L (98-107); Estimated GFR-MDRD 7; Glucose 126 mg/dL (80-115); Sodium 130 mmol/L (136-145)
[2017-06-11 07:58] LABS: #Eosinphils 0.5 thou/uL (0.0-0.7); #Lymphocytes 0.8 thou/uL (1.20-3.40); #Monocytes 0.3 thou/uL (0.11-0.59); #Neutrophils 4.9 thou/uL (1.40-6.50); %Basophils 0.7 % (0.0-1.0); %Eosinophils 7.5 % (0.0-10.0); %Lymphocytes 12.4 % (21.0-51.0); %Monocytes 4.2 % (0.0-10.0); %Neutrophils 75.2 % (42.0-75.0); Hemoglobin 9.9 g/dL (14.0-18.0); Mean Corpuscular HGB CONC 31.6 g/dL (32.0-36.0); Mean Corpuscular Hemoglobin 31.7 pg (27.0-31.0); Mean Platelet Volume 7.2 fL (7.4-10.4); Platelet Count 184 thou/uL (130-400); RBC Distribution Width 15.9 % (11.5-14.5); Red Blood Cell (RBC) Count 3.11 mill/uL (4.70-6.10); White Blood Cell (WBC) Count 6.5 thou/uL (4.8-10.8)
[2017-06-11 08:07] LABS: Anion Gap 13 mmol/L (10-20); BUN (Urea Nitrogen) 42 mg/dL (8.4-25.7); Calc. Creatinine Clearance 12 mL/min (70-130); Calcium 8.9 mg/dL (7.8-10.44); Carbon Dioxide 29 mmol/L (23-31); Chloride 95 mmol/L (98-107); Estimated GFR-MDRD 8; Glucose 111 mg/dL (80-115); Potassium 4.1 mmol/L (3.5-5.1); Sodium 133 mmol/L (136-145)
[2017-06-11 08:12] LABS: Vancomycin, Random 12.2 ug/mL (See Comment)
--- NOTE | 2017-06-11 08:46 | PRG ---
DATE OF SERVICE: 06/11/2017 SUBJECTIVE: Mr. Monge is a 62-year-old black male with ESRD and being followed by the [facility] for his maintenance hemodialysis. He is currently undergoing hemodialysis and I am at the bedside supervising his dialysis. He has no new complaints. He denies any chest pain or shortness of breath. I had a long discussion with his son and with the patient regarding alf facility placement. They have agreed with this. Of notes is that his hypoglycemia is resolved. PHYSICAL EXAMINATION: VITAL SIGNS: Blood pressure 155/70, heart rate 94, respiratory rate 20, temperature 99.8, pulse ox 98%. GENERAL: Noted to be awake, supine, comfortable, not in overt distress. SKIN: Adequate turgor. HEENT: He has slightly pale conjunctivae, anicteric sclerae. NECK: No neck mass, no carotid bruits, no JVD. CHEST: No deformities. LUNGS: Clear breath sounds. No wheezing, no crackles. HEART: Normal sinus rhythm. No murmur, no gallops or rubs. ABDOMEN: Globular, soft, nontender, no masses. Abdomen has a positive PD catheter. EXTREMITIES: No edema. MEDICATIONS: 06/11/2017 - Reviewed. LABORATORY: 06/11/2017 - White count 6.5, hemoglobin 9.9. Sodium 133, potassium 4.1, chloride 95, carbon dioxide 29, BUN 42, creatinine 8.45, glucose 111, calcium 8.9. ASSESSMENT AND PLAN: 1. End-stage renal disease, stable. The patient currently on a backup hemodialysis. Since there is a possibility he may go to a detention, he will be placed on hemodialysis indefinitely. So far he is tolerating the hemodialysis regimen. Continue Thursday, , and Thursday dialysis. 2. Anemia, on weekly Epogen. 3. Bacteremia. Currently on IV antibiotics. Overall, doing well. [facility]
--- NOTE | 2017-06-11 08:49 | PQF ---
KEVEN MARTÍNEZ DR. [id number] CCU-[id number] CLINICAL DOCUMENTATION IMPROVEMENT CLARIFICATION FORM: ICD-10 Updated PLEASE DO AN ADDENDUM TO THE PROGRESS NOTE WITH ANY DOCUMENTATION UPDATES OR ADDITIONS AND CARRY THROUGH TO DC SUMMARY. THANK YOU. DATE: 06-10-17 ATTN: DR. GARCIA Please exercise your independent, professional judgment in responding to the clarification form. Clinical indicators are provided on the bottom of this form for your review Please check appropriate box(s): [ x] Traumatic Rhabdomyolysis [ ] Non-Traumatic Rhabdomyolysis [ ] Unable to determine [ ] Other For continuity of documentation, please document condition throughout progress notes and discharge summary. Thank You. CLINICAL INDICATORS - SIGNS / SYMPTOMS/ LABS are present in the medical record: Lab Results: 06-07 CREATINE KINASE 728 CK-MB 39.0 ER DX: ACUTE ON CHRONIC RENAL INSUFFICIENCY H&P: MILDLY ELEVATED CK - MOST LIKELY FROM FALL RISK FACTORS H&P: ON FLOOR X 24 HOURS AFTER FALL TREATMENT H&P: TREND CK LABS MAR: D5W IVF -30 TO 5- ZOSYN IV 06-09 / 06-10 THANK YOU, LANIE (This form is maintained as a part of the permanent medical record) 2014 [employer], [employer]. All Rights Reserved Lanie De La Rosa RN, BS [email or web address]
--- NOTE | 2017-06-11 08:50 | PQF ---
KEVEN MARTÍNEZ DR. [id number] CCU-A08 [id number] CLINICAL DOCUMENTATION IMPROVEMENT CLARIFICATION FORM: ICD-10 Updated PLEASE DO AN ADDENDUM TO THE PROGRESS NOTE WITH ANY DOCUMENTATION UPDATES OR ADDITIONS AND CARRY THROUGH TO DC SUMMARY. THANK YOU. DATE: 06-10-17 ATTN: DR. GARCIA Please exercise your independent, professional judgment in responding to the clarification form. Clinical indicators are provided on the bottom of this form for your review Diagnosis: ACUTE RESPIRATORY FAILURE Present on Admission (POA): [ ] Yes [ x ] No [ ] Unable to determine Coding guidelines require hospitals to identify whether a diagnosis was present on admission (POA) or not. To accurately assign the appropriate POA indicator, this information must be clearly documented within the medical record. CLINICAL INDICATORS - SIGNS / SYMPTOMS / LABS ER: O2 SAT 98 ON 3L NC - BREATH SOUNDS DIMINISHED BU LOBES/BLL LOBES ON FLOOR X 24 HOURS AFTER FALL 4-30 H&P: DENIES ANY SOB COLON CONSULT: ADMITTED D/T SOB; 4-30 LARIOS PN: RESPIRATORY FAILURE RISK FACTORS: ER: ON FLOOR X 24 HOURS AFTER FALL H&P: COPD MULTIPLE FALLS TREATMENT: ER: O2 3LNC 4-30 @ 0805 BIPAP MASK ON VENT 4-30 @ 1645 OFF VENT 5-1 @ 1655 THANK YOU, LANIE (This form is maintained as a part of the permanent medical record) 2015 [employer], [employer]. All Rights Reserved Lanie De La Rosa RN, BS [email or web address] Cell [facility]
--- NOTE | 2017-06-11 08:51 | PQF ---
KEVEN MARTÍNEZ DR. [id number] CCU-[id number] CLINICAL DOCUMENTATION IMPROVEMENT CLARIFICATION FORM: ICD-10 Updated PLEASE DO AN ADDENDUM TO THE PROGRESS NOTE WITH ANY DOCUMENTATION UPDATES OR ADDITIONS AND CARRY THROUGH TO DC SUMMARY. THANK YOU. DATE: 06-10-17 ATTN: DR. GARCIA Please exercise your independent, professional judgment in responding to the clarification form. Clinical indicators are provided on the bottom of this form for your review Please check appropriate box(es): [ x ] Sepsis d/t [ ] SIRS due to non-infectious process (please specify etiology) [ ] with organ dysfunction [ ] without organ dysfunction [ ] Severe sepsis with acute organ dysfunction of: (Examples: respiratory failure, encephalopathy, acute kidney failure, other) [ ] Localized infection without sepsis [ ] Other diagnosis [ ] Unable to determine In addition, please specify: Present on Admission (POA): [ ] Yes [ x ] No [ ] Unable to determine For continuity of documentation, please document condition throughout progress notes and discharge summary. Thank You. 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 All Rights Reserved Lanie De La Rosa RN, BS [email or web address] [facility]
[2017-06-11] MEDS: Vancomycin HCl 750 MG in Sodium Chloride 0.9% 250 ML 250 ML IVPB SCH (10:22)
[2017-06-11 11:27] LABS: pH, Arterial 7.31 (7.35-7.45)
[2017-06-11 11:28] LABS: Actual Bicarbonate (HCO3a) 29.5 mEq/L (22-26); Base Excess (BEa) 2.3 mEq/L (0 (+/-) 2.5); CO2 Tension 60.6 mmHg (35.0-45.0); Calcium, Ionized 1.2 mmol/L (1.12-1.30); Hematocrit-ABG 33.5 % (42.0-52.0); Hemoglobin (Hb) 9.8 g/dL (14.0-18.0); Puncture Site RRA
[2017-06-11] MEDS: Sevelamer Carbonate 800 MG TAB PO SCH ×3 (12:14→16:27)
[2017-06-11] MEDS: Heparin 5,000 UNITS/ML VIAL SC SCH ×3 (12:16→20:39)
[2017-06-11] MEDS: Calcitriol 0.25 MCG CAP PO SCH (12:21)
[2017-06-11] MEDS: Aspirin 81 mg Enteric Coated Tablet PO SCH (12:21)
--- NOTE | 2017-06-11 16:06 | PDOC.PN ---
- Subjective Encounter Start Date: 06/11/17 Encounter Start Time: 11:30 Subjective: pt in dialysis very drowsy, arousable on sternum rub - Objective Vital Signs & Weight: Vital Signs (12 hours) Temp Pulse Resp BP Pulse Ox 06/11/17 13:52 88 18 100 06/11/17 12:02 98.8 F 85 15 91 L 06/11/17 04:00 99.8 F H 94 20 155/70 H 98 Weight Admit Weight 216 lb Weight 213 lb 6.519 oz Most Recent Monitor Data Heart Rate from ECG 88 NIBP 131/64 NIBP BP-Mean 80 Respiration from ECG 19 SpO2 96 I&O: 06/10/17 06/11/17 06/12/17 06:59 06:59 06:59 Intake Total 1784 480 Output Total 0 0 Balance 1784 480 Result Diagrams: 06/11/17 07:47 06/11/17 07:47 Additional Labs: Accuchecks 06/11/17 06/11/17 06/11/17 12:29 11:16 05:59 POC Glucose 103 105 136 H 06/10/17 20:56 POC Glucose 170 H Phys Exam - Physical Examination Neck: no nodes, no JVD, supple, full ROM Respiratory: no wheezing, no rales, no rhonchi, wheezing present, clear to auscultation bilateral Cardiovascular: RRR, no significant murmur, no rub, gallop, irregular Gastrointestinal: soft, non-tender, no distention, positive bowel sounds Dx/Plan - Plan 1. Acute hypoxic/hypercapnic resp failure / Toxic Metabolic Encephalopathy/ Hypoglycemia 2. ESRD on dialysis with hyperkalemia 3. SASHA on CPAP 4. HLD 5) fall PLAN: * pt today very drowsy could not arouse pt with sternum rub in dialysis did abg pt's co2 was 60. pt was on 2L of oxygen. His oxygen is 98%. Instructed nurse to put pt on oxygen only if his oxygen sat <89%. upon my second visit pt more awake and coherent. will get PT to evaluate pt and possible discharge to inpatient rehab. * * . Review of Systems - Review of Systems Cardiovascular: negative: chest pain, palpitations, orthopnea, paroxysmal nocturnal dyspnea, edema, light headedness, other Other: unable to obtain - Medications/Allergies Allergies/Adverse Reactions: Allergies Allergy/AdvReac Type Severity Reaction Status Date / Time No Known Drug Allergies Allergy Verified 06/08/17 01:09 Medications: Current Medications Acetaminophen (Tylenol) 650 mg PO Q4H PRN PRN Reason: Headache/Fever or Pain Last Admin: 06/10/17 23:55 Dose: 650 mg Albuterol/Ipratropium (Duoneb) 3 ml NEB [id number] [facility] Last Admin: 06/11/17 13:52 Dose: 3 ml Aspirin (Ecotrin) 81 mg PO DAILY [facility] Last Admin: 06/11/17 12:21 Dose: 81 mg Calcitriol (Rocaltrol) 0.5 mcg PO DAILY [facility] Last Admin: 06/11/17 12:21 Dose: 0.5 mcg Dextrose/Water (Dextrose 50%) 25 gm SLOW IVP PRN PRN PRN Reason: Hypoglycemia Last Admin: 06/08/17 20:04 Dose: 25 gm Epoetin Graham (Procrit) 7,500 units SC Q7D [facility] Last Admin: 06/10/17 16:03 Dose: 7,500 units Gabapentin (Neurontin) 300 mg PO Q2DAYS [facility] Last Admin: 06/10/17 00:20 Dose: 300 mg Glucagon (Glucagon) 1 mg IM PRN PRN PRN Reason: Hypoglycemia Last Admin: 06/08/17 14:36 Dose: 1 mg Heparin Sodium (Porcine) (Heparin) 5,000 units SC TID [facility] Last Admin: 06/11/17 12:16 Dose: Not Given Dextrose/Water (D5w) 1,000 mls @ 0 mls/hr IV .Q0M PRN; As Directed PRN Reason: Hypoglycemia Last Admin: 06/08/17 06:15 Dose: 1,000 mls Piperacillin Sod/Tazobactam (Sod 2.25 gm/ Sodium Chloride) 100 mls @ 200 mls/ hr IVPB 0400,1600 [facility] Last Admin: 06/11/17 04:57 Dose: 100 mls Vancomycin HCl 1.25 gm/ Sodium (Chloride) 250 mls @ 166.667 mls/hr IVPB WILLCALL [facility] Vancomycin HCl 1 gm/ Device 200 mls @ 200 mls/hr IVPB [facility] Vancomycin HCl 750 mg/ Sodium (Chloride) 250 mls @ 250 mls/hr IVPB [facility] Last Admin: 06/11/17 10:22 Dose: 250 mls Vancomycin HCl 500 mg/ Sodium (Chloride) 100 mls @ 100 mls/hr IVPB [facility] Insulin Human Lispro (Humalog) 0 units SC .MILD SLIDING SCALE PRN PRN Reason: Mild Correctional Scale Last Admin: 06/10/17 17:23 Dose: 3 unit/kg Hold Vancomycin For (Level >20) 0 each FS .AT DIALYSIS [facility] Sevelamer Carbonate (Renvela) 1,600 mg PO TID-[facility] Last Admin: 06/11/17 12:20 Dose: 1,600 mg Sodium Chloride (Flush - Normal Saline) 10 ml IVF PRN PRN PRN Reason: Saline Flush
--- NOTE | 2017-06-11 17:48 | PRG ---
DATE OF SERVICE: 06/11/2017 SERVICE: Pulmonary Medicine. INTERVAL HISTORY: Earlier, the patient had a sleeping spell. He ended up getting a sternal rub, but was poorly responsive. An ABG demonstrated minimal hypercapnia. On their way, after 18 minutes of stimulation, the patient simply woke up and he was back to his usual state. He denies any current sh ortness of breath, fevers, chills, nausea or vomiting. He thinks that everybody was overreacting. R ight now, he is awake and conversive. He is not falling asleep. He has no difficulties with breathi ng. PHYSICAL EXAMINATION: VITAL SIGNS: Afebrile, currently with a T-max of 99.8. Pulse 94, blood pressure 155/70, respiration s 20, saturation 98% on 2 liters nasal cannula. GENERAL: The patient is awake and alert, in no apparent distress. LUNGS: Decent air entry. No prolonged expiratory phase or wheezing. HEART: Normal rate, regular. ABDOMEN: Soft, nontender, nondistended. Bowel sounds are positive. MUSCULOSKELETAL: No cyanosis or clubbing. There is no pitting in the bilateral lower extremities. NEUROLOGIC: Grossly nonfocal. LABORATORY DATA: WBC 6.5, hemoglobin 9.9, platelets 184,000. PH 7.31, pCO2 61, pO2 of 98. Creatini ne 8.45 and down trending. BUN 42. Basic metabolic profile is otherwise unremarkable. Blood cultur e is growing Strep viridans in 1 out of 2. Sensitivities currently pending. ASSESSMENT: 1. Respiratory failure secondary to metabolic encephalopathy, resolved. 2. Hypoglycemia, resolved. 3. Severe sepsis. 4. Bacteremia secondary to Strep viridans. 5. End-stage renal disease. PLAN: We will continue our antibiotics, and other supportive measures. I will continue to follow al garland because if this were to dealt today. He will need to undergo outpatient evaluation for obstructi ve sleep apnea. I will have him return to clinic with me in 2-4 weeks in the outpatient setting to a rrange for this.
[2017-06-11] MEDS: HumaLOG 300 UNITS/3 ML VIAL SC PRN (18:26)
[2017-06-12] MEDS: Acetaminophen 325 MG TAB PO PRN (00:50)
[2017-06-12] MEDS: Gabapentin 300 MG CAP PO SCH (00:50)
--- NOTE | 2017-06-12 03:03 | CON ---
DATE OF CONSULTATION: 06/11/2017 HISTORY OF PRESENT ILLNESS: A 62-year-old with history of type 2 diabetes mellitus, who replaces his kidneys with peritoneal dialysis. Mr. Monge was admitted in April of this year because of generalized weakness. He had missed hemodialysis and had life-threatening hyperkalemia. Previously, he had been treated with peritoneal dialysis, but developed an infection, which required removal of peritoneal dialysis catheter and had been using a right IJ cuffed tunneled dialysis catheter for dialysis. This had been placed in [place] at [facility]. He also developed an incisional hernia and had a Juan Carlos fistula placed at the [facility] more than 2 or 3 years before, which was never adequate for dialysis. Unfortunately, this admission at the beginning of April, the patient had a peripheral IV access placed in the right upper extremity, which led to thrombosis of his fistula. The patient during this admission had repair of his incisional hernia and had another peritoneal dialysis catheter placed. During this admission in April, he had 1 out of 2 blood cultures positive for coagulase-negative staph. He was given vancomycin post hemodialysis. He was then transferred back to the rehab unit. The patient had restarted the peritoneal dialysis in the home setting. He still had the tunneled catheter in the right IJ position. He had another fistula placed in the left upper extremity and apparently that is not yet mature for dialysis yet. Unfortunately, the patient sustained a fall while trying to get up at night. He tripped over his peritoneal dialysis catheters or tubing, had to call EMS, and was brought to the hospital and found to be hypoglycemic. A CT of the head did not show any fractures. X-rays of the appendicular structures with no fracture either. Initial BP was 143/97, pulse 83, respirations 16, temperature 98.3. He was easily arousable, but was quite drowsy. Lungs were clear to auscultation. Heart exam was normal. There was no jugular vein distention. Abdomen is soft without tenderness. The PD catheter exit site appeared normal. Initial white cell count 11,000, hemoglobin 11, platelets 243 with 88% neutrophils. Sodium 130, creatinine 9.67. Liver profile, AST 47 and ALT 25. CK was 728, albumin 3.7. Chest x-ray showed bilaterally elevated diaphragm, probably from peritoneal dialysis without infiltrates. CK was elevated at 565. The following day after admission , he developed temperature elevation up to 101.5 and blood culture sets were taken. The patient was given piperacillin and tazobactam and vancomycin. Now, we have 1 out of 2 sets of blood cultures with viridans streptococcus. Mr. Monge appears chronically ill, but is quite pleasant. He denies any headaches. No change in visual symptoms, sore throat, odynophagia, dysphagia. No back pain. No cough or chest pain. No abdominal pain. No pain at the IJ catheter exit site in the right side of the neck. No joint symptoms. PAST MEDICAL HISTORY: Type 2 diabetes; end-stage renal disease, on hemodialysis through a peritoneal catheter, previously with hemodialysis catheter in the tunneled right IJ position, which is still in place for the past few months, and he does have a fistula in the left upper extremity which appears to be pretty good right now. Not clear if it would be mature enough for hemodialysis. The patient has a history of hypertension as well, hyperlipidemia. PAST SURGICAL HISTORY: AV fistula placement in both right and left upper extremities; tunneled dialysis catheter placement; peritoneal dialysis catheter placement, removal, and then replacement; cholecystectomy; hernia repair surgery. SOCIAL HISTORY: Drinks occasionally. Never a smoker. ALLERGIES: None. CURRENT MEDICATIONS: DuoNeb, Ecotrin, Rocaltrol, Procrit, Neurontin, glucagon, insulin, Zosyn, vancomycin. FAMILY HISTORY: Hypertension. PHYSICAL EXAMINATION: VITAL SIGNS: T-max 101.5 about two days ago, currently 99.8; BP 120/59; pulse 88; respirations 18; O2 sat 100%. SKIN: Shows the previously accessed right-sided IJ hemodialysis catheter. He also has a PD catheter in the left side of the abdomen with normal-appearing exit site, chronically ill appearing. No other areas of skin breakdown. HEENT: Ocular movements are conjugate. Intraocular not as patent on the left compared to the right. Pupils are reactive on the right, less reactive on the left. Oral cavity with numerous missing teeth. Oral mucosa is somewhat dry. NECK: Supple. No jugular vein distention. LUNGS: With symmetric air entry. CARDIOVASCULAR: S1, S2 with a soft aortic murmur. Regular rate. ABDOMEN: Soft with no distention or tenderness. No organomegaly or ascites. No suprapubic distention. EXTREMITIES: No joint inflammatory activity. Pulses are 1+ in dorsalis pedis, diminished, faintly palpable. Posterior tibialis is also faintly palpable. Popliteals are 2+ at least. NEUROLOGIC: The patient's cognitive function is okay, except for his recollection, which is somewhat limited and he tends to make mistakes in the temporal order of events. LABORATORY DATA: The white cell count is down to 6.5, hemoglobin 9.9, platelets 184. Sodium 132, creatinine 20, AST 47, ALT 25, CK 728. RADIOLOGY STUDIES: Chest x-ray, no acute interval change in the appearance of the chest. ASSESSMENT: 1. End-stage renal disease secondary to type 2 diabetes mellitus. 2. Peritoneal dialysis with recently re-inserted peritoneal dialysis catheter with resumption of continuous ambulatory peritoneal dialysis. 3. In situ triple-lumen hemodialysis catheter in right side of the neck. 4. Fall, which appears to have been accidental; however, the patient on arrival had evidence of neutrophilia and developed fever, and was noticed with bacteremia secondary to Streptococcus viridans 1 out of 2 sets. DISCUSSION: The differential diagnosis includes colonization of the hemodialysis catheter in place versus contaminant versus bacteremia from an alternate source. The absence of growth in the second bottle would favor an alternate source versus contamination of the sample. It does not appear to be any of the usually pathogenic viridans streptococci have been identified in the sample, so that would increase the likelihood of this being contamination. Ideally, one would like to remove the hemodialysis catheter and resume the use of peritoneal dialysis catheter for dialysis or the AV fistula L upper extremity. It looks like he is going to a rehab and will continue to be hemodialyzed for the time being. The left-sided AV fistula may be mature enough to resume hemodialysis through that fistula or not and we will need an assessment by the dialysis nurse. If that is the case, then I would encourage removal of the current right-sided neck hemodialysis catheter. Since that he did have a fever and neutrophilia, we will have to treat this strep viridans bacteremia and may continue vancomycin sliding scale for another week or so approximately. LAVELLD
[2017-06-12] MEDS: Piperacillin/Tazobactam 2.25 GM in Sodium Chloride 0.9% 100 ML IVPB SCH ×2 (04:13→15:09)
[2017-06-12 05:13] LABS: #Eosinphils 0.4 thou/uL (0.0-0.7); #Lymphocytes 0.9 thou/uL (1.20-3.40); #Monocytes 0.7 thou/uL (0.11-0.59); #Neutrophils 6.4 thou/uL (1.40-6.50); %Basophils 0.2 % (0.0-1.0); %Eosinophils 4.6 % (0.0-10.0); %Lymphocytes 10.3 % (21.0-51.0); %Monocytes 8.4 % (0.0-10.0); %Neutrophils 76.4 % (42.0-75.0); Hemoglobin 10.2 g/dL (14.0-18.0); Mean Corpuscular HGB CONC 31.1 g/dL (32.0-36.0); Mean Corpuscular Hemoglobin 31.4 pg (27.0-31.0); Mean Platelet Volume 7.6 fL (7.4-10.4); Platelet Count 198 thou/uL (130-400); RBC Distribution Width 15.7 % (11.5-14.5); Red Blood Cell (RBC) Count 3.25 mill/uL (4.70-6.10); White Blood Cell (WBC) Count 8.3 thou/uL (4.8-10.8)
[2017-06-12 05:25] LABS: Anion Gap 14 mmol/L (10-20); BUN (Urea Nitrogen) 28 mg/dL (8.4-25.7); Calc. Creatinine Clearance 16 mL/min (70-130); Calcium 9.3 mg/dL (7.8-10.44); Carbon Dioxide 26 mmol/L (23-31); Chloride 99 mmol/L (98-107); Estimated GFR-MDRD 11; Glucose 127 mg/dL (80-115); Sodium 135 mmol/L (136-145)
[2017-06-12] MEDS: Aspirin 81 mg Enteric Coated Tablet PO SCH (08:43)
[2017-06-12] MEDS: Calcitriol 0.25 MCG CAP PO SCH (08:43)
[2017-06-12] MEDS: Sevelamer Carbonate 800 MG TAB PO SCH ×3 (08:43→16:26)
[2017-06-12] MEDS: Heparin 5,000 UNITS/ML VIAL SC SCH ×3 (08:43→20:35)
--- NOTE | 2017-06-12 09:36 | PRG ---
DATE OF SERVICE: 06/12/2017. SUBJECTIVE: Mr. Monge is a 62-year-old black male being followed by the [facility] for his maint enance hemodialysis. He underwent dialysis yesterday without any difficulty. ID has been consulted due to his bacteremia. The concern is his hemodialysis catheter. We are still unable to use his current AV fistula. Since this patient might be going to a halfway facility or assisted he could not go back to the peritoneal dialysis. He may need to be on backup hemodialysis for quite some time. This morning he has no new complaints. He feels tired and lethargic. PHYSICAL EXAMINATION: VITAL SIGNS: Blood pressure is 153/72, heart rate 94, respiratory 26, pulse ox 97%, temperature 98.8 . GENERAL: Awake, alert, comfortable, not in overt distress. SKIN: Adequate turgor. HEENT: He has slightly pale conjunctivae, anicteric sclerae. NECK: No neck mass, no carotid bruits, no JVD. CHEST: No deformities. LUNGS: Clear breath sounds, no wheezing, no crackles. HEART: Normal sinus rhythm. No murmur, no gallops or rubs. ABDOMEN: Globular, soft, nontender. No masses. Positive for PD catheter. EXTREMITIES: No edema. MEDICATIONS: 06/12/2017 - Reviewed. LABORATORY: 06/12/2017 - White count 8.3, hemoglobin 10.2, hematocrit 32.8. Sodium 135, potassium 4 , chloride 99, carbon dioxide 26, BUN 28, creatinine 6.38, glucose 127, calcium 9.3. ASSESSMENT AND PLAN: 1. End-stage renal disease, stable. We will continue current maintenance hemodialysis of Thursday, , and Thursday - again fluid removal only as tolerated by the patient. 2. Bacteremia - Strep viridans - on empiric IV antibiotics. ID following. Their recommendation is eventual removal of the hemodialysis catheter. 3. Anemia. We are currently continuing with the patient's weekly Epogen. Awaiting assisted placement.
--- NOTE | 2017-06-12 15:24 | PRG ---
DATE OF SERVICE: 06/12/2017 SERVICE: Pulmonary Medicine. INTERVAL HISTORY: The patient is doing fine from cardiovascular and respiratory standpoint. He annita es any current chest pain, fevers, chills, nausea or vomiting. I woke him up from sleep. Before I w navdeep him up, he was demonstrating horrendous obstructive events. When I woke him up, he was answering questions with yes and no appropriately. Eventually, he drifts off back to sleep. He indicates parminder t this is a normal behavior for him. 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 As such, he sleeps very heavi ly during the daytime and frequently he spends all night awake. PHYSICAL EXAMINATION: VITAL SIGNS: Afebrile, pulse 83, blood pressure 165/77, respirations 20, saturation 97% on half lite r nasal cannula. GENERAL: The patient is awake, alert, no apparent distress. LUNGS: Excellent air entry. There is no prolonged expiratory phase or wheezing appreciated. HEART: Normal rate, regular. ABDOMEN: Soft, nontender, nondistended. Bowel sounds are positive. MUSCULOSKELETAL: No cyanosis or clubbing. There is no pitting in the bilateral lower extremities. NEUROLOGIC: Grossly nonfocal. LABORATORY DATA: One out of two blood cultures is growing strep. The other blood culture is negativ e x2. WBC 8.3, hemoglobin 10.2, and platelets 198,000. Creatinine 6.38 and down trending, BUN 28. Basic metabolic profile is otherwise unremarkable. Random vancomycin 12.2. ASSESSMENT AND PLAN: 1. Respiratory failure secondary to metabolic encephalopathy, resolved. 2. Hypoglycemia, resolved. 3. Severe sepsis, resolved. 4. Bacteremia, secondary to Strep viridans, contaminant versus true. 5. End-stage renal disease. DISCUSSION AND PLAN: Agree that we were going to have to treat this thing like it is real given his hypoglycemia, fever, white blood cell count, and sepsis. Antibiotics and duration per Dr. Perez. He will need an outpatient polysomnogram, because of obstructive sleep apnea. I will have him return t o clinic to see me in roughly 2-3 weeks in the outpatient setting to arrange for this. At this point , there is no further requirements for inpatient Pulmonary or Critical Care opinion, and I will sign off. Please call with additional questions or concerns.
--- NOTE | 2017-06-12 15:47 | PDOC.PN ---
- Subjective Encounter Start Date: 06/12/17 Encounter Start Time: 13:00 Subjective: pt asleep easily arousable, stated he did not sleep well last night - Objective Vital Signs & Weight: Vital Signs (12 hours) Temp Pulse Pulse Resp BP BP Pulse Ox 06/12/17 14:38 89 18 100 06/12/17 11:25 98.6 F 83 20 165/77 H 97 06/12/17 11:03 91 16 96 06/12/17 09:32 92 152/72 H 06/12/17 08:22 94 16 97 06/12/17 08:00 98.8 F 94 26 H 153/72 H 94 L 06/12/17 04:00 99.1 F 92 16 155/79 H 96 Pulse Ox 06/12/17 14:38 06/12/17 11:25 06/12/17 11:03 06/12/17 09:32 99 06/12/17 08:22 06/12/17 08:00 06/12/17 04:00 Weight Admit Weight 216 lb Weight 213 lb 6.519 oz Most Recent Monitor Data Heart Rate from ECG 88 NIBP 131/64 NIBP BP-Mean 80 Respiration from ECG 19 SpO2 96 I&O: 06/11/17 06/12/17 06/13/17 06:59 06:59 06:59 Intake Total 480 820 Output Total 0 3700 Balance 480 -2880 Result Diagrams: 06/12/17 04:28 06/12/17 04:28 Additional Labs: Accuchecks 06/12/17 06/12/17 06/11/17 10:02 06:13 20:56 POC Glucose 124 H 132 H 178 H 06/11/17 16:10 POC Glucose 158 H Phys Exam - Physical Examination HEENT: PERRLA, moist MMs, sclera anicteric, TM's clear, oral pharynx no lesions , 2+ tonsils Neck: no nodes, no JVD, supple, full ROM Respiratory: no wheezing, no rales, no rhonchi, wheezing present, clear to auscultation bilateral Cardiovascular: RRR, no significant murmur, no rub, gallop, irregular Gastrointestinal: soft, non-tender, no distention, positive bowel sounds Dx/Plan - Plan 1. Acute hypoxic/hypercapnic resp failure / Toxic Metabolic Encephalopathy/ Hypoglycemia 2. ESRD on dialysis with hyperkalemia 3. SASHA on CPAP 4. HLD 5) fall PLAN: * pt today very drowsy could not arouse pt with sternum rub in dialysis did abg pt's co2 was 60. pt was on 2L of oxygen. His oxygen is 98%. Instructed nurse to put pt on oxygen only if his oxygen sat <89%. upon my second visit pt more awake and coherent. will get PT to evaluate pt and possible discharge to inpatient rehab. * * 06/12 spoke with casemanager pt to be evaluated for inpatient rehab. spoke with ID pt will be on vanco. unclear if this is a contaminant? * . Review of Systems - Review of Systems ENT: negative: Ear Pain, Ear Discharge, Nose Pain, Nose Discharge, Nose Congestion, Mouth Pain, Mouth Swelling, Throat Pain, Throat Swelling, Other Respiratory: negative: Cough, Dry, Shortness of Breath, Hemoptysis, SOB with Excertion, Pleuritic Pain, Sputum, Wheezing Cardiovascular: negative: chest pain, palpitations, orthopnea, paroxysmal nocturnal dyspnea, edema, light headedness, other Gastrointestinal: negative: Nausea, Vomiting, Abdominal Pain, Diarrhea, Constipation, Melena, Hematochezia, Other Genitourinary: negative: Dysuria, Frequency, Incontinence, Hematuria, Retention , Other Musculoskeletal: negative: Neck Pain, Shoulder Pain, Arm Pain, Back Pain, Hand Pain, Leg Pain, Foot Pain, Other - Medications/Allergies Allergies/Adverse Reactions: Allergies Allergy/AdvReac Type Severity Reaction Status Date / Time No Known Drug Allergies Allergy Verified 06/08/17 01:09 Medications: Current Medications Acetaminophen (Tylenol) 650 mg PO Q4H PRN PRN Reason: Headache/Fever or Pain Last Admin: 06/12/17 00:50 Dose: 650 mg Albuterol/Ipratropium (Duoneb) 3 ml NEB [id number] [facility] Last Admin: 06/12/17 14:38 Dose: 3 ml Aspirin (Ecotrin) 81 mg PO DAILY [facility] Last Admin: 06/12/17 08:43 Dose: 81 mg Calcitriol (Rocaltrol) 0.5 mcg PO DAILY [facility] Last Admin: 06/12/17 08:43 Dose: 0.5 mcg Dextrose/Water (Dextrose 50%) 25 gm SLOW IVP PRN PRN PRN Reason: Hypoglycemia Last Admin: 06/08/17 20:04 Dose: 25 gm Epoetin Graham (Procrit) 7,500 units SC Q7D [facility] Last Admin: 06/10/17 16:03 Dose: 7,500 units Gabapentin (Neurontin) 300 mg PO Q2DAYS [facility] Last Admin: 06/12/17 00:50 Dose: 300 mg Glucagon (Glucagon) 1 mg IM PRN PRN PRN Reason: Hypoglycemia Last Admin: 06/08/17 14:36 Dose: 1 mg Heparin Sodium (Porcine) (Heparin) 5,000 units SC TID [facility] Last Admin: 06/12/17 15:09 Dose: 5,000 units Dextrose/Water (D5w) 1,000 mls @ 0 mls/hr IV .Q0M PRN; As Directed PRN Reason: Hypoglycemia Last Admin: 06/08/17 06:15 Dose: 1,000 mls Piperacillin Sod/Tazobactam (Sod 2.25 gm/ Sodium Chloride) 100 mls @ 200 mls/ hr IVPB 0400,1600 [facility] Last Admin: 06/12/17 15:09 Dose: 100 mls Vancomycin HCl 1.25 gm/ Sodium (Chloride) 250 mls @ 166.667 mls/hr IVPB [facility] Vancomycin HCl 1 gm/ Device 200 mls @ 200 mls/hr IVPB [facility] Vancomycin HCl 750 mg/ Sodium (Chloride) 250 mls @ 250 mls/hr IVPB [facility] Last Admin: 06/11/17 10:22 Dose: 250 mls Vancomycin HCl 500 mg/ Sodium (Chloride) 100 mls @ 100 [facility]ls/[facility] Insulin Human Lispro (Humalog) 0 units SC .MILD SLIDING SCALE PRN PRN Reason: Mild Correctional Scale Last Admin: 06/11/17 18:26 Dose: 2 unit/kg Hold Vancomycin For (Level >20) 0 each FS .AT DIALYSIS [facility] Sevelamer Carbonate (Renvela) 1,600 mg PO TID-[facility] Last Admin: 06/12/17 11:11 Dose: 1,600 mg Sodium Chloride (Flush - Normal Saline) 10 ml IVF PRN PRN PRN Reason: Saline Flush
[2017-06-13] MEDS: Piperacillin/Tazobactam 2.25 GM in Sodium Chloride 0.9% 100 ML IVPB SCH (03:51)
[2017-06-13] MEDS: Acetaminophen 325 MG TAB PO PRN ×2 (05:57→23:13)
[2017-06-13 07:35] LABS: Vancomycin, Random 13.5 ug/mL (See Comment)
[2017-06-13] MEDS: Vancomycin HCl 750 MG in Sodium Chloride 0.9% 250 ML 250 ML IVPB SCH (10:09)
--- NOTE | 2017-06-13 10:35 | PRG ---
DATE OF SERVICE: 06/13/2017 SERVICE: Renal Medicine. SUBJECTIVE: Mr. Monge is a 62-year-old black male with known history of ESRD and being followed by the Renal Service for his maintenance hemodialysis. We are currently awaiting prison placement with this patient. He still wants to go back to [facility]. I felt that at this time, he could not go back to [facility] and we will continue his backup hemodialysis. He voices no new complaints. His insomnia is a little better. No complaints of chest pain or shortness of breath. PHYSICAL EXAMINATION: VITAL SIGNS: Blood pressure is 134/71, heart rate 82, respiratory rate 20, pulse ox 98%. GENERAL: Noted to be awake, comfortable, not in overt distress. SKIN: Adequate turgor. HEENT: He has slightly pale conjunctivae, anicteric sclerae. NECK: No neck mass, no carotid bruits, no JVD. CHEST: No deformities. LUNGS: Decreased breath sounds. HEART: Normal sinus rhythm. No murmur, no gallops, no rubs. ABDOMEN: Globular, soft, nontender, no masses. EXTREMITIES: Positive for edema. Please note, he has a PD catheter in the abdomen and a fistula in the left upper extremity. MEDICATIONS: Of 06/13/2017 was reviewed. LABORATORY DATA: Of 06/12/2017, white count 8.3, hemoglobin 10.2. Sodium 135, potassium 4, chloride 99, carbon dioxide 26, BUN 20, creatinine 6.38, glucose 127, calcium 9.3. ASSESSMENT AND PLAN: 1. End-stage renal disease, stable. Continuing current hemodialysis regimen. Tolerating said treat ment. I am attempting between 4 and 5 liters of fluid as tolerated. I am at the bedside supervising his dialysis. 2. Anemia, continuing weekly Epogen. 3. Bacteremia. The patient is currently on IV antibiotics. Infectious Disease following.
[2017-06-13] MEDS ORDERED: Heparin 1,000 UNITS/ML VIAL ONE (11:11)
[2017-06-13] MEDS: Calcitriol 0.25 MCG CAP PO SCH (12:55)
[2017-06-13] MEDS: Sevelamer Carbonate 800 MG TAB PO SCH ×3 (12:55→17:57)
[2017-06-13] MEDS: Heparin 5,000 UNITS/ML VIAL SC SCH ×3 (12:55→20:50)
[2017-06-13] MEDS: Aspirin 81 mg Enteric Coated Tablet PO SCH (12:55)
--- NOTE | 2017-06-13 14:34 | PRG ---
DATE OF SERVICE: 06/13/2017 SUBJECTIVE: Sitting on the side of the bed. OBJECTIVE: VITAL SIGNS: His sats are 90% on room air, temperature 98, respirations 20, blood pressure 130/71. RESPIRATORY: He denies any difficulty breathing, coughing, or wheezing. Chest reveals decreased kelsey ath sounds. CARDIAC: Normal S1, S2. No gallops. ABDOMEN: Soft. No masses. IMPRESSION: 1. End-stage renal disease, on dialysis. 2. Sepsis. He appears to be stable. Continue PT and supportive care.
--- NOTE | 2017-06-13 15:12 | PDOC.PN ---
- Subjective Encounter Start Date: 06/13/17 Encounter Start Time: 13:00 Subjective: pt up in bed upset about his current situation and -: his family issues. - Objective Vital Signs & Weight: Vital Signs (12 hours) Temp Pulse Resp BP BP Pulse Ox 06/13/17 12:34 98.4 F 85 16 135/59 L 97 06/13/17 12:30 98.4 F 85 16 97 06/13/17 07:21 99 06/13/17 07:06 82 20 98 06/13/17 03:45 98.8 F 86 13 134/71 96 Weight Admit Weight 216 lb Weight 213 lb 6.519 oz Most Recent Monitor Data Heart Rate from ECG 88 NIBP 131/64 NIBP BP-Mean 80 Respiration from ECG 19 SpO2 96 I&O: 06/12/17 06/13/17 06/14/17 06:59 06:59 06:59 Intake Total 820 720 Output Total 3700 Balance -2880 720 Result Diagrams: 06/12/17 04:28 06/12/17 04:28 Additional Labs: Accuchecks 06/13/17 06/13/17 06/13/17 12:04 05:49 05:12 POC Glucose 83 95 93 06/12/17 06/12/17 20:44 16:45 POC Glucose 181 H 129 H Phys Exam - Physical Examination HEENT: PERRLA, moist MMs, sclera anicteric, TM's clear, oral pharynx no lesions , 2+ tonsils Neck: no nodes, no JVD, supple, full ROM mild crackles to bases Cardiovascular: RRR, no significant murmur, no rub, gallop, irregular Gastrointestinal: soft, non-tender, no distention, positive bowel sounds mild lower ext edema Neurological: non-focal, normal sensation, moves all 4 limbs Dx/Plan - Plan 1. Acute hypoxic/hypercapnic resp failure / Toxic Metabolic Encephalopathy/ Hypoglycemia 2. ESRD on dialysis with hyperkalemia 3. SASHA on CPAP 4. HLD 5) fall PLAN: * pt today very drowsy could not arouse pt with sternum rub in dialysis did abg pt's co2 was 60. pt was on 2L of oxygen. His oxygen is 98%. Instructed nurse to put pt on oxygen only if his oxygen sat <89%. upon my second visit pt more awake and coherent. will get PT to evaluate pt and possible discharge to inpatient rehab. * * 06/12 spoke with casemanager pt to be evaluated for inpatient rehab. spoke with ID pt will be on vanco. unclear if this is a contaminant? * 06/13 inpatient rehab to evaluate pt. pt will continue iv vanco on sliding scale for a week. Recommend removal of the right tunnel cath in the future. * . Review of Systems - Review of Systems Eyes: negative: Pain, Vision Change, Conjunctivae Inflammation, Eyelid Inflammation, Redness, Other ENT: negative: Ear Pain, Ear Discharge, Nose Pain, Nose Discharge, Nose Congestion, Mouth Pain, Mouth Swelling, Throat Pain, Throat Swelling, Other Respiratory: negative: Cough, Dry, Shortness of Breath, Hemoptysis, SOB with Excertion, Pleuritic Pain, Sputum, Wheezing Cardiovascular: negative: chest pain, palpitations, orthopnea, paroxysmal nocturnal dyspnea, edema, light headedness, other Gastrointestinal: negative: Nausea, Vomiting, Abdominal Pain, Diarrhea, Constipation, Melena, Hematochezia, Other Genitourinary: negative: Dysuria, Frequency, Incontinence, Hematuria, Retention , Other Musculoskeletal: negative: Neck Pain, Shoulder Pain, Arm Pain, Back Pain, Hand Pain, Leg Pain, Foot Pain, Other - Medications/Allergies Allergies/Adverse Reactions: Allergies Allergy/AdvReac Type Severity Reaction Status Date / Time No Known Drug Allergies Allergy Verified 06/08/17 01:09 Medications: Current Medications Acetaminophen (Tylenol) 650 mg PO Q4H PRN PRN Reason: Headache/Fever or Pain Last Admin: 06/13/17 05:57 Dose: 650 mg Albuterol/Ipratropium (Duoneb) 3 ml NEB [id number] [facility] Last Admin: 06/13/17 11:12 Dose: Not Given Aspirin (Ecotrin) 81 mg PO DAILY [facility] Last Admin: 06/13/17 12:55 Dose: 81 mg Calcitriol (Rocaltrol) 0.5 mcg PO DAILY [facility] Last Admin: 06/13/17 12:55 Dose: 0.5 mcg Dextrose/Water (Dextrose 50%) 25 gm SLOW IVP PRN PRN PRN Reason: Hypoglycemia Last Admin: 06/08/17 20:04 Dose: 25 gm Epoetin Graham (Procrit) 7,500 units SC Q7D [facility] Last Admin: 06/10/17 16:03 Dose: 7,500 units Gabapentin (Neurontin) 300 mg PO Q2DAYS [facility] Last Admin: 06/12/17 00:50 Dose: 300 mg Glucagon (Glucagon) 1 mg IM PRN PRN PRN Reason: Hypoglycemia Last Admin: 06/08/17 14:36 Dose: 1 mg Heparin Sodium (Porcine) (Heparin) 5,000 units SC TID [facility] Last Admin: 06/13/17 12:55 Dose: 5,000 units Dextrose/Water (D5w) 1,000 mls @ 0 mls/hr IV .Q0M PRN; As Directed PRN Reason: Hypoglycemia Last Admin: 06/08/17 06:15 Dose: 1,000 mls Piperacillin Sod/Tazobactam (Sod 2.25 gm/ Sodium Chloride) 100 mls @ 200 mls/ hr IVPB 0400,1600 [facility] Last Admin: 06/13/17 03:51 Dose: 100 mls Vancomycin HCl 1.25 gm/ Sodium (Chloride) 250 mls @ 166.667 mls/hr IVPB WILLCALL [facility] Vancomycin HCl 1 gm/ Device 200 mls @ 200 mls/hr IVPB WILLCALL [facility] Vancomycin HCl 750 mg/ Sodium (Chloride) 250 mls @ 250 mls/hr IVPB [facility] Last Admin: 06/13/17 10:09 Dose: 250 mls Vancomycin HCl 500 mg/ Sodium (Chloride) 100 mls @ 100 mls/hr IVPB WILLCALL [facility] Insulin Human Lispro (Humalog) 0 units SC .MILD SLIDING SCALE PRN PRN Reason: Mild Correctional Scale Last Admin: 06/11/17 18:26 Dose: 2 unit/kg Hold Vancomycin For (Level >20) 0 each FS .AT DIALYSIS [facility] Sevelamer Carbonate (Renvela) 1,600 mg PO TID-[facility] Last Admin: 06/13/17 12:55 Dose: 1,600 mg Sodium Chloride (Flush - Normal Saline) 10 ml IVF PRN PRN PRN Reason: Saline Flush
--- NOTE | 2017-06-13 15:55 | RAD ---
PORTABLE CHEST: Date: 06/13/17 HISTORY: Shortness of breath. COMPARISON: 06/10/17. FINDINGS: Poor inspiration. Cardiomegaly. Vascular congestion and evidence of small effusions. Central catheter overlies the SVC. Linear atelectasis in the left mid lung. IMPRESSION: Cardiomegaly with mild vascular congestion. Bibasilar atelectasis and evidence of small effusions. No significantly changed from 06/10/17. POS: [facility]
[2017-06-14] MEDS: Gabapentin 300 MG CAP PO SCH (00:26)
[2017-06-14] MEDS: Acetaminophen 325 MG TAB PO PRN ×2 (04:20→20:56)
[2017-06-14 06:36] LABS: Anion Gap 13 mmol/L (10-20); BUN (Urea Nitrogen) 19 mg/dL (8.4-25.7); Calc. Creatinine Clearance 17 mL/min (70-130); Calcium 9.4 mg/dL (7.8-10.44); Carbon Dioxide 29 mmol/L (23-31); Chloride 98 mmol/L (98-107); Estimated GFR-MDRD 12; Glucose 110 mg/dL (80-115); Potassium 3.8 mmol/L (3.5-5.1); Sodium 136 mmol/L (136-145)
[2017-06-14 07:06] LABS: Band 2 % (5-11); Eosinophils 5 % (0-10); Hypochromia SLIGHT = 6-15 cells (100X) (0-5/hpf); Lymphocytes 19 % (21-51); MDiff Complete? YES; Macrocytosis SLIGHT = 6-15 cells (100X) (0-5/hpf); Mean Corpuscular HGB CONC 31.3 g/dL (32.0-36.0); Mean Corpuscular Hemoglobin 31.7 pg (27.0-31.0); Mean Platelet Volume 7.5 fL (7.4-10.4); Monocytes 8 % (0-10); Neutrophil 66 % (42-75); PLT Morphology Comment Appears Adequate; Platelet Count 213 thou/uL (130-400); RBC Distribution Width 15.5 % (11.5-14.5); Red Blood Cell (RBC) Count 3.47 mill/uL (4.70-6.10); White Blood Cell (WBC) Count 6.6 thou/uL (4.8-10.8)
[2017-06-14] MEDS: Sevelamer Carbonate 800 MG TAB PO SCH ×3 (08:34→16:59)
[2017-06-14] MEDS: Heparin 5,000 UNITS/ML VIAL SC SCH ×3 (08:35→20:41)
[2017-06-14] MEDS: Calcitriol 0.25 MCG CAP PO SCH (08:35)
[2017-06-14] MEDS: Aspirin 81 mg Enteric Coated Tablet PO SCH (08:35)
--- NOTE | 2017-06-14 08:39 | PRG ---
DATE F SERVICE: 06/14/2017 SERVICE: Renal Medicine. SUBJECTIVE: Mr. Monge is a 62-year-old black male with ESRD and followed up by the Renal Service fo r his maintenance hemodialysis. I had a long discussion with this patient. He prefers to go back to peritoneal dialysis. He told me the problem he had prior to admission was that he had no support. However, he tells me somebody will be helping him at home now. He was short of breath yesterday, but after dialysis when we remove more than 4 liters, his breathing is improved. This morning, he denies any worsening shortness of breath and he denies any chest pain . OBJECTIVE: VITAL SIGNS: Blood pressure 117/60, heart rate 89, respiratory rate 18, temperature 98.8, pulse ox 9 9%. GENERAL: Awake, alert, comfortable, not in distress. SKIN: Adequate turgor. HEENT: He has pinkish conjunctivae, anicteric sclerae. NECK: No neck mass, no carotid bruits, no JVD. CHEST: No deformities. LUNGS: Decreased breath sounds. No wheezing. HEART: Normal sinus rhythm. No murmur, no gallops, no rubs. ABDOMEN: Globular, soft, nontender, no masses. EXTREMITIES: Trace edema. MEDICATIONS: Of 06/14/2017 was reviewed. LABORATORY DATA: Of 06/14/2017, white count 6.6, hemoglobin 11, hematocrit 35.2. Sodium 136, potass ium 3.8, chloride 98, carbon dioxide 29, BUN 19, creatinine 5.91, glucose 110, calcium 9.4. X-RAY FINDINGS: Chest x-ray of 06/13/2017 shows mild vascular congestion and evidence of a small eff usion. ASSESSMENT AND PLAN: 1. End-stage renal disease, stable. We will continue current dialysis regimen. The patient is want ing to try the peritoneal dialysis. I will make arrangements for him to be started on nocturnal CCPD . Due to his mild congestive heart failure, I will be using a 4.25% PD solution alternating with 2.5 % solution for 10 hours. I will discuss this with the dialysis nurses. We will hold off hemodialysi s and place this patient on peritoneal dialysis for the moment. 2. Mild congestive heart failure - clinically asymptomatic this morning. He is oxygenating well at 1.5 liters of oxygen. I do not see any indication for any emergent hemodialysis with this patient. Initiate peritoneal dialysis tonight. 3. Anemia, continuing weekly Epogen. 4. Bacteremia, on IV antibiotics. There is a plan to have this patient transferred to rehabilitation.
--- NOTE | 2017-06-14 14:52 | PDOC.PN ---
- Subjective Encounter Start Date: 06/14/17 Encounter Start Time: 09:00 Pt seen for followup re: bacteremia. Sleepy but arousable, denies any complaints. - Objective MAR Reviewed: Yes Vital Signs & Weight: Vital Signs (12 hours) Temp Pulse Resp BP BP Pulse Ox 06/14/17 14:49 82 16 06/14/17 12:00 98.5 F 80 20 121/71 97 06/14/17 10:21 85 16 98 06/14/17 07:15 98.2 F 86 20 132/62 98 06/14/17 04:04 98.8 F 89 18 117/60 99 Weight Admit Weight 216 lb Weight 213 lb 6.519 oz Most Recent Monitor Data Heart Rate from ECG 88 NIBP 131/64 NIBP BP-Mean 80 Respiration from ECG 19 SpO2 96 I&O: 06/13/17 06/14/17 06/15/17 06:59 06:59 06:59 Intake Total 720 500 Output Total 4500 Balance 720 -4000 Result Diagrams: 06/14/17 06:00 06/14/17 06:00 Additional Labs: Accuchecks 06/14/17 06/14/17 06/13/17 12:23 06:29 20:58 POC Glucose 152 H 113 H 197 H 06/13/17 16:40 POC Glucose 130 H EKG Reviewed by me: Yes (Tele: NSR) Phys Exam - Physical Examination Constitutional: NAD HEENT: moist MMs Neck: supple Respiratory: clear to auscultation bilateral Cardiovascular: RRR Gastrointestinal: soft Neurological: moves all 4 limbs Psychiatric: normal affect Dx/Plan (1) Bacteremia Code(s): R78.81 - BACTEREMIA Status: Acute Comment: Continue IV vancomycin by sliding scale (2) Acute respiratory failure Code(s): J96.00 - ACUTE RESPIRATORY FAILURE, UNSP W HYPOXIA OR HYPERCAPNIA Status: Acute Qualifiers: Respiratory failure complication: hypoxia and hypercapnia Qualified Code(s) : J96.01 - Acute respiratory failure with hypoxia; J96.02 - Acute respiratory failure with hypercapnia; J96.02 - Acute respiratory failure with hypercapnia; J96.02 - Acute respiratory failure with hypercapnia Comment: Improving (3) DM2 (diabetes mellitus, type 2) Status: Chronic Qualifiers: Diabetes mellitus complication status: with kidney complications Diabetes mellitus complication detail: with chronic kidney disease Chronic kidney disease stage: on chronic dialysis Comment: continue accuchecks, insulin sliding scale. (4) ESRD (end stage renal disease) on dialysis Code(s): N18.6 - END STAGE RENAL DISEASE; Z99.2 - DEPENDENCE ON RENAL DIALYSIS Status: Chronic Comment: Plan to start peritoneal dialysis tonight (5) HLD (hyperlipidemia) Code(s): E78.5 - HYPERLIPIDEMIA, UNSPECIFIED Status: Chronic Comment: continue statin (6) HTN (hypertension) Code(s): I10 - ESSENTIAL (PRIMARY) HYPERTENSION Status: Chronic Comment: Monitor vital signs, titrate antihypertensives as needed. - Plan * . Review of Systems - Review of Systems Respiratory: negative: Cough, Shortness of Breath, SOB with Excertion, Pleuritic Pain, Wheezing Cardiovascular: negative: chest pain, palpitations, orthopnea, paroxysmal nocturnal dyspnea, edema, light headedness - Medications/Allergies Allergies/Adverse Reactions: Allergies Allergy/AdvReac Type Severity Reaction Status Date / Time No Known Drug Allergies Allergy Verified 06/08/17 01:09 Medications: Current Medications Acetaminophen (Tylenol) 650 mg PO Q4H PRN PRN Reason: Headache/Fever or Pain Last Admin: 06/14/17 04:20 Dose: 650 mg Albuterol/Ipratropium (Duoneb) 3 ml NEB [id number] [facility] Last Admin: 06/14/17 14:49 Dose: 3 ml Aspirin (Ecotrin) 81 mg PO DAILY [facility] Last Admin: 06/14/17 08:35 Dose: 81 mg Calcitriol (Rocaltrol) 0.5 mcg PO DAILY [facility] Last Admin: 06/14/17 08:35 Dose: 0.5 mcg Dextrose/Water (Dextrose 50%) 25 gm SLOW IVP PRN PRN PRN Reason: Hypoglycemia Last Admin: 06/08/17 20:04 Dose: 25 gm Epoetin Graham (Procrit) 7,500 units SC Q7D [facility] Last Admin: 06/10/17 16:03 Dose: 7,500 units Gabapentin (Neurontin) 300 mg PO Q2DAYS [facility] Last Admin: 06/14/17 00:26 Dose: 300 mg Glucagon (Glucagon) 1 mg IM PRN PRN PRN Reason: Hypoglycemia Last Admin: 06/08/17 14:36 Dose: 1 mg Heparin Sodium (Porcine) (Heparin) 5,000 units SC TID [facility] Last Admin: 06/14/17 08:35 Dose: 5,000 units Dextrose/Water (D5w) 1,000 mls @ 0 mls/hr IV .Q0M PRN; As Directed PRN Reason: Hypoglycemia Last Admin: 06/08/17 06:15 Dose: 1,000 mls Vancomycin HCl 1.25 gm/ Sodium (Chloride) 250 mls @ 166.667 mls/hr IVPB WILLCALL [facility] Vancomycin HCl 1 gm/ Device 200 mls @ 200 mls/hr IVPB [facility] Vancomycin HCl 750 mg/ Sodium (Chloride) 250 mls @ 250 mls/hr IVPB [facility] Last Admin: 06/13/17 10:09 Dose: 250 mls Vancomycin HCl 500 mg/ Sodium (Chloride) 100 mls @ 100 mls/hr IVPB WILLCALL [facility] Insulin Human Lispro (Humalog) 0 units SC .MILD SLIDING SCALE PRN PRN Reason: Mild Correctional Scale Last Admin: 06/11/17 18:26 Dose: 2 unit/kg Hold Vancomycin For (Level >20) 0 each FS .AT DIALYSIS [facility] Sevelamer Carbonate (Renvela) 1,600 mg PO TID-[facility] Last Admin: 06/14/17 12:12 Dose: 1,600 mg Sodium Chloride (Flush - Normal Saline) 10 ml IVF PRN PRN PRN Reason: Saline Flush
--- NOTE | 2017-06-14 14:59 | PRG ---
DATE OF SERVICE: 06/15/2017 OBJECTIVE: GENERAL: He is awake, alert, responsive. VITAL SIGNS: His sats are 98% on 1 liter, respirations are 16, his temperature is 98, pulse 85, and blood pressure 132/62. CHEST: Chest reveals decreased breath sounds, no wheezing. CARDIAC: Normal S1, S2, no gallops. ABDOMEN: Soft. LABORATORY DATA: Creatinine is 5.91. H&H is 11 and 35. IMPRESSION: 1. Chronic renal failure. 2. Respiratory failure, improved. 3. Severe deconditioning. 4. Abnormal x-ray, bilaterally elevated hemidiaphragm with minimal atelectasis. PLAN: Continue PT and supportive care.
[2017-06-15] MEDS: Sevelamer Carbonate 800 MG TAB PO SCH ×3 (08:27→18:14)
[2017-06-15] MEDS: Calcitriol 0.25 MCG CAP PO SCH (08:27)
[2017-06-15] MEDS: Aspirin 81 mg Enteric Coated Tablet PO SCH (08:27)
[2017-06-15] MEDS: Heparin 5,000 UNITS/ML VIAL SC SCH ×3 (08:30→21:48)
--- NOTE | 2017-06-15 10:02 | PRG ---
DATE OF SERVICE: 06/15/2017 SERVICE: Renal Medicine. SUBJECTIVE: Mr. Monge is a 62-year-old black male with known history of end-stage renal disease. Leobardo truong was placed on backup hemodialysis, but the patient is wanting to go back to peritoneal dialysis. Leobardo truong will be undergoing rehabilitation and I will observe how he will recover from strains, to see if he could still proceed peritoneal dialysis as an outpatient. For the moment, I started on PD last nigh t. The PD catheter worked well. I removed about 2.5 liters of fluid. No complaints of chest pain or shortness of breath. OBJECTIVE: VITAL SIGNS: Blood pressure 135/62, heart rate 89, respiratory rate 16, temperature 98.4, pulse ox 9 5%. GENERAL: Noted to be awake, sitting comfortable, not in distress. SKIN: Adequate turgor. HEENT: He has pinkish conjunctivae, anicteric sclerae. NECK: No neck mass, no carotid bruits, no JVD. CHEST: No deformities. LUNGS: Clear breath sounds, no wheezing, no crackles. HEART: Normal sinus rhythm. No murmur, no gallops, no rubs. ABDOMEN: Globular, soft, nontender. No masses. Positive for PD catheter in the abdomen. EXTREMITIES: No edema, no deformities. MEDICATIONS: Of 06/15/2017 was reviewed. LABORATORY DATA: Of 06/14/2017, white count 6.6, hemoglobin 11, sodium 136, potassium 3.8, chloride 98, carbon dioxide 29, BUN 19, creatinine 5.91. ASSESSMENT AND PLAN: End-stage renal disease, stable. Tolerating current continuous cycling periton eal dialysis regimen. I removed 2.5% PD solution using a 4.25% alternating with 2.5% PD solution. M y plan is to continue the current peritoneal dialysis regimen. Agree to move out the patient at the rehabilitation. I will evaluate to see if he could proceed with peritoneal dialysis as an outpatient . If I feel he can do this, we will have his hemodialysis catheter pulled out.
--- NOTE | 2017-06-15 12:23 | PRG ---
DATE OF SERVICE: 06/15/2017 SERVICE: Pulmonary Medicine INTERVAL HISTORY: The patient is doing fantastic from a respiratory standpoint. He has no complaints of chest pain, nausea, vomiting, fevers or chills. He is tolerating dialysis just fine. His mentation is excellent. He has been up walking with physical therapy today. PHYSICAL EXAMINATION: VITAL SIGNS: Afebrile, pulse 80, blood pressure 120/58, respirations 18, saturation 98% on room air. GENERAL: The patient is awake, alert, in no apparent distress. LUNGS: Excellent air entry without prolonged expiratory phase, wheezing, rhonchi or crackles. HEART: Normal rate, regular. ABDOMEN: Soft, nontender, nondistended. Bowel sounds are positive. MUSCULOSKELETAL: No cyanosis or clubbing. No pitting in the bilateral lower extremities. NEUROLOGIC: Grossly nonfocal. ASSESSMENT: 1. Respiratory failure secondary to metabolic encephalopathy, resolved. 2. Hypoglycemia, resolved. 3. Severe sepsis, resolved. 4. Bacteremia secondary to Strep viridans, versus contamination. 5. End-stage renal disease. 6. Obstructive sleep apnea, witnessed at bedside. DISCUSSION AND PLAN: The patient is stable for transition out of the hospital from a purely respiratory perspective. I would like to see him in clinic in 2- 4 weeks in the outpatient setting to set him up for a sleep apnea evaluation. At this point, he has no further requirements for inpatient pulmonary opinion and I will sign off. Please call with additional respiratory questions. JAS
--- NOTE | 2017-06-15 12:30 | PDOC.PN ---
- Subjective Encounter Start Date: 06/15/17 Encounter Start Time: 08:20 Pt seen for followup re: bacteremia. Denies chest pain, shortness of breath, fevers or chills. - Objective MAR Reviewed: Yes Vital Signs & Weight: Vital Signs (12 hours) Temp Pulse Resp BP BP Pulse Ox Pulse Ox 06/15/17 11:11 98.8 F 80 18 120/58 L 98 06/15/17 10:43 78 16 06/15/17 10:03 96 06/15/17 08:19 98.4 F 89 16 135/62 95 06/15/17 08:00 98.4 F 89 16 95 06/15/17 07:06 94 L 06/15/17 07:02 86 20 06/15/17 04:20 98.8 F 79 16 112/56 L 94 L 06/15/17 02:35 82 16 98 Pulse Ox 06/15/17 11:11 06/15/17 10:43 06/15/17 10:03 95 06/15/17 08:19 06/15/17 08:00 06/15/17 07:06 06/15/17 07:02 06/15/17 04:20 06/15/17 02:35 Weight Admit Weight 216 lb Weight 213 lb 6.519 oz Most Recent Monitor Data Heart Rate from ECG 88 NIBP 131/64 NIBP BP-Mean 80 Respiration from ECG 19 SpO2 96 I&O: 06/14/17 06/15/17 06/16/17 06:59 06:59 06:59 Intake Total 500 960 Output Total 4500 0 Balance -4000 960 Result Diagrams: 06/14/17 06:00 06/14/17 06:00 Additional Labs: Accuchecks 06/15/17 06/14/17 06/14/17 12:01 21:56 16:25 POC Glucose 162 H 208 H 131 H 06/14/17 12:23 POC Glucose 152 H EKG Reviewed by me: Yes (Tele: NSR) Phys Exam - Physical Examination Constitutional: NAD HEENT: moist MMs Neck: supple Respiratory: clear to auscultation bilateral Cardiovascular: RRR Gastrointestinal: soft Neurological: moves all 4 limbs Psychiatric: normal affect Dx/Plan (1) Bacteremia Code(s): R78.81 - BACTEREMIA Status: Acute Comment: Continue IV vancomycin by sliding scale, plan is to remove dialysis catheter. (2) Acute respiratory failure Code(s): J96.00 - ACUTE RESPIRATORY FAILURE, UNSP W HYPOXIA OR HYPERCAPNIA Status: Acute Qualifiers: Respiratory failure complication: hypoxia and hypercapnia Qualified Code(s) : J96.01 - Acute respiratory failure with hypoxia; J96.02 - Acute respiratory failure with hypercapnia; J96.02 - Acute respiratory failure with hypercapnia; J96.02 - Acute respiratory failure with hypercapnia Comment: Improving (3) DM2 (diabetes mellitus, type 2) Status: Chronic Qualifiers: Diabetes mellitus complication status: with kidney complications Diabetes mellitus complication detail: with chronic kidney disease Chronic kidney disease stage: on chronic dialysis Comment: On accuchecks, insulin sliding scale. (4) ESRD (end stage renal disease) on dialysis Code(s): N18.6 - END STAGE RENAL DISEASE; Z99.2 - DEPENDENCE ON RENAL DIALYSIS Status: Chronic Comment: Pt had peritoneal dialysis last night. (5) HLD (hyperlipidemia) Code(s): E78.5 - HYPERLIPIDEMIA, UNSPECIFIED Status: Chronic Comment: continue statin (6) HTN (hypertension) Code(s): I10 - ESSENTIAL (PRIMARY) HYPERTENSION Status: Chronic Comment: Controlled - Plan * . Review of Systems - Review of Systems Cardiovascular: negative: chest pain, palpitations, orthopnea, paroxysmal nocturnal dyspnea, edema, light headedness, other Gastrointestinal: negative: Nausea, Vomiting, Abdominal Pain, Diarrhea, Constipation, Melena, Hematochezia - Medications/Allergies Allergies/Adverse Reactions: Allergies Allergy/AdvReac Type Severity Reaction Status Date / Time No Known Drug Allergies Allergy Verified 06/08/17 01:09 Medications: Current Medications Acetaminophen (Tylenol) 650 mg PO Q4H PRN PRN Reason: Headache/Fever or Pain Last Admin: 06/14/17 20:56 Dose: 650 mg Albuterol/Ipratropium (Duoneb) 3 ml NEB [id number] [facility] Last Admin: 06/15/17 10:43 Dose: 3 ml Aspirin (Ecotrin) 81 mg PO DAILY [facility] Last Admin: 06/15/17 08:27 Dose: 81 mg Calcitriol (Rocaltrol) 0.5 mcg PO DAILY [facility] Last Admin: 06/15/17 08:27 Dose: 0.5 mcg Dextrose/Water (Dextrose 50%) 25 gm SLOW IVP PRN PRN PRN Reason: Hypoglycemia Last Admin: 06/08/17 20:04 Dose: 25 gm Epoetin Graham (Procrit) 7,500 units SC Q7D [facility] Last Admin: 06/10/17 16:03 Dose: 7,500 units Gabapentin (Neurontin) 300 mg PO Q2DAYS [facility] Last Admin: 06/14/17 00:26 Dose: 300 mg Glucagon (Glucagon) 1 mg IM PRN PRN PRN Reason: Hypoglycemia Last Admin: 06/08/17 14:36 Dose: 1 mg Heparin Sodium (Porcine) (Heparin) 5,000 units SC TID [facility] Last Admin: 06/15/17 08:30 Dose: 5,000 units Dextrose/Water (D5w) 1,000 mls @ 0 mls/hr IV .Q0M PRN; As Directed PRN Reason: Hypoglycemia Last Admin: 06/08/17 06:15 Dose: 1,000 mls Vancomycin HCl 1.25 gm/ Sodium (Chloride) 250 mls @ 166.667 mls/hr [facility] Vancomycin HCl 1 gm/ Device 200 mls @ 200 mls/hr [facility] Vancomycin HCl 750 mg/ Sodium (Chloride) 250 mls @ 250 mls/hr IVPB [facility] Last Admin: 06/13/17 10:09 Dose: 250 mls Vancomycin HCl 500 mg/ Sodium (Chloride) 100 mls @ 100 mls/hr IVPB [facility] Insulin Human Lispro (Humalog) 0 units SC .MILD SLIDING SCALE PRN PRN Reason: Mild Correctional Scale Last Admin: 06/11/17 18:26 Dose: 2 unit/kg Hold Vancomycin For (Level >20) 0 each FS .AT DIALYSIS [facility] Sevelamer Carbonate (Renvela) 1,600 mg PO TID-[facility] Last Admin: 06/15/17 08:27 Dose: 1,600 mg Sodium Chloride (Flush - Normal Saline) 10 ml IVF PRN PRN PRN Reason: Saline Flush Last Admin: 06/15/17 08:25 Dose: 10 ml
[2017-06-15] MEDS: HumaLOG 300 UNITS/3 ML VIAL SC PRN (12:41)
[2017-06-15] MEDS: Acetaminophen 325 MG TAB PO PRN (21:55)
[2017-06-16] MEDS: Gabapentin 300 MG CAP PO SCH (02:11)
--- NOTE | 2017-06-16 08:47 | PRG ---
DATE OF SERVICE: 06/16/2017 SUBJECTIVE: Mr. Monge is a 62-year-old black male with ESRD and currently resumed back on CCPD. No new complaints today. We removed about 2 liters of ultrafiltration with the peritoneal dialysis las t night. He is feeling better. His appetite has picked up. He denies any chest pain or shortness o f breath. PHYSICAL EXAMINATION: VITAL SIGNS: Blood pressure is 131/74, heart rate 96, respiratory rate 20, temperature 98.7, pulse o x 97%. GENERAL: Awake, alert, comfortable, not in distress. SKIN: Adequate turgor. HEENT: He has a pinkish conjunctivae, anicteric sclerae. NECK: No neck mass, no carotid bruits, no JVD. CHEST: No deformities. LUNGS: Clear breath sounds. HEART: Normal sinus rhythm. No murmur, no gallops, no rubs. ABDOMEN: Globular, soft, nontender, no masses. Positive for PD catheter. EXTREMITIES: No edema. MEDICATIONS: 06/16/2017 - Reviewed. LABORATORY: 06/16/2017 - Glucose was 181. 06/14/2017 - BUN 90, creatinine 5.91, potassium 3.8. 06/14/2017 - Hemoglobin 11. ASSESSMENT AND PLAN: 1. Borderline anemia -- on weekly Epogen. 2. End-stage renal disease, stable. Tolerating current continuous cycling peritoneal dialysis regim en. As previously mentioned, we removed 2 liters of fluid/ultrafiltration. I will continue current CCPD regimen. Awaiting rehab transfer.
[2017-06-16] MEDS: Aspirin 81 mg Enteric Coated Tablet PO SCH (09:36)
[2017-06-16] MEDS: Calcitriol 0.25 MCG CAP PO SCH (09:36)
[2017-06-16] MEDS: Acetaminophen 325 MG TAB PO PRN (09:36)
[2017-06-16] MEDS: Sevelamer Carbonate 800 MG TAB PO SCH ×2 (09:36→12:55)
[2017-06-16] MEDS: Heparin 5,000 UNITS/ML VIAL SC SCH (09:37)
[2017-06-16 11:59] VITALS: BP 137/65; TEMP 99.1
--- NOTE | 2017-06-16 21:40 | DIS ---
DATE OF ADMISSION: 06/08/2017 DATE OF DISCHARGE: 06/16/2017 PRIMARY CARE PROVIDER: [facility] in [place], [place]. DISCHARGE DIAGNOSES: 1. Sepsis. 2. Bacteremia. 3. Traumatic rhabdomyolysis. 4. Physical deconditioning. CONDITION OF PATIENT ON THE DAY OF DISCHARGE: Stable. I assess Mr. Monge on the day of discharge. He denies any chest pain or shortness of breath. Vital signs are stable. S1 and S2 are heard, regu lar. Lungs are clear to auscultation bilaterally. CONSULTATIONS DURING THIS HOSPITALIZATION: 1. Pulmonology, Dr. Solorzano. 2. Nephrology, Dr. Brooke. 3. Infectious Diseases, Dr. Perez. DISCHARGE MEDICATIONS: Amlodipine 10 mg daily; aspirin 81 mg daily; calcitriol 0.5 mcg daily; vitami n D3 of 400 units Thursday, Thursday, and Thursday; Procrit 7,500 units subcutaneously every week with d ialysis; folic acid/vitamin B complex and C 1 mg daily; gabapentin 300 mg every other day; glipizide 10 mg 2 times a day; hydralazine 25 mg every 12 hours; Renvela 2400 mg 3 times a day; vancomycin with dialysis by sliding scale. HOSPITAL COURSE: Mr. Monge is a pleasant 62-year-old gentleman, who was admitted to [facility] on 06/08/2017 following transfer from [place] after he was found to have fallen and had generalized weakness. He was reportedly on the floor and unable to get any help. He was als o found to be in traumatic rhabdomyolysis. The patient is also end-stage renal disease patient with a history of peritoneal dialysis. He was seen by Nephrology Service and he was started on hemodialys is through a tunneled catheter that he already had at the time of admission. Blood cultures growth was suggestive of very dense streptococcal group. He was seen by Infectious Di sease Service and had continued on vancomycin. Plan was to start him on peritoneal dialysis and then have the hemodialysis catheter removed. He became physically deconditioned. He is being discharged to [facility]. He was started on peritoneal dialysis towards the end of his hospitalization. Nephrology Service al l follow him and decide when to remove the hemodialysis catheter. Nephrology Service will also manage vancomycin with his dialysis. Many thanks for allowing me to participate in Mr. Monge. Please feel free to contact me with any qu estions or concerns. DISCHARGE DESTINATION: [facility]. TOTAL AMOUNT OF TIME SPENT COORDINATING THIS DISCHARGE: 33 minutes.
== END 2017-06-16 14:20 | DRG 637 ==
LOC: ERS 22:01 → IMCU/EMU 23:30 → CCU 06-08 08:07 → 2NO 06-10 13:29
PROVIDERS: ADMIT Internal Medicine; ATTEND Internal Medicine
PROC: 5A1D70Z Performance of Urinary Filtration, Intermittent, Less than 6 Hours Per Day (ICD-10-PCS; 2017-06-08)
PROC: 5A09357 Assistance with Respiratory Ventilation, Less than 24 Consecutive Hours, Continuous Positive Airway Pressure (ICD-10-PCS; 2017-06-08)
PROC: 0BH17EZ Insertion of Endotracheal Airway into Trachea, Via Natural or Artificial Opening (ICD-10-PCS; 2017-06-08)
PROC: 5A1935Z Respiratory Ventilation, Less than 24 Consecutive Hours (ICD-10-PCS; 2017-06-08)
PROC: 5A1D70Z Performance of Urinary Filtration, Intermittent, Less than 6 Hours Per Day (ICD-10-PCS; 2017-06-09)
PROC: 5A1D70Z Performance of Urinary Filtration, Intermittent, Less than 6 Hours Per Day (ICD-10-PCS; 2017-06-11)
PROC: 5A1D70Z Performance of Urinary Filtration, Intermittent, Less than 6 Hours Per Day (ICD-10-PCS; 2017-06-13)
PROC: 3E1M39Z Irrigation of Peritoneal Cavity using Dialysate, Percutaneous Approach (ICD-10-PCS; principal; 2017-06-14)
DX: E11.649 Type 2 diabetes mellitus with hypoglycemia without coma (principal); A40.8 Other streptococcal sepsis; J96.01 Acute respiratory failure with hypoxia; J96.02 Acute respiratory failure with hypercapnia; E11.22 Type 2 diabetes mellitus with diabetic chronic kidney disease; N18.6 End stage renal disease; E78.5 Hyperlipidemia, unspecified; G47.33 Obstructive sleep apnea (adult) (pediatric); G92 Toxic encephalopathy; I10 Essential (primary) hypertension; E87.5 Hyperkalemia; D64.9 Anemia, unspecified; Z99.2 Dependence on renal dialysis; T79.6XXA Traumatic ischemia of muscle, initial encounter; Z79.4 Long term (current) use of insulin; Z79.899 Other long term (current) drug therapy; W18.30XA Fall on same level, unspecified, initial encounter
CPT/HCPCS: 36415; 36416; 70450; 71045; 72170; 80048; 80053; 80202; 82330; 82550; 82553; 82803; 82805; 83605; 83690; 83735; 84443; 84484; 85025; 85610; 85730; 87040; 87149; 90935; 90945; 93005; 94002; 94003; 94640; 94660; 94760; 96374; A4216; A4217; G0257; G8978-GP-CM; G8979-GP-CK; G8987-GO-CK; G8988-GO-CJ; J1610; J1644; J2250; J2270; J2543; J2997; J3370; J7050; J7620; Q4081

== ENCOUNTER 2020-03-13 06:36 | Day surgery (SDC) | payer MEDICARE, OTHER ==
[2020-03-12 14:08] VITALS: BMI 31.1
[2020-03-13] MEDS ORDERED: Acetaminophen 500 MG TAB ONE (07:31)
[2020-03-13 07:46] VITALS: BP 94/64; TEMP 97.1
[2020-03-13] MEDS ORDERED: FLU VACC QS2020-21(65YR UP)/PF 240 MCG/0.7 ML SYRINGE IM ONE (09:00)
[2020-03-13] MEDS ORDERED: Iopamidol 300 61% 100 ML VIAL FS ONE (12:16)
== END 2020-03-13 09:35 | disposition home or self-care (01) ==
LOC: SPEC 06:36
PROVIDERS: ATTEND Specialist
PROC: B51W1ZZ Fluoroscopy of Dialysis Shunt/Fistula using Low Osmolar Contrast (ICD-10-PCS; principal; 2020-03-13)
DX: T82.868A Thrombosis due to vascular prosthetic devices, implants and grafts, initial encounter (principal); I12.0 Hypertensive chronic kidney disease with stage 5 chronic kidney disease or end stage renal disease; E11.22 Type 2 diabetes mellitus with diabetic chronic kidney disease; N18.6 End stage renal disease; D63.1 Anemia in chronic kidney disease; J44.9 Chronic obstructive pulmonary disease, unspecified; E78.5 Hyperlipidemia, unspecified; E66.9 Obesity, unspecified; R29.6 Repeated falls; Z68.31 Body mass index [BMI] 31.0-31.9, adult; Z79.01 Long term (current) use of anticoagulants; Z79.899 Other long term (current) drug therapy; Z88.0 Allergy status to penicillin; Z99.2 Dependence on renal dialysis; Z87.891 Personal history of nicotine dependence
CPT/HCPCS: 36901; 76937; Q9967

== ENCOUNTER 2020-03-31 05:55 | Inpatient (IN) | payer MEDICARE ==
[2020-03-31] MEDS ORDERED: Clindamycin/D5W 900 mg/50 ml Premix Bag ONE (06:23)
[2020-03-31 06:47] LABS: #Lymphocytes 0.5 thou/uL (1.20-3.40); #Monocytes 0.5 thou/uL (0.11-0.59); #Neutrophils 11.6 thou/uL (1.40-6.50); %Basophils 0.1 % (0.0-1.0); %Eosinophils 0.1 % (0.0-10.0); %Lymphocytes 3.8 % (21.0-51.0); %Monocytes 3.6 % (0.0-10.0); %Neutrophils 92.5 % (42.0-75.0); Mean Corpuscular HGB CONC 31.7 g/dL (32.0-36.0); Mean Corpuscular Hemoglobin 33.2 pg (27.0-31.0); Mean Platelet Volume 7.6 fL (7.4-10.4); Platelet Count 313 thou/uL (130-400); Prothrombin Time 42.6 sec (12.0-14.7); RBC Distribution Width 15.2 % (11.5-14.5); Red Blood Cell (RBC) Count 4.23 mill/uL (4.70-6.10); White Blood Cell (WBC) Count 12.5 thou/uL (4.8-10.8)
[2020-03-31 06:48] LABS: PTT 62.4 sec (22.9-36.1)
[2020-03-31 06:49] LABS: INR-International Normal Ratio 4.4
[2020-03-31 07:27] LABS: Albumin 4.3 g/dL (3.4-4.8)
[2020-03-31 07:29] LABS: Calcium 9.4 mg/dL (7.8-10.44); Chloride 97 mmol/L (98-107); Sodium 140 mmol/L (136-145)
[2020-03-31 07:30] LABS: Globulin 3.6 g/dL (2.4-3.5); Glucose 122 mg/dL (80-115); Protein, Total 7.9 g/dL (5.8-8.1)
[2020-03-31 07:31] LABS: AST (SGOT) 22 U/L (5-34); Anion Gap 34 mmol/L (10-20); Bilirubin, Total 0.5 mg/dL (0.2-1.2); Carbon Dioxide 18 mmol/L (23-31)
[2020-03-31 07:33] LABS: Alkaline Phosphatase 99 U/L (40-110); Calc. Creatinine Clearance 0 mL/min (70-130)
[2020-03-31 07:34] LABS: BUN (Urea Nitrogen) 94 mg/dL (8.4-25.7)
[2020-03-31 07:35] LABS: Potassium 7.7 mmol/L (3.5-5.1)
[2020-03-31 07:36] LABS: ALT (SGPT) 18 U/L (8-55)
[2020-03-31] MEDS ORDERED: Insulin Regular 300 UNITS/3 ML VIAL ONE (07:51)
[2020-03-31] MEDS ORDERED: Calcium Chloride 1 GM/10 ML Abboject SYRINGE ONE (07:51)
[2020-03-31] MEDS ORDERED: Sodium Bicarb 50 MEQ/50 ML Abboject 8.4% SYRINGE ONE (07:51)
[2020-03-31] MEDS ORDERED: Dextrose 50% Abboject 50 ML SYRINGE ONE (07:51)
[2020-03-31 08:48] LABS: Hep B Surf Ag Non-Reactive S/CO (NonReactive)
[2020-03-31] MEDS ORDERED: Heparin 10,000 UNITS/ 10 ML VIAL ONE (10:43)
[2020-03-31] MEDS ORDERED: Dextrose 50% Abboject 50 ML SYRINGE SLOW IVP PRN (11:22)
[2020-03-31] MEDS ORDERED: HumaLOG 300 UNITS/3 ML VIAL SC PRN (11:22)
[2020-03-31] MEDS ORDERED: Dextrose 5% in Water 1,000 ML IV PRN (11:22)
[2020-03-31] MEDS: Famotidine 20 MG TAB PO SCH (15:11)
[2020-03-31 20:09] LABS: Hemoglobin 13.3 g/dL (14.0-18.0)
[2020-04-01 02:13] LABS: SARS-CoV-2 PCR by NAA Not Detected (NotDetected)
[2020-04-01] MEDS: Acetaminophen 325 MG TAB PO PRN ×2 (03:14→22:06)
[2020-04-01] MEDS: traMADol HCl 50 MG TAB PO PRN ×2 (03:14→22:07)
[2020-04-01 05:04] LABS: #Eosinphils 0.2 thou/uL (0.0-0.7); #Lymphocytes 0.8 thou/uL (1.20-3.40); #Monocytes 1.1 thou/uL (0.11-0.59); #Neutrophils 5.7 thou/uL (1.40-6.50); %Basophils 0.4 % (0.0-1.0); %Eosinophils 3.2 % (0.0-10.0); %Lymphocytes 10.6 % (21.0-51.0); %Monocytes 13.7 % (0.0-10.0); %Neutrophils 72.1 % (42.0-75.0); Hemoglobin 13.2 g/dL (14.0-18.0); Mean Corpuscular HGB CONC 31.4 g/dL (32.0-36.0); Mean Corpuscular Hemoglobin 33.3 pg (27.0-31.0); Mean Platelet Volume 7.7 fL (7.4-10.4); Platelet Count 266 thou/uL (130-400); RBC Distribution Width 15.2 % (11.5-14.5); Red Blood Cell (RBC) Count 3.96 mill/uL (4.70-6.10); White Blood Cell (WBC) Count 7.9 thou/uL (4.8-10.8)
[2020-04-01 05:05] LABS: INR-International Normal Ratio 3.8; PTT 65.9 sec (22.9-36.1); Prothrombin Time 38.4 sec (12.0-14.7)
[2020-04-01 05:25] LABS: ALT (SGPT) 14 U/L (8-55); AST (SGOT) 21 U/L (5-34); Albumin 3.4 g/dL (3.4-4.8); Alkaline Phosphatase 73 U/L (40-110); Anion Gap 20 mmol/L (10-20); BUN (Urea Nitrogen) 55 mg/dL (8.4-25.7); Bilirubin, Total 0.4 mg/dL (0.2-1.2); Calc. Creatinine Clearance 7 mL/min (70-130); Calcium 8.5 mg/dL (7.8-10.44); Carbon Dioxide 25 mmol/L (23-31); Chloride 100 mmol/L (98-107); Globulin 3.6 g/dL (2.4-3.5); Glucose 174 mg/dL (80-115); Sodium 140 mmol/L (136-145)
[2020-04-01] MEDS: Famotidine 20 MG TAB PO SCH (08:15)
[2020-04-01] MEDS ORDERED: Phytonadione 10 MG/ML AMP SC SCH (14:30)
[2020-04-01] MEDS ORDERED: FLU VACC QS2020-21(65YR UP)/PF 240 MCG/0.7 ML SYRINGE IM ONE (22:00)
[2020-04-01] MEDS: rOPINIRole HCl 0.25 MG TAB PO SCH (22:06)
[2020-04-02] MEDS: diphenhydrAMINE 30 GM TUBE TOP PRN ×3 (02:15→20:52)
[2020-04-02 05:22] LABS: #Eosinphils 0.3 thou/uL (0.0-0.7); #Lymphocytes 0.9 thou/uL (1.20-3.40); #Neutrophils 5.6 thou/uL (1.40-6.50); %Basophils 0.3 % (0.0-1.0); %Eosinophils 3.3 % (0.0-10.0); %Lymphocytes 11.9 % (21.0-51.0); %Monocytes 12.3 % (0.0-10.0); %Neutrophils 72.2 % (42.0-75.0); Hemoglobin 12.5 g/dL (14.0-18.0); Mean Corpuscular HGB CONC 31.1 g/dL (32.0-36.0); Mean Corpuscular Hemoglobin 32.9 pg (27.0-31.0); Mean Platelet Volume 7.6 fL (7.4-10.4); Platelet Count 257 thou/uL (130-400); Red Blood Cell (RBC) Count 3.81 mill/uL (4.70-6.10); White Blood Cell (WBC) Count 7.8 thou/uL (4.8-10.8)
[2020-04-02 05:28] LABS: INR-International Normal Ratio 1.6; Prothrombin Time 19.7 sec (12.0-14.7)
[2020-04-02 05:50] LABS: ALT (SGPT) 13 U/L (8-55); AST (SGOT) 15 U/L (5-34); Albumin 3.2 g/dL (3.4-4.8); Alkaline Phosphatase 71 U/L (40-110); Anion Gap 21 mmol/L (10-20); BUN (Urea Nitrogen) 63 mg/dL (8.4-25.7); Bilirubin, Total 0.3 mg/dL (0.2-1.2); Calc. Creatinine Clearance 6 mL/min (70-130); Calcium 8.2 mg/dL (7.8-10.44); Carbon Dioxide 26 mmol/L (23-31); Chloride 99 mmol/L (98-107); Globulin 3.3 g/dL (2.4-3.5); Glucose 183 mg/dL (80-115); Potassium 5.2 mmol/L (3.5-5.1); Protein, Total 6.5 g/dL (5.8-8.1); Sodium 141 mmol/L (136-145)
[2020-04-02] MEDS: Famotidine 20 MG TAB PO SCH (08:11)
[2020-04-02] MEDS: Acetaminophen 325 MG TAB PO PRN ×2 (08:25→20:53)
[2020-04-02] MEDS: traMADol HCl 50 MG TAB PO PRN ×2 (08:28→20:53)
[2020-04-02] MEDS ORDERED: Warfarin Sodium 2.5 MG TAB PO SCH (17:00)
[2020-04-02] MEDS ORDERED: Activase 2 MG VIAL CATH SCH (18:00)
[2020-04-02] MEDS ORDERED: Sterile Water 10 ML VIAL IVP SCH (18:00)
[2020-04-02] MEDS: rOPINIRole HCl 0.25 MG TAB PO SCH (20:53)
[2020-04-03 05:09] LABS: #Eosinphils 0.1 thou/uL (0.0-0.7); #Lymphocytes 0.6 thou/uL (1.20-3.40); #Monocytes 0.9 thou/uL (0.11-0.59); #Neutrophils 7.8 thou/uL (1.40-6.50); %Basophils 0.1 % (0.0-1.0); %Eosinophils 1.1 % (0.0-10.0); %Lymphocytes 6.3 % (21.0-51.0); %Monocytes 9.4 % (0.0-10.0); %Neutrophils 83.1 % (42.0-75.0); Hemoglobin 13.6 g/dL (14.0-18.0); Mean Corpuscular HGB CONC 30.8 g/dL (32.0-36.0); Mean Corpuscular Hemoglobin 33.4 pg (27.0-31.0); Mean Platelet Volume 8.5 fL (7.4-10.4); Platelet Count 180 thou/uL (130-400); Red Blood Cell (RBC) Count 4.06 mill/uL (4.70-6.10); White Blood Cell (WBC) Count 9.3 thou/uL (4.8-10.8)
[2020-04-03 05:35] LABS: ALT (SGPT) 14 U/L (8-55); AST (SGOT) 18 U/L (5-34); Albumin 3.4 g/dL (3.4-4.8); Alkaline Phosphatase 72 U/L (40-110); Anion Gap 22 mmol/L (10-20); BUN (Urea Nitrogen) 62 mg/dL (8.4-25.7); Bilirubin, Total 0.3 mg/dL (0.2-1.2); Calc. Creatinine Clearance 7 mL/min (70-130); Calcium 8.5 mg/dL (7.8-10.44); Carbon Dioxide 21 mmol/L (23-31); Chloride 100 mmol/L (98-107); Globulin 3.5 g/dL (2.4-3.5); Glucose 160 mg/dL (80-115); Potassium 5.4 mmol/L (3.5-5.1); Protein, Total 6.9 g/dL (5.8-8.1); Sodium 138 mmol/L (136-145)
[2020-04-03 05:37] LABS: INR-International Normal Ratio 1.1; PTT 34.5 sec (22.9-36.1); Prothrombin Time 14.6 sec (12.0-14.7)
[2020-04-03] MEDS ORDERED: Bupivacaine PF 0.5% 30 ML VIAL ONE (06:45)
[2020-04-03] MEDS ORDERED: Heparin 10,000 UNITS/ 10 ML VIAL ONE ×2 (06:45→10:53)
[2020-04-03] MEDS ORDERED: EPINEPHrine 1 MG/ML AMP ONE (06:45)
[2020-04-03] MEDS ORDERED: Sodium Chloride 0.9% 30 ML ONE (06:45)
[2020-04-03] MEDS ORDERED: Lidocaine 2% PF 5 ML VIAL ONE (06:47)
[2020-04-03] MEDS ORDERED: Fentanyl 100 MCG/2 ML VIAL ONE (10:00)
[2020-04-03] MEDS ORDERED: Midazolam HCl 5 mg/5 ml Vial ONE (10:01)
[2020-04-03] MEDS ORDERED: Levofloxacin 500 mg/D5W 100 ml Premix Bag ONE (11:09)
[2020-04-03] MEDS: Famotidine 20 MG TAB PO SCH (12:31)
[2020-04-03] MEDS ORDERED: Ondansetron HCl/PF 4 MG/2 ML Vial IVP PRN (12:45)
[2020-04-03] MEDS ORDERED: Warfarin Sodium 2.5 MG TAB PO SCH (17:00)
[2020-04-03] MEDS ORDERED: Warfarin Sodium 5 MG TAB PO SCH (17:00)
[2020-04-03] MEDS: Acetaminophen 500 MG TAB PO PRN (18:46)
[2020-04-03] MEDS: traMADol HCl 50 MG TAB PO PRN (18:48)
[2020-04-03] MEDS: rOPINIRole HCl 0.25 MG TAB PO SCH (22:18)
[2020-04-03] MEDS ORDERED: Clotrimazole/Betamethasone Cream 45 GM TUBE TOP SCH (23:15)
[2020-04-04 05:14] LABS: #Basophils 0.1 thou/uL (0.0-0.2); #Eosinphils 0.2 thou/uL (0.0-0.7); #Lymphocytes 0.6 thou/uL (1.20-3.40); #Monocytes 0.7 thou/uL (0.11-0.59); %Basophils 0.9 % (0.0-1.0); %Eosinophils 3.2 % (0.0-10.0); %Lymphocytes 9.7 % (21.0-51.0); %Monocytes 11.1 % (0.0-10.0); %Neutrophils 75.2 % (42.0-75.0); Hemoglobin 12.6 g/dL (14.0-18.0); Mean Corpuscular HGB CONC 31.1 g/dL (32.0-36.0); Mean Corpuscular Hemoglobin 33.4 pg (27.0-31.0); Mean Platelet Volume 8.2 fL (7.4-10.4); Platelet Count 193 thou/uL (130-400); RBC Distribution Width 14.7 % (11.5-14.5); Red Blood Cell (RBC) Count 3.76 mill/uL (4.70-6.10); White Blood Cell (WBC) Count 6.6 thou/uL (4.8-10.8)
[2020-04-04 05:28] LABS: Anion Gap 18 mmol/L (10-20); BUN (Urea Nitrogen) 51 mg/dL (8.4-25.7); Calc. Creatinine Clearance 8 mL/min (70-130); Calcium 8.6 mg/dL (7.8-10.44); Carbon Dioxide 23 mmol/L (23-31); Chloride 100 mmol/L (98-107); Glucose 121 mg/dL (80-115); Sodium 136 mmol/L (136-145)
[2020-04-04] MEDS ORDERED: Heparin 10,000 UNITS/ 10 ML VIAL ONE (10:14)
[2020-04-04] MEDS: Clotrimazole/Betamethasone Cream 45 GM TUBE TOP SCH ×3 (15:32→20:50)
[2020-04-04] MEDS: Metoprolol Tartrate 25 MG TAB PO SCH ×3 (15:41→18:23)
[2020-04-04] MEDS: Famotidine 20 MG TAB PO SCH (15:42)
[2020-04-04] MEDS: diphenhydrAMINE 30 GM TUBE TOP PRN (17:20)
[2020-04-04] MEDS: rOPINIRole HCl 0.25 MG TAB PO SCH (20:55)
[2020-04-05] MEDS: Metoprolol Tartrate 25 MG TAB PO SCH ×3 (02:16→21:05)
[2020-04-05 05:14] LABS: Anion Gap 16 mmol/L (10-20); BUN (Urea Nitrogen) 26 mg/dL (8.4-25.7); Calc. Creatinine Clearance 13 mL/min (70-130); Calcium 8.8 mg/dL (7.8-10.44); Carbon Dioxide 26 mmol/L (23-31); Chloride 99 mmol/L (98-107); Glucose 153 mg/dL (80-115); Potassium 4.8 mmol/L (3.5-5.1); Sodium 136 mmol/L (136-145)
[2020-04-05] MEDS ORDERED: Heparin 10,000 UNITS/ 10 ML VIAL ONE (10:28)
[2020-04-05] MEDS: Clotrimazole/Betamethasone Cream 45 GM TUBE TOP SCH ×4 (11:38→21:05)
[2020-04-05] MEDS: Famotidine 20 MG TAB PO SCH (11:38)
[2020-04-05] MEDS: Folic Acid/Vit B Comp W-C PO SCH (15:28)
[2020-04-05 17:01] LABS: Actual Bicarbonate (HCO3a) 31.7 mEq/L (22-28); Base Excess (BEa) -3.7 mEq/L (-2.0 to +3.0); Carboxyhemoglobin (COHb) 1.7 gm% (0.0-3.0); Hemoglobin (Hb) 14.8 g/dL (14.0-18.0); O2 Tension (PaO2), arterial 81.8 mmHg (> 80.0); Potassium - ABG Lab 4.82 mmol/L (3.70-5.30)
[2020-04-05] MEDS ORDERED: Naloxone HCl 0.4 mg/ml Vial ONE (17:07)
[2020-04-05 17:12] LABS: CO2 Tension 131.6 mmHg (35.0-45.0); Puncture Site RRA
[2020-04-05] MEDS ORDERED: Naloxone HCl 0.4 mg/ml Vial IV PRN (17:29)
[2020-04-05] MEDS: rOPINIRole HCl 0.25 MG TAB PO SCH (21:05)
[2020-04-06] MEDS: Acetaminophen 500 MG TAB PO PRN ×2 (00:28→22:00)
[2020-04-06 04:37] LABS: Anion Gap 17 mmol/L (10-20); BUN (Urea Nitrogen) 19 mg/dL (8.4-25.7); Calc. Creatinine Clearance 14 mL/min (70-130); Calcium 8.7 mg/dL (7.8-10.44); Carbon Dioxide 23 mmol/L (23-31); Chloride 101 mmol/L (98-107); Glucose 106 mg/dL (80-115); Potassium 4.9 mmol/L (3.5-5.1); Sodium 136 mmol/L (136-145)
[2020-04-06] MEDS: Folic Acid/Vit B Comp W-C PO SCH (09:38)
[2020-04-06] MEDS: Famotidine 20 MG TAB PO SCH (09:38)
[2020-04-06] MEDS: Metoprolol Tartrate 25 MG TAB PO SCH ×2 (09:38→21:20)
[2020-04-06] MEDS: Clotrimazole/Betamethasone Cream 45 GM TUBE TOP SCH ×3 (10:03→21:20)
[2020-04-06] MEDS ORDERED: Heparin 10,000 UNITS/ 10 ML VIAL ONE (11:10)
[2020-04-06] MEDS: rOPINIRole HCl 0.25 MG TAB PO SCH (21:19)
[2020-04-07 04:35] LABS: Anion Gap 15 mmol/L (10-20); BUN (Urea Nitrogen) 18 mg/dL (8.4-25.7); Calc. Creatinine Clearance 16 mL/min (70-130); Calcium 8.5 mg/dL (7.8-10.44); Carbon Dioxide 27 mmol/L (23-31); Chloride 98 mmol/L (98-107); Glucose 77 mg/dL (80-115); Potassium 4.3 mmol/L (3.5-5.1); Sodium 136 mmol/L (136-145)
[2020-04-07] MEDS: Clotrimazole/Betamethasone Cream 45 GM TUBE TOP SCH ×3 (07:25→20:59)
[2020-04-07] MEDS: Famotidine 20 MG TAB PO SCH (07:26)
[2020-04-07] MEDS: Metoprolol Tartrate 25 MG TAB PO SCH ×2 (07:26→20:53)
[2020-04-07] MEDS: Ergocalciferol 1.25 MG(50,000 UNITS) CAP PO SCH (07:26)
[2020-04-07] MEDS: Folic Acid/Vit B Comp W-C PO SCH (07:26)
[2020-04-07] MEDS: Acetaminophen 500 MG TAB PO PRN ×2 (13:27→20:53)
[2020-04-07] MEDS: Warfarin Sodium 5 MG TAB PO SCH (16:14)
[2020-04-07] MEDS: rOPINIRole HCl 0.25 MG TAB PO SCH (20:59)
[2020-04-08] MEDS: Acetaminophen 500 MG TAB PO PRN (05:04)
[2020-04-08] MEDS: Famotidine 20 MG TAB PO SCH (07:48)
[2020-04-08] MEDS: Metoprolol Tartrate 25 MG TAB PO SCH ×2 (07:48→20:02)
[2020-04-08] MEDS: Folic Acid/Vit B Comp W-C PO SCH (07:48)
[2020-04-08] MEDS: Clotrimazole/Betamethasone Cream 45 GM TUBE TOP SCH ×3 (07:48→20:05)
[2020-04-08] MEDS: Clindamycin 150 MG CAP PO SCH ×2 (16:57→20:01)
[2020-04-08] MEDS: Warfarin Sodium 5 MG TAB PO SCH (16:58)
[2020-04-08] MEDS: busPIRone HCl 5 MG TAB PO SCH (20:02)
[2020-04-08] MEDS: rOPINIRole HCl 0.25 MG TAB PO SCH (20:02)
[2020-04-09] MEDS: Clindamycin 150 MG CAP PO SCH ×4 (03:46→21:25)
[2020-04-09 06:28] LABS: Prothrombin Time 13.6 sec (12.0-14.7)
[2020-04-09] MEDS: Clotrimazole/Betamethasone Cream 45 GM TUBE TOP SCH ×3 (07:57→21:25)
[2020-04-09] MEDS: Folic Acid/Vit B Comp W-C PO SCH (07:57)
[2020-04-09] MEDS: Saccharomyces boulardii 250 MG CAP PO SCH (07:57)
[2020-04-09] MEDS: Metoprolol Tartrate 25 MG TAB PO SCH ×2 (07:57→21:25)
[2020-04-09] MEDS: busPIRone HCl 5 MG TAB PO SCH ×2 (07:57→21:25)
[2020-04-09] MEDS: Famotidine 20 MG TAB PO SCH (07:57)
[2020-04-09] MEDS ORDERED: Heparin 10,000 UNITS/ 10 ML VIAL ONE (08:49)
[2020-04-09 09:19] LABS: Hemoglobin 12.1 g/dL (14.0-18.0); Mean Corpuscular HGB CONC 30.5 g/dL (32.0-36.0); Mean Corpuscular Hemoglobin 32.9 pg (27.0-31.0); Mean Platelet Volume 8.4 fL (7.4-10.4); Platelet Count 217 thou/uL (130-400); RBC Distribution Width 14.6 % (11.5-14.5); Red Blood Cell (RBC) Count 3.68 mill/uL (4.70-6.10); White Blood Cell (WBC) Count 7.2 thou/uL (4.8-10.8)
[2020-04-09 09:42] LABS: Anion Gap 19 mmol/L (10-20); BUN (Urea Nitrogen) 40 mg/dL (8.4-25.7); Calc. Creatinine Clearance 11 mL/min (70-130); Calcium 8.3 mg/dL (7.8-10.44); Carbon Dioxide 23 mmol/L (23-31); Chloride 98 mmol/L (98-107); Glucose 152 mg/dL (80-115); Potassium 4.5 mmol/L (3.5-5.1); Sodium 135 mmol/L (136-145)
[2020-04-09] MEDS: Warfarin Sodium 5 MG TAB PO SCH (18:00)
[2020-04-09] MEDS: rOPINIRole HCl 0.25 MG TAB PO SCH (21:25)
[2020-04-10] MEDS: Acetaminophen 500 MG TAB PO PRN (00:48)
[2020-04-10] MEDS: Clindamycin 150 MG CAP PO SCH ×2 (03:31→09:34)
[2020-04-10 06:29] LABS: Prothrombin Time 13.7 sec (12.0-14.7)
[2020-04-10 06:34] LABS: #Eosinphils 0.1 thou/uL (0.0-0.7); #Lymphocytes 0.6 thou/uL (1.20-3.40); #Monocytes 0.7 thou/uL (0.11-0.59); #Neutrophils 4.9 thou/uL (1.40-6.50); %Basophils 0.6 % (0.0-1.0); %Eosinophils 1.4 % (0.0-10.0); %Lymphocytes 9.8 % (21.0-51.0); %Neutrophils 77.2 % (42.0-75.0); Hemoglobin 12.9 g/dL (14.0-18.0); Mean Corpuscular HGB CONC 30.2 g/dL (32.0-36.0); Mean Corpuscular Hemoglobin 32.5 pg (27.0-31.0); Mean Platelet Volume 7.6 fL (7.4-10.4); Platelet Count 222 thou/uL (130-400); RBC Distribution Width 14.7 % (11.5-14.5); Red Blood Cell (RBC) Count 3.97 mill/uL (4.70-6.10); White Blood Cell (WBC) Count 6.4 thou/uL (4.8-10.8)
[2020-04-10 06:46] LABS: Anion Gap 16 mmol/L (10-20); BUN (Urea Nitrogen) 24 mg/dL (8.4-25.7); Calc. Creatinine Clearance 14 mL/min (70-130); Calcium 8.6 mg/dL (7.8-10.44); Carbon Dioxide 26 mmol/L (23-31); Chloride 98 mmol/L (98-107); Glucose 150 mg/dL (80-115); Potassium 4.1 mmol/L (3.5-5.1); Sodium 136 mmol/L (136-145)
[2020-04-10] MEDS: Metoprolol Tartrate 25 MG TAB PO SCH (08:47)
[2020-04-10] MEDS: Clotrimazole/Betamethasone Cream 45 GM TUBE TOP SCH ×3 (09:13→20:57)
[2020-04-10] MEDS: Famotidine 20 MG TAB PO SCH (09:34)
[2020-04-10] MEDS: Saccharomyces boulardii 250 MG CAP PO SCH (09:34)
[2020-04-10] MEDS: Folic Acid/Vit B Comp W-C PO SCH (09:34)
[2020-04-10] MEDS: busPIRone HCl 5 MG TAB PO SCH ×2 (09:34→20:57)
[2020-04-10 12:49] LABS: Actual Bicarbonate (HCO3v) 29 mEq/L (22-28); Base Excess -3.4 mEq/L (-2.0 to +3.0); Calcium, Ionized (venous) 1.18 mmol/L (1.16-1.32); Chloride (VBG) 99 mmol/L (98-106); Hemoglobin (Hb) 13.9 g/dL (12.6-17.4); Potassium (VBG) 4.35 mmol/L (3.70-5.30); Sodium 136.5 mmol/L (133-146)
[2020-04-10] MEDS: Warfarin Sodium 7.5 MG TAB PO SCH (17:17)
[2020-04-10] MEDS: rOPINIRole HCl 0.25 MG TAB PO SCH (21:03)
[2020-04-11] MEDS: HumaLOG 300 UNITS/3 ML VIAL SC PRN (05:28)
[2020-04-11] MEDS: busPIRone HCl 5 MG TAB PO SCH ×2 (09:15→21:10)
[2020-04-11] MEDS: Famotidine 20 MG TAB PO SCH (09:15)
[2020-04-11] MEDS: Folic Acid/Vit B Comp W-C PO SCH (09:15)
[2020-04-11] MEDS: Saccharomyces boulardii 250 MG CAP PO SCH (09:15)
[2020-04-11] MEDS: Clotrimazole/Betamethasone Cream 45 GM TUBE TOP SCH ×3 (09:16→21:10)
[2020-04-11 10:12] LABS: INR-International Normal Ratio 1.2; Prothrombin Time 15.7 sec (12.0-14.7)
[2020-04-11] MEDS ORDERED: Heparin 10,000 UNITS/ 10 ML VIAL ONE (10:42)
[2020-04-11] MEDS ORDERED: Albumin 5% 250 ML ONE (10:43)
[2020-04-11] MEDS ORDERED: Albumin 25% 25 GM/100 ML BOT IVPB SCH (10:45)
[2020-04-11] MEDS: Warfarin Sodium 7.5 MG TAB PO SCH (17:51)
[2020-04-11] MEDS: rOPINIRole HCl 0.25 MG TAB PO SCH (21:10)
[2020-04-12 04:03] LABS: Prothrombin Time 13.3 sec (12.0-14.7)
[2020-04-12] MEDS ORDERED: Midodrine HCl 5 MG TAB PO SCH (09:00)
[2020-04-12] MEDS: Saccharomyces boulardii 250 MG CAP PO SCH (09:22)
[2020-04-12] MEDS: Folic Acid/Vit B Comp W-C PO SCH (09:22)
[2020-04-12] MEDS: busPIRone HCl 5 MG TAB PO SCH ×2 (09:22→20:28)
[2020-04-12] MEDS: Famotidine 20 MG TAB PO SCH (09:22)
[2020-04-12] MEDS: Clotrimazole/Betamethasone Cream 45 GM TUBE TOP SCH ×3 (09:23→20:32)
[2020-04-12] MEDS: Acetaminophen 500 MG TAB PO PRN (09:37)
[2020-04-12 10:05] LABS: #Eosinphils 0.1 thou/uL (0.0-0.7); #Lymphocytes 0.8 thou/uL (1.20-3.40); #Monocytes 0.8 thou/uL (0.11-0.59); #Neutrophils 5.9 thou/uL (1.40-6.50); %Basophils 0.5 % (0.0-1.0); %Eosinophils 0.8 % (0.0-10.0); %Monocytes 10.6 % (0.0-10.0); %Neutrophils 78.2 % (42.0-75.0); Hemoglobin 12.3 g/dL (14.0-18.0); Mean Corpuscular HGB CONC 29.5 g/dL (32.0-36.0); Mean Platelet Volume 7.7 fL (7.4-10.4); Platelet Count 214 thou/uL (130-400); RBC Distribution Width 14.8 % (11.5-14.5); Red Blood Cell (RBC) Count 3.74 mill/uL (4.70-6.10); White Blood Cell (WBC) Count 7.6 thou/uL (4.8-10.8)
[2020-04-12 10:16] LABS: Anion Gap 15 mmol/L (10-20); BUN (Urea Nitrogen) 16 mg/dL (8.4-25.7); Calc. Creatinine Clearance 18 mL/min (70-130); Calcium 8.6 mg/dL (7.8-10.44); Carbon Dioxide 26 mmol/L (23-31); Chloride 102 mmol/L (98-107); Glucose 140 mg/dL (80-115); Sodium 139 mmol/L (136-145)
[2020-04-12] MEDS ORDERED: busPIRone HCl 5 MG TAB PO SCH ×3 (10:32→10:45)
[2020-04-12 12:00] LABS: Basophilic Stippling SLIGHT = 1-2 cells (100X) (None Seen); Hypochromia SLIGHT = 6-15 cells (100X) (0-5/hpf); MDiff Complete? YES; Platelet Morphology Comment Appears Adequate
[2020-04-12 12:04] LABS: Actual Bicarbonate (HCO3a) 29.1 mEq/L (22-28); Base Excess (BEa) -2.4 mEq/L (-2.0 to +3.0); Calcium, Ionized (arterial) 1.26 mmol/L (1.12-1.30); Carboxyhemoglobin (COHb) 1.2 gm% (0.0-3.0); Hemoglobin (Hb) 12.8 g/dL (14.0-18.0); O2 Tension (PaO2), arterial 103.8 mmHg (> 80.0); Potassium - ABG Lab 4.06 mmol/L (3.70-5.30)
[2020-04-12 12:08] LABS: Puncture Site RBA; pH, Arterial 7.12 (7.35-7.45)
[2020-04-12] MEDS: Warfarin Sodium 7.5 MG TAB PO SCH (18:40)
[2020-04-12] MEDS: rOPINIRole HCl 0.25 MG TAB PO SCH (20:29)
[2020-04-13 03:36] LABS: #Eosinphils 0.1 thou/uL (0.0-0.7); #Lymphocytes 0.5 thou/uL (1.20-3.40); #Monocytes 0.6 thou/uL (0.11-0.59); #Neutrophils 4.2 thou/uL (1.40-6.50); %Basophils 0.8 % (0.0-1.0); %Eosinophils 1.6 % (0.0-10.0); %Lymphocytes 9.7 % (21.0-51.0); %Monocytes 10.9 % (0.0-10.0); Hemoglobin 11.4 g/dL (14.0-18.0); Mean Corpuscular HGB CONC 30.9 g/dL (32.0-36.0); Mean Corpuscular Hemoglobin 34.1 pg (27.0-31.0); Mean Platelet Volume 7.8 fL (7.4-10.4); Platelet Count 195 thou/uL (130-400); Red Blood Cell (RBC) Count 3.34 mill/uL (4.70-6.10); White Blood Cell (WBC) Count 5.4 thou/uL (4.8-10.8)
[2020-04-13 03:43] LABS: Prothrombin Time 13.2 sec (12.0-14.7)
[2020-04-13 03:55] LABS: Anion Gap 15 mmol/L (10-20); BUN (Urea Nitrogen) 25 mg/dL (8.4-25.7); Calc. Creatinine Clearance 15 mL/min (70-130); Calcium 8.5 mg/dL (7.8-10.44); Carbon Dioxide 23 mmol/L (23-31); Chloride 101 mmol/L (98-107); Glucose 142 mg/dL (80-115); Sodium 135 mmol/L (136-145)
[2020-04-13] MEDS: Acetaminophen 500 MG TAB PO PRN ×3 (04:52→23:41)
[2020-04-13] MEDS: Midodrine HCl 5 MG TAB PO SCH (08:33)
[2020-04-13] MEDS: Saccharomyces boulardii 250 MG CAP PO SCH (08:33)
[2020-04-13] MEDS: Folic Acid/Vit B Comp W-C PO SCH (08:34)
[2020-04-13] MEDS: busPIRone HCl 5 MG TAB PO SCH ×3 (08:34→20:21)
[2020-04-13] MEDS: Famotidine 20 MG TAB PO SCH (08:34)
[2020-04-13] MEDS: Clotrimazole/Betamethasone Cream 45 GM TUBE TOP SCH ×3 (08:35→20:27)
[2020-04-13] MEDS: Warfarin Sodium 10 MG TAB PO SCH (17:14)
[2020-04-13] MEDS: rOPINIRole HCl 0.25 MG TAB PO SCH (20:24)
[2020-04-14 05:31] LABS: INR-International Normal Ratio 1.1; Prothrombin Time 14.3 sec (12.0-14.7)
[2020-04-14] MEDS: Famotidine 20 MG TAB PO SCH (11:00)
[2020-04-14] MEDS: busPIRone HCl 5 MG TAB PO SCH ×2 (11:01→21:15)
[2020-04-14] MEDS: Midodrine HCl 5 MG TAB PO SCH (11:01)
[2020-04-14] MEDS: Clotrimazole/Betamethasone Cream 45 GM TUBE TOP SCH ×3 (11:04→21:16)
[2020-04-14] MEDS: Folic Acid/Vit B Comp W-C PO SCH (11:14)
[2020-04-14] MEDS: Saccharomyces boulardii 250 MG CAP PO SCH (11:14)
[2020-04-14] MEDS: Ergocalciferol 1.25 MG(50,000 UNITS) CAP PO SCH (11:14)
[2020-04-14] MEDS: HumaLOG 300 UNITS/3 ML VIAL SC PRN (17:28)
[2020-04-14] MEDS: Warfarin Sodium 10 MG TAB PO SCH (17:36)
[2020-04-14] MEDS: Acetaminophen 500 MG TAB PO PRN (21:15)
[2020-04-14] MEDS: rOPINIRole HCl 0.25 MG TAB PO SCH (21:15)
[2020-04-15 04:41] LABS: INR-International Normal Ratio 1.3; Prothrombin Time 16.2 sec (12.0-14.7)
[2020-04-15] MEDS: Midodrine HCl 5 MG TAB PO SCH (08:44)
[2020-04-15] MEDS: Famotidine 20 MG TAB PO SCH (08:44)
[2020-04-15] MEDS: busPIRone HCl 5 MG TAB PO SCH ×2 (08:44→22:24)
[2020-04-15] MEDS: Saccharomyces boulardii 250 MG CAP PO SCH (08:44)
[2020-04-15] MEDS: Folic Acid/Vit B Comp W-C PO SCH (08:44)
[2020-04-15] MEDS: Clotrimazole/Betamethasone Cream 45 GM TUBE TOP SCH ×3 (08:45→22:24)
[2020-04-15] MEDS: Warfarin Sodium 10 MG TAB PO SCH (16:51)
[2020-04-15] MEDS: rOPINIRole HCl 0.25 MG TAB PO SCH (22:25)
[2020-04-16 05:25] LABS: INR-International Normal Ratio 1.7; Prothrombin Time 20.6 sec (12.0-14.7)
[2020-04-16 05:31] LABS: Anion Gap 18 mmol/L (10-20); BUN (Urea Nitrogen) 39 mg/dL (8.4-25.7); Calc. Creatinine Clearance 12 mL/min (70-130); Calcium 8.6 mg/dL (7.8-10.44); Carbon Dioxide 22 mmol/L (23-31); Chloride 100 mmol/L (98-107); Glucose 130 mg/dL (80-115); Potassium 4.3 mmol/L (3.5-5.1); Sodium 136 mmol/L (136-145)
[2020-04-16] MEDS: Folic Acid/Vit B Comp W-C PO SCH (07:52)
[2020-04-16] MEDS: Saccharomyces boulardii 250 MG CAP PO SCH (07:52)
[2020-04-16] MEDS: Midodrine HCl 5 MG TAB PO SCH (07:53)
[2020-04-16] MEDS: Famotidine 20 MG TAB PO SCH (07:53)
[2020-04-16] MEDS: busPIRone HCl 5 MG TAB PO SCH ×2 (07:53→20:18)
[2020-04-16] MEDS: Clotrimazole/Betamethasone Cream 45 GM TUBE TOP SCH ×3 (07:55→20:18)
[2020-04-16] MEDS ORDERED: Albumin 25% 25 GM/100 ML BOT IVPB SCH (08:59)
[2020-04-16 09:07] LABS: Lactic Acid 0.8 mmol/L (0.5-2.2)
[2020-04-16 09:08] LABS: #Lymphocytes 0.5 thou/uL (1.20-3.40); #Monocytes 1.1 thou/uL (0.11-0.59); #Neutrophils 7.6 thou/uL (1.40-6.50); %Basophils 0.2 % (0.0-1.0); %Eosinophils 0.3 % (0.0-10.0); %Lymphocytes 5.5 % (21.0-51.0); %Monocytes 11.6 % (0.0-10.0); %Neutrophils 82.5 % (42.0-75.0); Hemoglobin 11.3 g/dL (14.0-18.0); Mean Corpuscular HGB CONC 31.6 g/dL (32.0-36.0); Mean Corpuscular Hemoglobin 34.4 pg (27.0-31.0); Mean Platelet Volume 8.1 fL (7.4-10.4); Platelet Count 228 thou/uL (130-400); RBC Distribution Width 14.9 % (11.5-14.5); Red Blood Cell (RBC) Count 3.29 mill/uL (4.70-6.10); White Blood Cell (WBC) Count 9.2 thou/uL (4.8-10.8)
[2020-04-16 09:28] LABS: Anion Gap 15 mmol/L (10-20); BUN (Urea Nitrogen) 41 mg/dL (8.4-25.7); Calc. Creatinine Clearance 12 mL/min (70-130); Calcium 8.9 mg/dL (7.8-10.44); Carbon Dioxide 27 mmol/L (23-31); Chloride 100 mmol/L (98-107); Glucose 96 mg/dL (80-115); Potassium 4.1 mmol/L (3.5-5.1); Sodium 138 mmol/L (136-145)
[2020-04-16] MEDS ORDERED: Heparin 10,000 UNITS/ 10 ML VIAL ONE (11:06)
[2020-04-16] MEDS ORDERED: Sodium Chloride 0.9% 250 ML 250 ML IVPB SCH (13:30)
[2020-04-16] MEDS: Warfarin Sodium 10 MG TAB PO SCH (17:10)
[2020-04-16] MEDS: Acetaminophen 500 MG TAB PO PRN (17:10)
[2020-04-16] MEDS: rOPINIRole HCl 0.25 MG TAB PO SCH (20:18)
[2020-04-17] MEDS: HumaLOG 300 UNITS/3 ML VIAL SC PRN (06:35)
[2020-04-17] MEDS: busPIRone HCl 5 MG TAB PO SCH (07:53)
[2020-04-17] MEDS: Midodrine HCl 5 MG TAB PO SCH (07:54)
[2020-04-17] MEDS: Famotidine 20 MG TAB PO SCH (07:54)
[2020-04-17] MEDS: Folic Acid/Vit B Comp W-C PO SCH (07:54)
[2020-04-17] MEDS: Saccharomyces boulardii 250 MG CAP PO SCH (07:54)
[2020-04-17] MEDS: Clotrimazole/Betamethasone Cream 45 GM TUBE TOP SCH ×3 (07:59→20:14)
[2020-04-17 12:56] VITALS: BMI 27.6
[2020-04-17] MEDS: Warfarin Sodium 10 MG TAB PO SCH (17:07)
[2020-04-17] MEDS: Acetaminophen 500 MG TAB PO PRN (23:26)
[2020-04-18] MEDS: HumaLOG 300 UNITS/3 ML VIAL SC PRN (05:42)
[2020-04-18] MEDS ORDERED: Albumin 25% 25 GM/100 ML BOT IVPB SCH (09:00)
[2020-04-18] MEDS ORDERED: Heparin 10,000 UNITS/ 10 ML VIAL ONE (10:07)
[2020-04-18 10:12] LABS: INR-International Normal Ratio 2.1
[2020-04-18] MEDS: Folic Acid/Vit B Comp W-C PO SCH (12:30)
[2020-04-18] MEDS: Saccharomyces boulardii 250 MG CAP PO SCH (12:30)
[2020-04-18] MEDS: Famotidine 20 MG TAB PO SCH (12:30)
[2020-04-18] MEDS: Midodrine HCl 5 MG TAB PO SCH ×2 (12:45→13:24)
[2020-04-18] MEDS: Clotrimazole/Betamethasone Cream 45 GM TUBE TOP SCH ×3 (12:47→21:30)
[2020-04-18] MEDS: Warfarin Sodium 10 MG TAB PO SCH (16:55)
[2020-04-19 04:48] LABS: Hemoglobin 11.5 g/dL (14.0-18.0); INR-International Normal Ratio 2.1; Mean Corpuscular HGB CONC 30.9 g/dL (32.0-36.0); Mean Corpuscular Hemoglobin 34.1 pg (27.0-31.0); Platelet Count 219 thou/uL (130-400); RBC Distribution Width 14.9 % (11.5-14.5); Red Blood Cell (RBC) Count 3.37 mill/uL (4.70-6.10); White Blood Cell (WBC) Count 7.6 thou/uL (4.8-10.8)
[2020-04-19 05:07] LABS: Band 2 % (5-11); Lymphocytes 10 % (21-51); MDiff Complete? YES; Monocytes 23 % (0-10); Neutrophil 65 % (42-75); Nucleated RBC 2 % (0); Platelet Morphology Comment Appears Adequate
[2020-04-19 05:09] LABS: Anion Gap 12 mmol/L (10-20); BUN (Urea Nitrogen) 22 mg/dL (8.4-25.7); Calc. Creatinine Clearance 20 mL/min (70-130); Calcium 9.2 mg/dL (7.8-10.44); Carbon Dioxide 30 mmol/L (23-31); Chloride 99 mmol/L (98-107); Glucose 125 mg/dL (80-115); Potassium 3.8 mmol/L (3.5-5.1); Sodium 137 mmol/L (136-145)
[2020-04-19] MEDS: Famotidine 20 MG TAB PO SCH (08:04)
[2020-04-19] MEDS: Clotrimazole/Betamethasone Cream 45 GM TUBE TOP SCH ×2 (08:04→15:04)
[2020-04-19] MEDS: Folic Acid/Vit B Comp W-C PO SCH (08:04)
[2020-04-19] MEDS: Saccharomyces boulardii 250 MG CAP PO SCH (08:05)
[2020-04-19] MEDS: Midodrine HCl 5 MG TAB PO SCH (08:06)
[2020-04-19] MEDS: Acetaminophen 500 MG TAB PO PRN (09:54)
[2020-04-19] MEDS: Warfarin Sodium 10 MG TAB PO SCH ×2 (16:09→16:18)
[2020-04-19 17:36] VITALS: BP 96/59; TEMP 96.4
== END 2020-04-19 17:55 | disposition hospice, home (50) | DRG 640 ==
LOC: ERS 05:55 → ERHOLD 08:25 → 2SE 04-01 02:48 → CCU 04-05 17:06 → 2NO 04-07 19:01 → T4-A 04-08 15:45 → CCU 04-10 14:32 → IMCU/EMU 04-11 14:03 → 3SE 04-13 22:00 → 2SW 04-14 18:50
PROVIDERS: ADMIT Internal Medicine; ATTEND Internal Medicine
PROC: 5A1D70Z Performance of Urinary Filtration, Intermittent, Less than 6 Hours Per Day (ICD-10-PCS; 2020-04-02)
PROC: 0JPT3XZ Removal of Tunneled Vascular Access Device from Trunk Subcutaneous Tissue and Fascia, Percutaneous Approach (ICD-10-PCS; principal; 2020-04-03)
PROC: 05PY33Z Removal of Infusion Device from Upper Vein, Percutaneous Approach (ICD-10-PCS; 2020-04-03)
PROC: 06H033Z Insertion of Infusion Device into Inferior Vena Cava, Percutaneous Approach (ICD-10-PCS; 2020-04-03)
PROC: 5A09557 Assistance with Respiratory Ventilation, Greater than 96 Consecutive Hours, Continuous Positive Airway Pressure (ICD-10-PCS; 2020-04-10)
DX: E87.5 Hyperkalemia (principal); N18.6 End stage renal disease; J96.01 Acute respiratory failure with hypoxia; G92 Toxic encephalopathy; Z66 Do not resuscitate; Z51.5 Encounter for palliative care; J96.22 Acute and chronic respiratory failure with hypercapnia; T82.590A Other mechanical complication of surgically created arteriovenous fistula, initial encounter; I12.0 Hypertensive chronic kidney disease with stage 5 chronic kidney disease or end stage renal disease; I47.1 Supraventricular tachycardia; L03.114 Cellulitis of left upper limb; I87.1 Compression of vein; E87.2 Acidosis; E87.1 Hypo-osmolality and hyponatremia; G25.81 Restless legs syndrome; E11.22 Type 2 diabetes mellitus with diabetic chronic kidney disease; G47.33 Obstructive sleep apnea (adult) (pediatric); L30.9 Dermatitis, unspecified; E87.70 Fluid overload, unspecified; E78.5 Hyperlipidemia, unspecified; F41.9 Anxiety disorder, unspecified; I95.89 Other hypotension; F32.9 Major depressive disorder, single episode, unspecified; R53.1 Weakness; E66.01 Morbid (severe) obesity due to excess calories; D63.1 Anemia in chronic kidney disease; Z20.822 Contact with and (suspected) exposure to COVID-19; Y83.8 Other surgical procedures as the cause of abnormal reaction of the patient, or of later complication, without mention of misadventure at the time of the procedure; T42.75XA Adverse effect of unspecified antiepileptic and sedative-hypnotic drugs, initial encounter; Z90.49 Acquired absence of other specified parts of digestive tract; Z90.89 Acquired absence of other organs; Z79.01 Long term (current) use of anticoagulants; Z68.28 Body mass index [BMI] 28.0-28.9, adult; Z99.2 Dependence on renal dialysis; Z91.15 Patient's noncompliance with renal dialysis
CPT/HCPCS: 36415; 36416; 36600; 71045; 74176; 76000; 80048; 80053; 82805; 83605; 83880; 85025; 85027; 85610; 85730; 87040; 87340; 87635; 90935; 93005; 93306; 93970; 94660; 94760; 96365; 96366; 96367; 96375; C1752; G0257; J0171; J1644; J1815; J1956; J2001; J2250; J2310; J3010; J3430; J3490; J7050; P9047; S0020; U0003; U0005